=== PATIENT | male | born 1950 | race Caucasian/White ===

== ENCOUNTER → 2016-04-27 | Outpatient (CLI) | payer MEDICARE, OTHER ==
[~2016-04-27] VITALS: Ht 177.8 cm; Wt 124.3 kg
[~2016-04-27] MED LIST: ADENOSINE 104 MG in GIVE UN-DILUTED 0 ML IV ONE; ADENOSINE 90 MG/30 ML INJ IV ONE
== END | disposition home or self-care (01) ==
LOC: Rad HDHVI 08:05
PROVIDERS: ATTEND Internal Medicine Cardiovascular Disease
DX: I10 Essential (primary) hypertension (principal); E11.9 Type 2 diabetes mellitus without complications; E78.00 Pure hypercholesterolemia, unspecified; Z95.0 Presence of cardiac pacemaker
CPT/HCPCS: 78452; 93005; 96374; 96375; A9500; J0153

== ENCOUNTER → 2016-06-12 | Outpatient (CLI) | payer MEDICARE, OTHER ==
[2016-06-12 11:32] LABS: INR 2.2 (0.7-1.3); Prothrombin Time 26.3 sec (9.0-12.0)
== END | disposition home or self-care (01) ==
LOC: LAB 11:18
PROVIDERS: ATTEND Internal Medicine Cardiovascular Disease
DX: R79.1 Abnormal coagulation profile (principal)
CPT/HCPCS: 85610

== ENCOUNTER → 2016-07-18 | Outpatient (CLI) | payer MEDICARE, OTHER ==
[2016-07-18 12:39] LABS: Urine Bilirubin Negative (Negative); Urine Blood Negative /uL (Negative); Urine Color Yellow (Yellow); Urine Glucose Normal (Normal); Urine Ketone Negative (Negative); Urine Nitrite Negative (Negative); Urine Urobilinogen Normal (Negative); Urine pH 6.5 (5.0-8.0)
== END | disposition home or self-care (01) ==
LOC: LAB 10:45
PROVIDERS: ATTEND Internal Medicine Cardiovascular Disease
DX: N39.0 Urinary tract infection, site not specified (principal)
CPT/HCPCS: 81003

== ENCOUNTER → 2016-09-06 | Outpatient (CLI) | payer MEDICARE, OTHER ==
[2016-09-06 16:57] LABS: INR 2.4 (0.7-1.3); Prothrombin Time 28.9 sec (9.0-12.0)
== END | disposition home or self-care (01) ==
LOC: LAB 15:23
PROVIDERS: ATTEND Internal Medicine Cardiovascular Disease
DX: R79.1 Abnormal coagulation profile (principal)
CPT/HCPCS: 85610

== ENCOUNTER → 2016-09-13 | Outpatient (CLI) | payer MEDICARE | END | disposition home or self-care (01) | LOC: Rad HDHVI 08:43 | PROVIDERS: ATTEND Internal Medicine Cardiovascular Disease | DX: M47.812 Spondylosis without myelopathy or radiculopathy, cervical region (principal); M48.02 Spinal stenosis, cervical region; M12.88 Other specific arthropathies, not elsewhere classified, other specified site; M77.9 Enthesopathy, unspecified; M40.292 Other kyphosis, cervical region | CPT/HCPCS: 72125 ==

== ENCOUNTER → 2016-11-17 | Outpatient (CLI) | payer MEDICARE ==
[2016-11-17 12:54] LABS: Basophils # (auto) 0 uL; CONDITION Y; Eosinophils # (auto) 0 uL; Eosinophils % (auto) 0.1 % (0.0-7.0); Hematocrit 38.4 % (41.0-53.0); Hemoglobin 12.9 g/dL (13.5-17.5); Lymphocytes # (auto) 0.7 uL; Lymphocytes % (auto) 9.7 % (10.0-50.0); Mean Corpuscular Hgb Conc. 33.7 g/dL (32.0-36.0); Mean Corpuscular Volume 94.9 fL (80.0-100.0); Monocytes # (auto) 0.5 uL; Monocytes % (auto) 7.1 % (0.0-12.0); Neutrophils % (auto) 83.1 % (37.0-80.0); Platelet Count (auto) 216 10^3/uL (140-450); Red Cell Distribution Width 14.4 % (11.6-16.0); White Blood Cell 7.3 10^3/uL (4.4-10.8)
[2016-11-17 13:07] LABS: Albumin 3.6 g/dL (3.4-5.0); BUN/Creatinine Ratio 26.5; Bilirubin, Direct 0.1 mg/dL (0-0.2); Bilirubin, Total 0.8 mg/dL (0.2-1.0); Calcium 8.4 mg/dL (8.5-10.1)
[2016-11-17 13:14] LABS: Urine Bilirubin Negative (Negative); Urine Blood Negative /uL (Negative); Urine Color Yellow (Yellow); Urine Glucose Normal (Normal); Urine Ketone Negative (Negative); Urine Nitrite Negative (Negative); Urine Urobilinogen Normal (Negative); Urine pH 5.5 (5.0-8.0)
== END | disposition home or self-care (01) ==
LOC: LAB 08:10
PROVIDERS: ATTEND Internal Medicine Cardiovascular Disease
DX: I10 Essential (primary) hypertension (principal); E78.00 Pure hypercholesterolemia, unspecified; K74.1 Hepatic sclerosis; E11.9 Type 2 diabetes mellitus without complications; R97.20 Elevated prostate specific antigen [PSA]; R53.81 Other malaise; E03.9 Hypothyroidism, unspecified; D64.9 Anemia, unspecified; E55.9 Vitamin D deficiency, unspecified; N39.0 Urinary tract infection, site not specified
CPT/HCPCS: 36415; 80048; 80061; 80076; 81003; 82306; 83036; 84153; 84403; 84443; 85025

== ENCOUNTER → 2017-02-12 | Outpatient (CLI) | payer MEDICARE | END | disposition home or self-care (01) | LOC: LAB 10:39 | PROVIDERS: ATTEND Internal Medicine Cardiovascular Disease | DX: R79.1 Abnormal coagulation profile (principal) | CPT/HCPCS: 85610 ==

== ENCOUNTER → 2017-04-02 | Outpatient (CLI) | payer MEDICARE ==
[~2017-04-02] MED LIST changes: -ADENOSINE 104 MG in GIVE UN-DILUTED 0 ML IV ONE; -ADENOSINE 90 MG/30 ML INJ IV ONE; +IOHEXOL 350 MG/ML 100ML IJ ONE
[2017-04-02 11:40] VITALS: BP 114/76
[2017-04-02 12:10] VITALS: BP 107/72
[2017-04-02 16:22] LABS: BUN/Creatinine Ratio 15.3; Basophils # (auto) 0 uL; Basophils % (auto) 0.3 % (0.0-2.0); Calcium 8.9 mg/dL (8.5-10.1); Eosinophils # (auto) 0.1 uL; Eosinophils % (auto) 1.1 % (0.0-7.0); Hematocrit 40.4 % (41.0-53.0); Hemoglobin 13.2 g/dL (13.5-17.5); Lymphocytes # (auto) 1.1 uL; Lymphocytes % (auto) 14.3 % (10.0-50.0); Mean Corpuscular Hemoglobin 31.4 pg (28.0-32.0); Mean Corpuscular Hgb Conc. 32.8 g/dL (32.0-36.0); Mean Corpuscular Volume 95.7 fL (80.0-100.0); Mean Platelet Volume 8.1 fL (6.9-10.8); Monocytes # (auto) 0.7 uL; Monocytes % (auto) 8.6 % (0.0-12.0); Neutrophils % (auto) 75.7 % (37.0-80.0); Nucleated Red Blood Cells % 0.3 %; Platelet Count (auto) 199 10^3/uL (140-450); Potassium 4.3 mmol/L (3.5-5.1); Red Cell Distribution Width 14.1 % (11.8-14.3); White Blood Cell 7.9 10^3/uL (4.4-10.8)
== END | disposition home or self-care (01) ==
LOC: Rad HDHVI 11:24
PROVIDERS: ATTEND Internal Medicine Cardiovascular Disease
DX: I51.7 Cardiomegaly (principal); I25.10 Atherosclerotic heart disease of native coronary artery without angina pectoris; M47.899 Other spondylosis, site unspecified; I10 Essential (primary) hypertension; D64.9 Anemia, unspecified; R94.4 Abnormal results of kidney function studies
CPT/HCPCS: 36415; 71275; 80048; 82565; 85025; 96374; G0463; Q9967

== ENCOUNTER → 2017-04-04 | Outpatient (CLI) | payer MEDICARE | END | disposition home or self-care (01) | LOC: Rad HDHVI 10:10 | PROVIDERS: ATTEND Internal Medicine Cardiovascular Disease | DX: I34.0 Nonrheumatic mitral (valve) insufficiency (principal); I51.7 Cardiomegaly; I70.0 Atherosclerosis of aorta | CPT/HCPCS: 93306 ==

== ENCOUNTER → 2017-07-26 | Outpatient (CLI) | payer MEDICARE | END | disposition home or self-care (01) | LOC: LAB 14:04 | PROVIDERS: ATTEND Internal Medicine | DX: R79.1 Abnormal coagulation profile (principal); I10 Essential (primary) hypertension; E11.9 Type 2 diabetes mellitus without complications; E78.00 Pure hypercholesterolemia, unspecified | CPT/HCPCS: 85610 ==

== ENCOUNTER 2018-02-25 05:43 | Emergency (ER) | payer MEDICARE ==
[~2018-02-25] VITALS: Ht 177.8 cm; Wt 117.9 kg
[2018-02-25 05:58] VITALS: BP 119/73
== END 2018-02-25 07:57 | disposition home or self-care (01) ==
LOC: ER 05:47
DX: R21 Rash and other nonspecific skin eruption (principal); I50.9 Heart failure, unspecified; Z95.0 Presence of cardiac pacemaker; Z88.0 Allergy status to penicillin; Z88.1 Allergy status to other antibiotic agents

== ENCOUNTER → 2018-04-18 | Outpatient (CLI) | payer MEDICARE ==
[2018-04-18 12:31] LABS: Urine Blood Negative /uL (Negative); Urine Specific Gravity 1.018 (1.001-1.035)
[2018-04-18 12:33] LABS: Basophils # (auto) 0 uL; Basophils % (auto) 0.5 % (0.0-2.0); Eosinophils # (auto) 0.1 uL; Eosinophils % (auto) 1.1 % (0.0-7.0); Hemoglobin 13.8 g/dL (13.5-17.5); Lymphocytes # (auto) 0.9 uL; Mean Corpuscular Hemoglobin 31.1 pg (28.0-32.0); Mean Corpuscular Hgb Conc. 32.2 g/dL (32.0-36.0); Mean Corpuscular Volume 96.4 fL (80.0-100.0); Monocytes # (auto) 0.4 uL; Monocytes % (auto) 7.5 % (0.0-12.0); Neutrophils # (auto) 3.6 uL; Neutrophils % (auto) 72.9 % (37.0-80.0); Nucleated Red Blood Cells % 0.3 %; Platelet Count (auto) 162 10^3/uL (140-450); Red Blood Cells 4.46 10^6/uL (4.5-5.90); Red Cell Distribution Width 14.7 % (11.8-14.3)
[2018-04-18 13:28] LABS: Potassium 4.5 mmol/L (3.5-5.1)
[2018-04-18 13:30] LABS: Free T4 (Free Thyroxine) 1.14 ng/dL (0.89-1.76); Prostate Specific Antigen 0.32 ng/mL (0.0-4.0)
[2018-04-18 13:46] LABS: Albumin 3.2 g/dL (3.4-5.0); BUN/Creatinine Ratio 19.3; Bilirubin, Total 0.4 mg/dL (0.2-1.0); Calcium 8.5 mg/dL (8.5-10.1); Total Protein 6.5 g/dL (6.4-8.2)
== END | disposition home or self-care (01) ==
LOC: LAB 08:10
PROVIDERS: ATTEND Internal Medicine Cardiovascular Disease
DX: E03.9 Hypothyroidism, unspecified (principal); E55.9 Vitamin D deficiency, unspecified; E11.9 Type 2 diabetes mellitus without complications; D51.9 Vitamin B12 deficiency anemia, unspecified; C61 Malignant neoplasm of prostate; E29.0 Testicular hyperfunction; N39.0 Urinary tract infection, site not specified; R79.1 Abnormal coagulation profile
CPT/HCPCS: 36415; 80053; 80061; 81003; 82306; 82607; 83036; 84153; 84403; 84439; 84443; 85025; 85610

== ENCOUNTER → 2018-05-14 | Outpatient (CLI) | payer MEDICARE | END | disposition home or self-care (01) | LOC: Rad HDHVI 15:46 | PROVIDERS: ATTEND Internal Medicine | DX: Z01.818 Encounter for other preprocedural examination (principal) | CPT/HCPCS: 71046 ==

== ENCOUNTER → 2018-08-06 | Outpatient (CLI) | payer MEDICARE | END | disposition home or self-care (01) | LOC: LAB 13:10 | PROVIDERS: ATTEND Internal Medicine | DX: R79.1 Abnormal coagulation profile (principal) | CPT/HCPCS: 85610 ==

== ENCOUNTER → 2018-09-24 | Outpatient (CLI) | payer MEDICARE | END | disposition home or self-care (01) | LOC: LAB 10:23 | PROVIDERS: ATTEND Internal Medicine | DX: R79.1 Abnormal coagulation profile (principal) | CPT/HCPCS: 85610 ==

== ENCOUNTER → 2019-01-20 | Outpatient (CLI) | payer MEDICARE | END | disposition home or self-care (01) | LOC: Rad HDHVI 13:57 | PROVIDERS: ATTEND Internal Medicine | DX: I07.1 Rheumatic tricuspid insufficiency (principal); I11.0 Hypertensive heart disease with heart failure; I50.9 Heart failure, unspecified; I42.9 Cardiomyopathy, unspecified | CPT/HCPCS: 93306 ==

== ENCOUNTER → 2019-01-29 | Outpatient (CLI) | payer MEDICARE ==
[~2019-01-29] VITALS: Ht 177.8 cm; Wt 119.7 kg
[~2019-01-29] MED LIST changes: +ADENOSINE 101 MG in GIVE UN-DILUTED 0 ML IV ONE; +ADENOSINE 90 MG/30 ML INJ IV ONE; -IOHEXOL 350 MG/ML 100ML IJ ONE
[2019-01-29 16:01] LABS: Albumin 3.4 g/dL (3.4-5.0); Basophils # (auto) 0 uL; Basophils % (auto) 0.8 % (0.0-2.0); Calcium 8.8 mg/dL (8.5-10.1); Eosinophils # (auto) 0.2 uL; Eosinophils % (auto) 4.9 % (0.0-7.0); Hematocrit 39.6 % (41.0-53.0); Hemoglobin 12.9 g/dL (13.5-17.5); Lymphocytes % (auto) 19.7 % (10.0-50.0); Mean Corpuscular Hgb Conc. 32.7 g/dL (32.0-36.0); Mean Corpuscular Volume 94.8 fL (80.0-100.0); Monocytes # (auto) 0.6 uL; Monocytes % (auto) 10.9 % (0.0-12.0); Neutrophils # (auto) 3.2 uL; Neutrophils % (auto) 63.7 % (37.0-80.0); Platelet Count (auto) 169 10^3/uL (140-450); Potassium 4.1 mmol/L (3.5-5.1); Red Blood Cells 4.18 10^6/uL (4.5-5.90); Red Cell Distribution Width 14.2 % (11.8-14.3)
[2019-01-29 16:06] LABS: BUN/Creatinine Ratio 16.7; Bilirubin, Total 0.5 mg/dL (0.2-1.0)
[2019-01-29 16:11] LABS: Free T4 (Free Thyroxine) 1.03 ng/dL (0.89-1.76); Prostate Specific Antigen 0.26 ng/mL (0.0-4.0)
== END | disposition home or self-care (01) ==
LOC: Rad HDHVI 12:59
PROVIDERS: ATTEND Internal Medicine
DX: E03.9 Hypothyroidism, unspecified (principal); K90.9 Intestinal malabsorption, unspecified; C61 Malignant neoplasm of prostate; E29.1 Testicular hypofunction; N39.0 Urinary tract infection, site not specified; D51.9 Vitamin B12 deficiency anemia, unspecified; Z79.899 Other long term (current) drug therapy
CPT/HCPCS: 36415; 78452; 80053; 80061; 82306; 82607; 83036; 84153; 84403; 84439; 84443; 85025; 93005; 96374; 96375; A9500; J0153

== ENCOUNTER → 2019-02-25 | Outpatient (CLI) | payer MEDICARE ==
[~2019-02-25] MED LIST changes: -ADENOSINE 101 MG in GIVE UN-DILUTED 0 ML IV ONE; -ADENOSINE 90 MG/30 ML INJ IV ONE; +ALPR0.25 PO; +CARV25TA55 PO; +CHOL20002 PO; +COEN30CA10 PO; +FLUO10CA15 PO; +FURO40TA4 PO; +GLIP10TA9 PO; +HYDR-4833 PO; +LISI10TA6 PO; +METF500T PO; +SACU1TAB7 PO; +SIMV-13 PO; +SPIR25TA8 PO; +VENL150T19 PO; +WARF6TAB21 PO
[2019-02-25 09:36] VITALS: BP 96/57
[2019-02-25 09:49] VITALS: BP 91/57
--- NOTE | 2019-02-25 09:49 | NUR ---
Pre-Op Discharge Summary: See e-MAR for any medications given for this visit. Pre-op orders received and carried out per MD of EKG, LABS and chest xrays. Patient given a copy of EKG with instructions to go to [facility] out patient for further follow up care.
[2019-02-25 11:56] LABS: Basophils # (auto) 0.1 uL; Basophils % (auto) 1.1 % (0.0-2.0); Eosinophils # (auto) 0.2 uL; Eosinophils % (auto) 4.7 % (0.0-7.0); Hematocrit 39.5 % (41.0-53.0); Hemoglobin 12.9 g/dL (13.5-17.5); Lymphocytes # (auto) 0.7 uL; Lymphocytes % (auto) 15.7 % (10.0-50.0); Mean Corpuscular Hemoglobin 30.9 pg (28.0-32.0); Mean Corpuscular Hgb Conc. 32.7 g/dL (32.0-36.0); Mean Corpuscular Volume 94.6 fL (80.0-100.0); Monocytes # (auto) 0.4 uL; Neutrophils # (auto) 3.3 uL; Neutrophils % (auto) 70.5 % (37.0-80.0); Nucleated Red Blood Cells % 0.1 %; Platelet Count (auto) 154 10^3/uL (140-450); Red Blood Cells 4.18 10^6/uL (4.5-5.90); Red Cell Distribution Width 14.1 % (11.8-14.3); White Blood Cell 4.7 10^3/uL (4.4-10.8)
[2019-02-25 11:57] LABS: Calcium 8.6 mg/dL (8.5-10.1); Potassium 4.3 mmol/L (3.5-5.1)
[2019-02-25 12:01] LABS: INR 1.74 (0.9-1.15); Partial Thromboplastin Time 31.7 sec (23.64-32.05)
== END | disposition home or self-care (01) ==
LOC: Rad HDHVI 09:19
PROVIDERS: ATTEND Internal Medicine Cardiovascular Disease
DX: Z01.812 Encounter for preprocedural laboratory examination (principal); I70.0 Atherosclerosis of aorta; J98.11 Atelectasis; M25.78 Osteophyte, vertebrae
CPT/HCPCS: 36415; 71046; 80048; 85025; 85610; 85730; 93005; G0463

== ENCOUNTER 2019-02-27 07:59 | Day surgery (SDC) | payer MEDICARE ==
[~2019-02-27] VITALS: Ht 177.8 cm; Wt 116.6 kg
[2019-02-27] MEDS ORDERED: IOHEXOL 350 MG/ML 100ML IJ ONE (10:54)
[2019-02-27] MEDS ORDERED: LIDOCAINE 2%HCL (LOCAL ANESTH.) INJ 20ML MDV ONE (10:54)
[2019-02-27] MEDS ORDERED: SODIUM CHL 0.9% 0 ML ONE (11:01)
[2019-02-27] MEDS ORDERED: ANGIOMAX 250 MG VIAL IV ONE (11:01)
[2019-02-27] MEDS ORDERED: fentaNYL CITRATE 100 MCG/2 ML VL ONE (11:01)
[2019-02-27] MEDS ORDERED: MIDAZOLAM HCL 1MG/1ML-2 ML VIAL ONE (11:01)
== END 2019-02-27 13:30 | disposition home or self-care (01) ==
LOC: CATH 07:59
PROVIDERS: ATTEND Internal Medicine Cardiovascular Disease
DX: I42.0 Dilated cardiomyopathy (principal); E78.5 Hyperlipidemia, unspecified; I48.0 Paroxysmal atrial fibrillation; E11.9 Type 2 diabetes mellitus without complications; I11.0 Hypertensive heart disease with heart failure; I50.9 Heart failure, unspecified; Z95.810 Presence of automatic (implantable) cardiac defibrillator; Z79.01 Long term (current) use of anticoagulants; Z79.899 Other long term (current) drug therapy; Z98.890 Other specified postprocedural states; Z87.891 Personal history of nicotine dependence; Z88.8 Allergy status to other drugs, medicaments and biological substances
CPT/HCPCS: 93458; C1760; C1894; J1644; J2250; J3010; Q9967; 99152

== ENCOUNTER → 2019-04-23 | Outpatient (CLI) | payer MEDICARE | END | disposition home or self-care (01) | LOC: LAB 11:03 | PROVIDERS: ATTEND Internal Medicine Cardiovascular Disease | DX: R79.1 Abnormal coagulation profile (principal) | CPT/HCPCS: 85610 ==

== ENCOUNTER → 2019-09-01 | Outpatient (CLI) | payer MEDICARE | END | disposition home or self-care (01) | LOC: LAB 09:43 | PROVIDERS: ATTEND Internal Medicine Cardiovascular Disease | DX: R79.1 Abnormal coagulation profile (principal) | CPT/HCPCS: 85610 ==

== ENCOUNTER → 2019-10-01 | Outpatient (CLI) | payer MEDICARE | END | disposition home or self-care (01) | LOC: LAB 10:59 | PROVIDERS: ATTEND Internal Medicine Cardiovascular Disease | DX: R79.1 Abnormal coagulation profile (principal) | CPT/HCPCS: 85610 ==

== ENCOUNTER → 2019-11-05 | Outpatient (CLI) | payer MEDICARE ==
[~2019-11-05] MED LIST changes: +LISI-648 PO; -LISI10TA6 PO
[2019-11-05 13:13] LABS: Basophils # (auto) 0 10 ^3/uL (0-0.2); Basophils % (auto) 0.4 % (0.0-2.0); Eosinophils # (auto) 0.1 10 ^3/uL (0-0.8); Eosinophils % (auto) 1.9 % (0.0-7.0); Hemoglobin 13.6 g/dL (13.5-17.5); Lymphocytes # (auto) 0.9 10 ^3/uL (0.4-5.4); Lymphocytes % (auto) 14.9 % (10.0-50.0); Mean Corpuscular Hemoglobin 31.2 pg (28.0-32.0); Mean Corpuscular Hgb Conc. 33.2 g/dL (32.0-36.0); Mean Corpuscular Volume 93.9 fL (80.0-100.0); Monocytes # (auto) 0.4 10 ^3/uL (0-1.3); Monocytes % (auto) 7.5 % (0.0-12.0); Neutrophils # (auto) 4.4 10 ^3/uL (1.6-8.6); Neutrophils % (auto) 75.3 % (37.0-80.0); Platelet Count (auto) 207 10^3/uL (140-450); Red Blood Cells 4.37 10^6/uL (4.5-5.90); Red Cell Distribution Width 14.7 % (11.8-14.3); White Blood Cell 5.9 10^3/uL (4.4-10.8)
[2019-11-05 13:30] LABS: INR 3.35 (0.9-1.15); Partial Thromboplastin Time 34.4 sec (23.64-32.05)
[2019-11-05 13:47] LABS: Albumin 3.4 g/dL (3.4-5.0); Calcium 9.2 mg/dL (8.5-10.1)
[2019-11-05 13:51] LABS: Bilirubin, Direct 0.2 mg/dL (0-0.2); Bilirubin, Total 0.5 mg/dL (0.2-1.0); Total Protein 7.2 g/dL (6.4-8.2)
== END | disposition home or self-care (01) ==
LOC: LAB 12:26
PROVIDERS: ATTEND Internal Medicine Cardiovascular Disease
DX: C61 Malignant neoplasm of prostate (principal); E03.9 Hypothyroidism, unspecified; K90.9 Intestinal malabsorption, unspecified; N39.0 Urinary tract infection, site not specified; D51.9 Vitamin B12 deficiency anemia, unspecified; E29.1 Testicular hypofunction; Z00.00 Encounter for general adult medical examination without abnormal findings; Z79.899 Other long term (current) drug therapy
CPT/HCPCS: 36415; 80048; 80061; 80076; 82306; 83036; 84153; 84403; 84443; 85025; 85610; 85730

== ENCOUNTER → 2019-12-10 | Outpatient (CLI) | payer MEDICARE ==
[2019-12-10 12:20] LABS: Basophils # (auto) 0 10 ^3/uL (0-0.2); Basophils % (auto) 0.5 % (0.0-2.0); Eosinophils # (auto) 0.1 10 ^3/uL (0-0.8); Eosinophils % (auto) 2.5 % (0.0-7.0); Hematocrit 33.4 % (41.0-53.0); Hemoglobin 11.2 g/dL (13.5-17.5); Lymphocytes # (auto) 0.7 10 ^3/uL (0.4-5.4); Lymphocytes % (auto) 12.3 % (10.0-50.0); Mean Corpuscular Hemoglobin 31.7 pg (28.0-32.0); Mean Corpuscular Hgb Conc. 33.4 g/dL (32.0-36.0); Mean Corpuscular Volume 94.9 fL (80.0-100.0); Monocytes # (auto) 0.5 10 ^3/uL (0-1.3); Monocytes % (auto) 9.6 % (0.0-12.0); Neutrophils # (auto) 4.1 10 ^3/uL (1.6-8.6); Neutrophils % (auto) 75.1 % (37.0-80.0); Platelet Count (auto) 177 10^3/uL (140-450); Red Blood Cells 3.52 10^6/uL (4.5-5.90); White Blood Cell 5.5 10^3/uL (4.4-10.8)
[2019-12-10 12:32] LABS: Urine Blood Negative /uL (Negative); Urine Specific Gravity 1.024 (1.001-1.035)
== END | disposition home or self-care (01) ==
LOC: Rad HDHVI 10:29
PROVIDERS: ATTEND Internal Medicine Cardiovascular Disease
DX: D64.9 Anemia, unspecified (principal); N39.0 Urinary tract infection, site not specified; R50.9 Fever, unspecified
CPT/HCPCS: 36415; 71046; 81003; 85025

== ENCOUNTER → 2019-12-15 | Outpatient (CLI) | payer MEDICARE | END | disposition home or self-care (01) | LOC: Rad HDHVI 07:58 | PROVIDERS: ATTEND Internal Medicine Cardiovascular Disease | DX: I34.0 Nonrheumatic mitral (valve) insufficiency (principal); I51.7 Cardiomegaly; I50.43 Acute on chronic combined systolic (congestive) and diastolic (congestive) heart failure; I42.0 Dilated cardiomyopathy; R00.2 Palpitations | CPT/HCPCS: 93306 ==

== ENCOUNTER → 2020-05-20 | Outpatient (CLI) | payer MEDICARE | END | disposition home or self-care (01) | LOC: LAB 14:08 | PROVIDERS: ATTEND Internal Medicine | DX: R79.1 Abnormal coagulation profile (principal) | CPT/HCPCS: 85610 ==

== ENCOUNTER → 2020-07-07 | Outpatient (CLI) | payer MEDICARE | END | disposition home or self-care (01) | LOC: Rad HDHVI 09:46 | PROVIDERS: ATTEND Internal Medicine Cardiovascular Disease | DX: I08.0 Rheumatic disorders of both mitral and aortic valves (principal); R07.89 Other chest pain | CPT/HCPCS: 93306 ==

== ENCOUNTER → 2020-07-16 | Outpatient (CLI) | payer MEDICARE ==
[2020-07-16 11:34] LABS: Urine Blood Negative /uL (Negative); Urine Specific Gravity 1.023 (1.001-1.035)
[2020-07-16 11:35] LABS: Basophils # (auto) 0 10 ^3/uL (0-0.2); Basophils % (auto) 0.7 % (0.0-2.0); Eosinophils # (auto) 0.1 10 ^3/uL (0-0.8); Eosinophils % (auto) 1.6 % (0.0-7.0); Hematocrit 34.9 % (41.0-53.0); Hemoglobin 11.8 g/dL (13.5-17.5); Lymphocytes # (auto) 1.3 10 ^3/uL (0.4-5.4); Lymphocytes % (auto) 20.2 % (10.0-50.0); Mean Corpuscular Hemoglobin 32.3 pg (28.0-32.0); Mean Corpuscular Hgb Conc. 33.6 g/dL (32.0-36.0); Mean Corpuscular Volume 95.9 fL (80.0-100.0); Monocytes # (auto) 0.5 10 ^3/uL (0-1.3); Monocytes % (auto) 7.9 % (0.0-12.0); Neutrophils # (auto) 4.4 10 ^3/uL (1.6-8.6); Neutrophils % (auto) 69.6 % (37.0-80.0); Platelet Count (auto) 161 10^3/uL (140-450); Red Blood Cells 3.64 10^6/uL (4.5-5.90); Red Cell Distribution Width 14.2 % (11.8-14.3); White Blood Cell 6.3 10^3/uL (4.4-10.8)
[2020-07-16 11:43] LABS: Albumin 3.2 g/dL (3.4-5.0); BUN/Creatinine Ratio 18.8; Calcium 8.8 mg/dL (8.5-10.1); Potassium 4.3 mmol/L (3.5-5.1)
[2020-07-16 11:47] LABS: Bilirubin, Total 0.5 mg/dL (0.2-1.0); Total Protein 6.2 g/dL (6.4-8.2)
[2020-07-16 11:57] LABS: Free T4 (Free Thyroxine) 1.27 ng/dL (0.89-1.76)
[2020-07-16 11:58] LABS: Prostate Specific Antigen 0.13 ng/mL (0.0-4.0)
== END | disposition home or self-care (01) ==
LOC: LAB 08:00
PROVIDERS: ATTEND Internal Medicine Cardiovascular Disease
DX: C61 Malignant neoplasm of prostate (principal); D51.3 Other dietary vitamin B12 deficiency anemia; I10 Essential (primary) hypertension; E11.9 Type 2 diabetes mellitus without complications; E55.9 Vitamin D deficiency, unspecified; D64.9 Anemia, unspecified; R00.2 Palpitations; R53.1 Weakness; R30.0 Dysuria
CPT/HCPCS: 36415; 80053; 80061; 81003; 82306; 82607; 83036; 84153; 84403; 84439; 84443; 85025

== ENCOUNTER 2020-08-11 18:43 | Emergency (ER) | payer MEDICARE ==
[~2020-08-11] VITALS: Ht 177.8 cm; Wt 113.4 kg
[~2020-08-11 18:43] MED LIST changes: -LISI-648 PO; +LISI-716 PO
[2020-08-12] MEDS ORDERED: LIDOCAINE VISCOUS 2% 15ML UD PO ONE (00:30)
[2020-08-12 01:30] VITALS: BP 110/73
== END 2020-08-12 01:38 | disposition home or self-care (01) ==
LOC: ER 18:44
DX: R07.0 Pain in throat (principal); I50.9 Heart failure, unspecified; Z88.1 Allergy status to other antibiotic agents; Z79.899 Other long term (current) drug therapy
CPT/HCPCS: 70360; 70490

== ENCOUNTER → 2021-03-30 | Outpatient (CLI) | payer MEDICARE ==
[2021-03-30 11:28] LABS: Urine Blood Negative /uL (Negative); Urine Specific Gravity 1.025 (1.001-1.035)
[2021-03-30 11:30] LABS: Basophils # (auto) 0 10 ^3/uL (0-0.2); Basophils % (auto) 0.6 % (0.0-2.0); Eosinophils # (auto) 0.1 10 ^3/uL (0-0.8); Eosinophils % (auto) 1.3 % (0.0-7.0); Hematocrit 35.8 % (41.0-53.0); Hemoglobin 11.8 g/dL (13.5-17.5); Lymphocytes # (auto) 0.9 10 ^3/uL (0.4-5.4); Lymphocytes % (auto) 16.1 % (10.0-50.0); Mean Corpuscular Hemoglobin 31.2 pg (28.0-32.0); Mean Corpuscular Hgb Conc. 32.9 g/dL (32.0-36.0); Mean Corpuscular Volume 94.8 fL (80.0-100.0); Monocytes # (auto) 0.4 10 ^3/uL (0-1.3); Monocytes % (auto) 7.4 % (0.0-12.0); Neutrophils # (auto) 4.1 10 ^3/uL (1.6-8.6); Neutrophils % (auto) 74.6 % (37.0-80.0); Nucleated Red Blood Cells % 0.1 %; Red Blood Cells 3.77 10^6/uL (4.5-5.90); Red Cell Distribution Width 14.7 % (11.8-14.3); White Blood Cell 5.5 10^3/uL (4.4-10.8)
[2021-03-30 11:40] LABS: INR 1.62 (0.9-1.15); Partial Thromboplastin Time 27.8 sec (23.6-33.0)
[2021-03-30 11:46] LABS: Albumin 3.1 g/dL (3.4-5.0); BUN/Creatinine Ratio 23.9; Calcium 8.6 mg/dL (8.5-10.1); Potassium 4.3 mmol/L (3.5-5.1)
[2021-03-30 11:50] LABS: Bilirubin, Total 0.5 mg/dL (0.2-1.0); Total Protein 6.4 g/dL (6.4-8.2)
[2021-03-30 11:55] LABS: Free T4 (Free Thyroxine) 1.15 ng/dL (0.89-1.76); Prostate Specific Antigen 0.08 ng/mL (0.0-4.0)
== END | disposition home or self-care (01) ==
LOC: LAB 08:01
PROVIDERS: ATTEND Internal Medicine Cardiovascular Disease
DX: C61 Malignant neoplasm of prostate (principal); D51.3 Other dietary vitamin B12 deficiency anemia; E11.9 Type 2 diabetes mellitus without complications; R00.2 Palpitations; D64.9 Anemia, unspecified; R53.1 Weakness; R30.0 Dysuria; E55.9 Vitamin D deficiency, unspecified; I11.0 Hypertensive heart disease with heart failure; I50.9 Heart failure, unspecified
CPT/HCPCS: 36415; 80053; 80061; 81003; 82306; 82607; 83036; 84153; 84403; 84439; 84443; 85025; 85610; 85730; 87086

== ENCOUNTER → 2021-04-11 | Outpatient (CLI) | payer MEDICARE | END | disposition home or self-care (01) | LOC: Rad HDHVI 07:59 | PROVIDERS: ATTEND Internal Medicine Cardiovascular Disease | DX: I65.22 Occlusion and stenosis of left carotid artery (principal); I10 Essential (primary) hypertension; E78.5 Hyperlipidemia, unspecified | CPT/HCPCS: 93880 ==

== ENCOUNTER → 2021-05-12 | Outpatient (CLI) | payer MEDICARE | END | disposition home or self-care (01) | LOC: Rad HDHVI 12:46 | PROVIDERS: ATTEND Internal Medicine Cardiovascular Disease | DX: I08.0 Rheumatic disorders of both mitral and aortic valves (principal); R00.2 Palpitations; R42 Dizziness and giddiness | CPT/HCPCS: 93306 ==

== ENCOUNTER 2021-08-11 08:03 | Inpatient (IN) | payer MEDICARE ==
[~2021-08-11] VITALS: Ht 177.8 cm; Wt 113.0 kg
[2021-08-11] VITALS (22 sets, daily range): BP systolic 73–120; BP diastolic 38–64
[2021-08-11 08:58] LABS: Basophils # (auto) 0 10 ^3/uL (0-0.2); Basophils % (auto) 0.4 % (0.0-2.0); Eosinophils # (auto) 0.1 10 ^3/uL (0-0.8); Eosinophils % (auto) 1.7 % (0.0-7.0); Hemoglobin 12.3 g/dL (13.5-17.5); Lymphocytes # (auto) 1.2 10 ^3/uL (0.4-5.4); Lymphocytes % (auto) 13.6 % (10.0-50.0); Mean Corpuscular Hemoglobin 31.3 pg (28.0-32.0); Mean Corpuscular Hgb Conc. 33.2 g/dL (32.0-36.0); Mean Corpuscular Volume 94.2 fL (80.0-100.0); Monocytes # (auto) 0.4 10 ^3/uL (0-1.3); Monocytes % (auto) 4.8 % (0.0-12.0); Neutrophils # (auto) 6.8 10 ^3/uL (1.6-8.6); Neutrophils % (auto) 79.5 % (37.0-80.0); Red Blood Cells 3.93 10^6/uL (4.5-5.90); Red Cell Distribution Width 13.8 % (11.8-14.3); White Blood Cell 8.5 10^3/uL (4.4-10.8)
[2021-08-11 09:18] LABS: Albumin 3.6 g/dL (3.4-5.0); Calcium 9.1 mg/dL (8.5-10.1); Potassium 4.3 mmol/L (3.5-5.1)
[2021-08-11 09:20] LABS: BUN/Creatinine Ratio 23.6
[2021-08-11 09:23] LABS: Bilirubin, Total 0.5 mg/dL (0.2-1.0)
[2021-08-11] MEDS ORDERED: FUROSEMIDE 20 MG/2 ML VIAL IV ONE (11:15)
[2021-08-11] MEDS ORDERED: levoFLOXacin 750MG 150 ML IV ONE ×2 (11:15→12:00)
[2021-08-11] MEDS ORDERED: MORPHINE SULFATE INJ 2 MG/ml SYRG IV PRN ×2 (11:30→12:00)
[2021-08-11] MEDS ORDERED: NITROGLYCERIN 0.4 MG SL TAB SL PRN (11:30)
[2021-08-11] MEDS ORDERED: DOBUTamine 1000MCG/ML 250 ML IV SCH (12:00)
[2021-08-11] MEDS ORDERED: DOCUSATE SOD 100 MG CAP PO PRN (12:00)
[2021-08-11] MEDS ORDERED: LORazepam 0.5 MG TAB PO PRN (12:00)
[2021-08-11] MEDS ORDERED: ACETAMINOPHEN 325 MG TAB PO PRN (12:00)
[2021-08-11] MEDS ORDERED: ONDANSETRON HCL 4 MG/2 ML VIAL IV PRN (12:00)
[2021-08-11] MEDS ORDERED: hydrALAZINE HCL 20 MG/ML VL IV PRN (12:00)
[2021-08-11] MEDS ORDERED: FUROSEMIDE 40 MG/4 ML VIAL IV ONE ×2 (12:00→15:00)
[2021-08-11 12:48] LABS: Magnesium 1.8 mg/dL (1.6-2.6); Phosphorus 3.5 mg/dL (2.5-4.90)
[2021-08-11 13:00] LABS: INR 2.34 (0.9-1.15); Partial Thromboplastin Time 29.3 sec (23.6-33.0)
[2021-08-11] MEDS: DOPamine 1600MCG/ML D5W 250 ML IV SCH (13:13)
[2021-08-11] MEDS: IPRATROPIUM BROM 0.5 MG/2.5ML INH SOL NEB SCH ×3 (13:21→22:16)
[2021-08-11] MEDS ORDERED: NOREPINEPHRINE 8 MG/250ML KIT 250 ML IV ONE (14:57)
[2021-08-11] MEDS: NOREPINEPHRINE 8 MG/250ML KIT 250 ML IV SCH (15:00)
[2021-08-11] MEDS: FUROSEMIDE 40 MG/4 ML VIAL IV SCH (18:26)
[2021-08-11] MEDS ORDERED: TEMAZEPAM 15 MG CAP PO PRN (21:45)
[2021-08-11] MEDS: ATORVASTATIN 20 MG TAB PO SCH (22:42)
[2021-08-12] VITALS (91 sets, daily range): BP systolic 70–149; BP diastolic 24–121
[2021-08-12] MEDS: NOREPINEPHRINE 8 MG/250ML KIT 250 ML IV SCH (00:46)
[2021-08-12] MEDS: DOPamine 1600MCG/ML D5W 250 ML IV SCH ×3 (00:46→12:48)
[2021-08-12] MEDS ORDERED: ALPRAZolam 0.25 MG TAB ONE (01:16)
[2021-08-12] MEDS: ALPRAZolam 0.25 MG TAB PO PRN ×2 (01:18→20:01)
[2021-08-12] MEDS: IPRATROPIUM BROM 0.5 MG/2.5ML INH SOL NEB SCH ×6 (02:27→22:04)
[2021-08-12 03:56] LABS: Basophils # (auto) 0.1 10 ^3/uL (0-0.2); Basophils % (auto) 0.4 % (0.0-2.0); Eosinophils # (auto) 0 10 ^3/uL (0-0.8); Eosinophils % (auto) 0.2 % (0.0-7.0); Hematocrit 35.3 % (41.0-53.0); Lymphocytes % (auto) 6.6 % (10.0-50.0); Mean Corpuscular Hemoglobin 31.4 pg (28.0-32.0); Mean Corpuscular Hgb Conc. 34.1 g/dL (32.0-36.0); Mean Corpuscular Volume 92.3 fL (80.0-100.0); Monocytes % (auto) 6.5 % (0.0-12.0); Neutrophils # (auto) 12.6 10 ^3/uL (1.6-8.6); Neutrophils % (auto) 86.3 % (37.0-80.0); Nucleated Red Blood Cells % 0.1 %; Red Blood Cells 3.82 10^6/uL (4.5-5.90); White Blood Cell 14.6 10^3/uL (4.4-10.8)
[2021-08-12 04:14] LABS: Albumin 2.9 g/dL (3.4-5.0); Calcium 8.6 mg/dL (8.5-10.1); Magnesium 1.2 mg/dL (1.6-2.6)
[2021-08-12 04:18] LABS: Bilirubin, Total 1.4 mg/dL (0.2-1.0); Phosphorus 2.3 mg/dL (2.5-4.90); Total Protein 6.2 g/dL (6.4-8.2)
[2021-08-12 04:31] LABS: INR 2.28 (0.9-1.15); Partial Thromboplastin Time 37.6 sec (23.6-33.0)
[2021-08-12] MEDS: FUROSEMIDE 40 MG/4 ML VIAL IV SCH (06:16)
[2021-08-12] MEDS ORDERED: levoFLOXacin 750MG 150 ML IV SCH (10:00)
[2021-08-12] MEDS ORDERED: ASPirin 81 mg TAB PO SCH (10:00)
[2021-08-12] MEDS ORDERED: SACUBITRIL-VALSARTAN 24mg/26mg TAB PO SCH (10:00)
[2021-08-12] MEDS ORDERED: ENOXAPARIN SOD 40 MG/0.4 ML SYRINGE SC SCH (10:00)
[2021-08-12] MEDS: CARVEDILOL 3.125 MG TAB PO SCH ×2 (10:00→21:49)
[2021-08-12] MEDS: CHOLECALCIFEROL (VITD3) 2,000 UNIT CAP/TAB PO SCH ×2 (10:09→13:41)
[2021-08-12] MEDS: FLUoxetine HCL 10 MG CAP PO SCH (10:10)
[2021-08-12] MEDS: FAMOTIDINE (10MG/ML) 2ML VL IV SCH (10:10)
[2021-08-12] MEDS: ACCU-CHEK COMFORT CURVE STRIP VI SCH ×3 (11:30→22:27)
[2021-08-12] MEDS ORDERED: DEXTROSE (50%) 50ML SYRG IV PRN (11:45)
[2021-08-12] MEDS: InsuLIN REG 1unit/0.01ml Soln (100units/ml) SC SCH ×3 (12:03→23:00)
[2021-08-12] MEDS: MAGNESIUM SULFATE 1GM/100ML 100 ML IV SCH ×4 (12:53→15:55)
[2021-08-12] MEDS ORDERED: MEROPENEM 500MG IVPB 50 ML IV ONE (15:00)
[2021-08-12] MEDS ORDERED: MEROPENEM 1GM IVPB 100 ML IV ONE (15:20)
[2021-08-12] MEDS: ACETAMINOPHEN 325 MG TAB PO PRN ×2 (16:22→22:28)
[2021-08-12] MEDS ORDERED: WARFARIN SODIUM 2.5 MG TAB PO ONE (17:00)
[2021-08-12] MEDS ORDERED: MEROPENEM 500MG IVPB 50 ML IV SCH (22:00)
[2021-08-12] MEDS: MELATONIN 5MG TABLET PO PRN (22:27)
[2021-08-12] MEDS: ATORVASTATIN 20 MG TAB PO SCH (22:27)
[2021-08-12] MEDS: MEROPENEM 1GM IVPB 100 ML IV SCH (23:03)
[2021-08-12] MEDS: NOREPINEPHRINE BITARTRATE 32 MG in SODIUM CHL 0.9% 218 ML IV SCH (23:04)
[2021-08-13] VITALS (86 sets, daily range): BP systolic 85–131; BP diastolic 42–83
[2021-08-13] MEDS: IPRATROPIUM BROM 0.5 MG/2.5ML INH SOL NEB SCH ×6 (02:06→22:28)
[2021-08-13] MEDS: PHENYLEPHRINE IV 250 ML IV SCH ×2 (02:45→11:05)
[2021-08-13 03:36] LABS: Basophils # (auto) 0 10 ^3/uL (0-0.2); Basophils % (auto) 0.3 % (0.0-2.0); Eosinophils # (auto) 0.1 10 ^3/uL (0-0.8); Eosinophils % (auto) 0.9 % (0.0-7.0); Hematocrit 35.1 % (41.0-53.0); Hemoglobin 11.8 g/dL (13.5-17.5); Lymphocytes # (auto) 0.8 10 ^3/uL (0.4-5.4); Mean Corpuscular Hemoglobin 31.4 pg (28.0-32.0); Mean Corpuscular Hgb Conc. 33.8 g/dL (32.0-36.0); Mean Corpuscular Volume 93.1 fL (80.0-100.0); Monocytes # (auto) 0.7 10 ^3/uL (0-1.3); Monocytes % (auto) 5.7 % (0.0-12.0); Neutrophils # (auto) 11.1 10 ^3/uL (1.6-8.6); Neutrophils % (auto) 87.1 % (37.0-80.0); Red Blood Cells 3.77 10^6/uL (4.5-5.90); Red Cell Distribution Width 14.4 % (11.8-14.3); White Blood Cell 12.8 10^3/uL (4.4-10.8)
[2021-08-13 03:50] LABS: INR 1.91 (0.9-1.15)
[2021-08-13 03:51] LABS: BUN/Creatinine Ratio 17.7; Calcium 8.7 mg/dL (8.5-10.1); Potassium 3.5 mmol/L (3.5-5.1)
[2021-08-13] MEDS: MEROPENEM 1GM IVPB 100 ML IV SCH ×3 (06:32→22:39)
[2021-08-13] MEDS: ACCU-CHEK COMFORT CURVE STRIP VI SCH ×4 (06:32→22:00)
[2021-08-13] MEDS: InsuLIN REG 1unit/0.01ml Soln (100units/ml) SC SCH ×4 (06:38→22:29)
[2021-08-13 07:28] LABS: Urine Bacteria NONE SEEN /hpf (None Seen); Urine Blood 2+ /uL (Negative); Urine Hyaline Cast FEW /lpf (0 - 2); Urine Specific Gravity 1.014 (1.001-1.035); Urine WBC 12 /hpf (0 - 3); Urine WBC Clumps PRESENT /hpf (None Seen)
[2021-08-13 07:37] LABS: Alcohol, Urine < 3.0 mg/dL (0-10); Amphetamine Screen, Urine NEGATIVE (NEGATIVE); Barbiturate Scree,Urine NEGATIVE (NEGATIVE); Benzodiazephine Screen, Urine NEGATIVE (NEGATIVE); Cannabinoid Screen, Urine NEGATIVE (NEGATIVE); Cocaine Screen, Urine NEGATIVE (NEGATIVE); Opiate Scree,Urine NEGATIVE (NEGATIVE); Phencyclidine Screen, Urine NEGATIVE (NEGATIVE)
[2021-08-13] MEDS: CARVEDILOL 3.125 MG TAB PO SCH (10:00)
[2021-08-13] MEDS: FUROSEMIDE 40 MG TAB PO SCH (10:13)
[2021-08-13] MEDS: FLUoxetine HCL 10 MG CAP PO SCH (10:14)
[2021-08-13] MEDS: FAMOTIDINE (10MG/ML) 2ML VL IV SCH (10:32)
[2021-08-13 14:19] LABS: Protein, Urine 43.6 mg/dL (0.0-11.9)
[2021-08-13 14:41] LABS: CRP High Sensitivity 13.3 mg/dL (< 0.3)
[2021-08-13] MEDS ORDERED: WARFARIN SODIUM 2 MG TAB PO ONE (17:00)
[2021-08-13] MEDS: ATORVASTATIN 20 MG TAB PO SCH (20:24)
[2021-08-13] MEDS: MELATONIN 5MG TABLET PO PRN (20:24)
[2021-08-14] VITALS (80 sets, daily range): BP systolic 83–151; BP diastolic 37–84
[2021-08-14] MEDS: IPRATROPIUM BROM 0.5 MG/2.5ML INH SOL NEB SCH ×5 (02:15→18:49)
[2021-08-14] MEDS: PHENYLEPHRINE IV 250 ML IV SCH ×3 (03:45→19:41)
[2021-08-14] MEDS ORDERED: NOREPINEPHRINE BITARTRATE 6 ML IV ONE (04:12)
[2021-08-14] MEDS ORDERED: NOREPINEPHRINE 8 MG/250ML KIT 250 ML IV ONE (04:12)
[2021-08-14 04:26] LABS: Basophils # (auto) 0 10 ^3/uL (0-0.2); Basophils % (auto) 0.4 % (0.0-2.0); Eosinophils # (auto) 0.2 10 ^3/uL (0-0.8); Eosinophils % (auto) 1.4 % (0.0-7.0); Hematocrit 34.1 % (41.0-53.0); Hemoglobin 11.3 g/dL (13.5-17.5); Lymphocytes # (auto) 0.8 10 ^3/uL (0.4-5.4); Lymphocytes % (auto) 7.3 % (10.0-50.0); Mean Corpuscular Hemoglobin 31.1 pg (28.0-32.0); Monocytes # (auto) 0.8 10 ^3/uL (0-1.3); Monocytes % (auto) 7.1 % (0.0-12.0); Neutrophils # (auto) 9.4 10 ^3/uL (1.6-8.6); Neutrophils % (auto) 83.8 % (37.0-80.0); Red Blood Cells 3.63 10^6/uL (4.5-5.90); Red Cell Distribution Width 14.3 % (11.8-14.3); White Blood Cell 11.2 10^3/uL (4.4-10.8)
[2021-08-14] MEDS: NOREPINEPHRINE BITARTRATE 32 MG in SODIUM CHL 0.9% 218 ML IV SCH ×2 (04:32→19:59)
[2021-08-14 04:45] LABS: BUN/Creatinine Ratio 16.7; Calcium 8.6 mg/dL (8.5-10.1); Potassium 3.6 mmol/L (3.5-5.1)
[2021-08-14 04:54] LABS: INR 1.95 (0.9-1.15); Partial Thromboplastin Time 38.2 sec (23.6-33.0)
[2021-08-14] MEDS: MEROPENEM 1GM IVPB 100 ML IV SCH ×3 (05:39→22:49)
[2021-08-14] MEDS: ACCU-CHEK COMFORT CURVE STRIP VI SCH ×4 (05:40→21:11)
[2021-08-14] MEDS: InsuLIN REG 1unit/0.01ml Soln (100units/ml) SC SCH ×4 (06:23→21:08)
[2021-08-14] MEDS: FLUoxetine HCL 10 MG CAP PO SCH (09:08)
[2021-08-14] MEDS: FAMOTIDINE (10MG/ML) 2ML VL IV SCH (09:08)
[2021-08-14] MEDS: FUROSEMIDE 40 MG TAB PO SCH (09:09)
[2021-08-14] MEDS ORDERED: DIGOXIN (250MCG/ML) 2 ML AMPULE IV ONE ×2 (10:00→10:30)
[2021-08-14] MEDS ORDERED: metFORMIN HYDROCHLORIDE 850 MG TAB PO ONE (15:30)
[2021-08-14] MEDS ORDERED: WARFARIN SODIUM 2 MG TAB PO ONE (17:00)
[2021-08-14] MEDS: metFORMIN HYDROCHLORIDE 850 MG TAB PO SCH (17:52)
[2021-08-14] MEDS: ATORVASTATIN 20 MG TAB PO SCH (21:06)
[2021-08-14] MEDS: MELATONIN 5MG TABLET PO PRN (21:21)
[2021-08-14] MEDS: HYDROcodone-ACET 5/325MG TAB PO PRN (21:57)
[2021-08-14] MEDS ORDERED: IPRATROPIUM BROM 0.5 MG/2.5ML INH SOL NEB PRN (22:00)
[2021-08-15] VITALS (89 sets, daily range): BP systolic 80–144; BP diastolic 52–86
[2021-08-15] MEDS: PHENYLEPHRINE IV 250 ML IV SCH ×4 (04:45→23:17)
[2021-08-15 04:57] LABS: INR 2.82 (0.9-1.15)
[2021-08-15] MEDS: MEROPENEM 1GM IVPB 100 ML IV SCH ×3 (06:05→22:09)
[2021-08-15] MEDS: InsuLIN REG 1unit/0.01ml Soln (100units/ml) SC SCH ×4 (06:06→21:15)
[2021-08-15] MEDS: ACCU-CHEK COMFORT CURVE STRIP VI SCH ×4 (06:08→21:07)
[2021-08-15] MEDS: metFORMIN HYDROCHLORIDE 850 MG TAB PO SCH (08:19)
[2021-08-15] MEDS: FAMOTIDINE (10MG/ML) 2ML VL IV SCH (09:42)
[2021-08-15] MEDS: DIGOXIN 0.125 MG TAB PO SCH (09:42)
[2021-08-15] MEDS: FUROSEMIDE 40 MG TAB PO SCH (09:42)
[2021-08-15] MEDS: FLUoxetine HCL 10 MG CAP PO SCH (09:43)
[2021-08-15 13:52] LABS: Basophils # (auto) 0 10 ^3/uL (0-0.2); Basophils % (auto) 0.7 % (0.0-2.0); Eosinophils # (auto) 0.4 10 ^3/uL (0-0.8); Eosinophils % (auto) 5.7 % (0.0-7.0); Hematocrit 35.8 % (41.0-53.0); Hemoglobin 11.9 g/dL (13.5-17.5); Lymphocytes # (auto) 0.8 10 ^3/uL (0.4-5.4); Lymphocytes % (auto) 12.5 % (10.0-50.0); Mean Corpuscular Hemoglobin 30.6 pg (28.0-32.0); Mean Corpuscular Hgb Conc. 33.3 g/dL (32.0-36.0); Mean Corpuscular Volume 91.9 fL (80.0-100.0); Monocytes # (auto) 0.6 10 ^3/uL (0-1.3); Monocytes % (auto) 9.6 % (0.0-12.0); Neutrophils # (auto) 4.6 10 ^3/uL (1.6-8.6); Neutrophils % (auto) 71.5 % (37.0-80.0); Nucleated Red Blood Cells % 0.1 %; Red Blood Cells 3.89 10^6/uL (4.5-5.90); Red Cell Distribution Width 14.2 % (11.8-14.3); White Blood Cell 6.5 10^3/uL (4.4-10.8)
[2021-08-15] MEDS ORDERED: DOBUTamine 1000MCG/ML 250 ML IV SCH (14:45)
[2021-08-15] MEDS: DOBUTamine 1000MCG/ML 250 ML IV SCH ×3 (16:02→23:16)
[2021-08-15] MEDS ORDERED: WARFARIN SODIUM 5 MG TAB PO ONE (17:00)
[2021-08-15] MEDS: ALBUMIN 25% 100 ML IV SCH ×2 (17:27→22:08)
[2021-08-15] MEDS: NOREPINEPHRINE BITARTRATE 32 MG in SODIUM CHL 0.9% 218 ML IV SCH (21:05)
[2021-08-15] MEDS: ATORVASTATIN 20 MG TAB PO SCH (21:06)
[2021-08-15] MEDS: HYDROcodone-ACET 5/325MG TAB PO PRN (21:06)
[2021-08-15] MEDS: MELATONIN 5MG TABLET PO PRN (21:07)
[2021-08-16] VITALS (89 sets, daily range): BP systolic 61–123; BP diastolic 40–73
[2021-08-16 04:35] LABS: Basophils # (auto) 0 10 ^3/uL (0-0.2); Basophils % (auto) 0.8 % (0.0-2.0); Eosinophils # (auto) 0.3 10 ^3/uL (0-0.8); Hematocrit 29.4 % (41.0-53.0); Hemoglobin 10.2 g/dL (13.5-17.5); Lymphocytes # (auto) 0.8 10 ^3/uL (0.4-5.4); Lymphocytes % (auto) 17.5 % (10.0-50.0); Mean Corpuscular Hemoglobin 31.6 pg (28.0-32.0); Mean Corpuscular Hgb Conc. 34.8 g/dL (32.0-36.0); Mean Corpuscular Volume 90.7 fL (80.0-100.0); Monocytes # (auto) 0.6 10 ^3/uL (0-1.3); Monocytes % (auto) 12.7 % (0.0-12.0); Red Blood Cells 3.24 10^6/uL (4.5-5.90); Red Cell Distribution Width 14.1 % (11.8-14.3); White Blood Cell 4.9 10^3/uL (4.4-10.8)
[2021-08-16 04:50] LABS: BUN/Creatinine Ratio 18.8; Calcium 8.4 mg/dL (8.5-10.1); Potassium 3.4 mmol/L (3.5-5.1)
[2021-08-16 05:19] LABS: INR 3.26 (0.9-1.15)
[2021-08-16] MEDS: ACCU-CHEK COMFORT CURVE STRIP VI SCH ×4 (06:02→21:32)
[2021-08-16] MEDS: InsuLIN REG 1unit/0.01ml Soln (100units/ml) SC SCH ×4 (06:03→21:31)
[2021-08-16] MEDS: glipiZIDE 5 MG TAB PO SCH (06:04)
[2021-08-16] MEDS: FAMOTIDINE (10MG/ML) 2ML VL IV SCH (10:05)
[2021-08-16] MEDS: DIGOXIN 0.125 MG TAB PO SCH (10:05)
[2021-08-16] MEDS: cefTRIAXone 1GM/50ML D5W 50 ML IV SCH (10:05)
[2021-08-16] MEDS: FLUoxetine HCL 10 MG CAP PO SCH (10:06)
[2021-08-16] MEDS: FUROSEMIDE 40 MG TAB PO SCH (10:06)
[2021-08-16] MEDS: AZITHROMYCIN 500MG/ 250ML 250 ML IV SCH (10:55)
[2021-08-16] MEDS: DOBUTamine 1000MCG/ML 250 ML IV SCH ×3 (12:54→19:44)
[2021-08-16] MEDS ORDERED: POTASSIUM CHL 20 Meq TABLET PO ONE ×2 (13:00→17:15)
[2021-08-16] MEDS: PHENYLEPHRINE IV 250 ML IV SCH ×3 (14:05→22:56)
[2021-08-16 16:13] LABS: Magnesium 1.5 mg/dL (1.6-2.6); Potassium 3.4 mmol/L (3.5-5.1)
[2021-08-16] MEDS ORDERED: WARFARIN SODIUM 2 MG TAB PO ONE (17:30)
[2021-08-16] MEDS: MAGNESIUM SULFATE 1GM/100ML 100 ML IV SCH ×2 (17:31→19:38)
[2021-08-16] MEDS: NOREPINEPHRINE BITARTRATE 32 MG in SODIUM CHL 0.9% 218 ML IV SCH (19:43)
[2021-08-16] MEDS: ATORVASTATIN 20 MG TAB PO SCH (21:31)
[2021-08-16] MEDS: HYDROcodone-ACET 5/325MG TAB PO PRN (21:32)
[2021-08-17] VITALS (18 sets, daily range): BP systolic 89–108; BP diastolic 56–66
[2021-08-17] MEDS ORDERED: TEMAZEPAM 15 MG CAP ONE (00:24)
[2021-08-17] MEDS ORDERED: TEMAZEPAM 15 MG CAP PO ONE (00:30)
[2021-08-17 04:06] LABS: Basophils # (auto) 0 10 ^3/uL (0-0.2); Basophils % (auto) 0.6 % (0.0-2.0); Eosinophils # (auto) 0.3 10 ^3/uL (0-0.8); Eosinophils % (auto) 6.6 % (0.0-7.0); Hematocrit 30.2 % (41.0-53.0); Hemoglobin 10.6 g/dL (13.5-17.5); Lymphocytes # (auto) 1.1 10 ^3/uL (0.4-5.4); Lymphocytes % (auto) 21.5 % (10.0-50.0); Mean Corpuscular Hemoglobin 31.8 pg (28.0-32.0); Mean Corpuscular Volume 90.7 fL (80.0-100.0); Monocytes # (auto) 0.8 10 ^3/uL (0-1.3); Monocytes % (auto) 14.9 % (0.0-12.0); Neutrophils # (auto) 2.8 10 ^3/uL (1.6-8.6); Neutrophils % (auto) 56.4 % (37.0-80.0); Red Blood Cells 3.33 10^6/uL (4.5-5.90)
[2021-08-17 04:22] LABS: Albumin 2.6 g/dL (3.4-5.0); BUN/Creatinine Ratio 17.9; Calcium 8.3 mg/dL (8.5-10.1); Magnesium 2.2 mg/dL (1.6-2.6); Potassium 3.7 mmol/L (3.5-5.1)
[2021-08-17 04:27] LABS: INR 2.26 (0.9-1.15)
[2021-08-17] MEDS: ACCU-CHEK COMFORT CURVE STRIP VI SCH ×3 (06:01→17:00)
[2021-08-17] MEDS: glipiZIDE 5 MG TAB PO SCH (06:01)
[2021-08-17] MEDS: InsuLIN REG 1unit/0.01ml Soln (100units/ml) SC SCH ×3 (06:01→17:54)
[2021-08-17] MEDS: FAMOTIDINE (10MG/ML) 2ML VL IV SCH (09:29)
[2021-08-17] MEDS: cefTRIAXone 1GM/50ML D5W 50 ML IV SCH (09:29)
[2021-08-17] MEDS: DIGOXIN 0.125 MG TAB PO SCH (09:30)
[2021-08-17] MEDS: FLUoxetine HCL 10 MG CAP PO SCH (09:30)
[2021-08-17] MEDS: FUROSEMIDE 40 MG TAB PO SCH (09:30)
[2021-08-17] MEDS: AZITHROMYCIN 500MG/ 250ML 250 ML IV SCH (10:32)
[2021-08-17] MEDS ORDERED: WARFARIN SODIUM 1 MG TAB PO ONE (17:00)
[2021-08-17] MEDS: ATORVASTATIN 20 MG TAB PO SCH (20:20)
[2021-08-17] MEDS: HYDROcodone-ACET 5/325MG TAB PO PRN (20:21)
[2021-08-17] MEDS: MELATONIN 5MG TABLET PO PRN (20:21)
[2021-08-18] MEDS: ACCU-CHEK COMFORT CURVE STRIP VI SCH ×3 (02:03→11:30)
[2021-08-18 05:26] VITALS: BP 96/64
[2021-08-18 05:27] LABS: Basophils # (auto) 0 10 ^3/uL (0-0.2); Basophils % (auto) 0.9 % (0.0-2.0); Eosinophils # (auto) 0.3 10 ^3/uL (0-0.8); Eosinophils % (auto) 7.1 % (0.0-7.0); Hemoglobin 10.4 g/dL (13.5-17.5); Lymphocytes # (auto) 0.8 10 ^3/uL (0.4-5.4); Lymphocytes % (auto) 18.7 % (10.0-50.0); Mean Corpuscular Hemoglobin 31.4 pg (28.0-32.0); Mean Corpuscular Hgb Conc. 34.5 g/dL (32.0-36.0); Monocytes # (auto) 0.6 10 ^3/uL (0-1.3); Monocytes % (auto) 12.9 % (0.0-12.0); Neutrophils # (auto) 2.7 10 ^3/uL (1.6-8.6); Neutrophils % (auto) 60.4 % (37.0-80.0); Nucleated Red Blood Cells % 0.1 %; Red Blood Cells 3.29 10^6/uL (4.5-5.90); Red Cell Distribution Width 13.7 % (11.8-14.3); White Blood Cell 4.5 10^3/uL (4.4-10.8)
[2021-08-18 05:40] LABS: INR 1.7 (0.9-1.15); Partial Thromboplastin Time 32.5 sec (23.6-33.0)
[2021-08-18] MEDS: InsuLIN REG 1unit/0.01ml Soln (100units/ml) SC SCH ×3 (06:53→12:00)
[2021-08-18] MEDS: glipiZIDE 5 MG TAB PO SCH (07:30)
[2021-08-18 08:38] VITALS: BP 95/57
[2021-08-18] MEDS: cefTRIAXone 1GM/50ML D5W 50 ML IV SCH (09:08)
[2021-08-18] MEDS: FUROSEMIDE 40 MG TAB PO SCH (09:09)
[2021-08-18] MEDS: DIGOXIN 0.125 MG TAB PO SCH (09:10)
[2021-08-18] MEDS ORDERED: FAMOTIDINE 20 MG TAB PO SCH (10:00)
[2021-08-18] MEDS ORDERED: AZITHROMYCIN 250 MG TAB PO SCH (10:00)
[2021-08-18] MEDS: FLUoxetine HCL 10 MG CAP PO SCH (10:00)
[2021-08-18] MEDS ORDERED: AZIT250T9 PO (10:25)
[2021-08-18 12:19] VITALS: BP 101/64
[2021-08-18 13:00] VITALS: BP 101/64
[2021-08-18] MEDS ORDERED: WARFARIN SODIUM 5 MG TAB PO ONE (17:00)
[2021-08-26] MEDS ORDERED: SACU1TAB PO (12:38)
[2021-08-26] MEDS ORDERED: CAR3125T PO (12:38)
[2021-08-26] MEDS ORDERED: ALBUAER3 IN (12:38)
[2021-08-26] MEDS ORDERED: LEVO750T8 PO (12:38)
[2021-08-26] MEDS ORDERED: FER325T PO (12:38)
== END 2021-08-18 13:10 | disposition home or self-care (01) | DRG 871 ==
LOC: ER 08:03 → TELE 11:22 → ICU WEST 14:21 → TELE-EAST 08-17 13:49
PROVIDERS: ADMIT Hospitalist; ATTEND Internal Medicine
PROC: 5A09357 Assistance with Respiratory Ventilation, Less than 24 Consecutive Hours, Continuous Positive Airway Pressure (ICD-10-PCS; principal; 2021-08-12)
DX: A41.9 Sepsis, unspecified organism (principal); J18.9 Pneumonia, unspecified organism; J96.01 Acute respiratory failure with hypoxia; R65.21 Severe sepsis with septic shock; N17.0 Acute kidney failure with tubular necrosis; I50.21 Acute systolic (congestive) heart failure; D68.59 Other primary thrombophilia; I42.9 Cardiomyopathy, unspecified; N39.0 Urinary tract infection, site not specified; J05.10 Acute epiglottitis without obstruction; E11.40 Type 2 diabetes mellitus with diabetic neuropathy, unspecified; E78.5 Hyperlipidemia, unspecified; I25.10 Atherosclerotic heart disease of native coronary artery without angina pectoris; I27.9 Pulmonary heart disease, unspecified; I48.0 Paroxysmal atrial fibrillation; E56.9 Vitamin deficiency, unspecified; E66.01 Morbid (severe) obesity due to excess calories; E87.6 Hypokalemia; E88.09 Other disorders of plasma-protein metabolism, not elsewhere classified; E11.21 Type 2 diabetes mellitus with diabetic nephropathy; G47.30 Sleep apnea, unspecified; Z20.822 Contact with and (suspected) exposure to COVID-19; Z88.0 Allergy status to penicillin; Z88.8 Allergy status to other drugs, medicaments and biological substances; Z68.35 Body mass index [BMI] 35.0-35.9, adult; Z95.810 Presence of automatic (implantable) cardiac defibrillator; Z79.84 Long term (current) use of oral hypoglycemic drugs
CPT/HCPCS: 36415; 70490; 71045; 71046; 80048; 80053; 80061; 80307; 81001; 82040; 82550; 82565; 82962; 83036; 83605; 83615; 83690; 83735; 83880; 84100; 84132; 84156; 84443; 84484; 85025; 85379; 85610; 85730; 86141; 87040; 87081; 87086; 87804; 93005; 94640; 96365; 96367; 96375; G0378; J0696; J1815; J1956; J2185; J3490; P9047

== ENCOUNTER 2021-08-21 22:20 | Inpatient (IN) | payer MEDICARE ==
[~2021-08-21] VITALS: Ht 172.7 cm; Wt 116.9 kg
[~2021-08-21 22:20] MED LIST changes: +AZIT250T9 PO
[2021-08-21] MEDS ORDERED: SODIUM CHLORIDE 0.9% 1,000 ML IV ONE (22:45)
[2021-08-21] MEDS ORDERED: cefTRIAXone 1GM/50ML D5W 50 ML IV ONE (22:45)
[2021-08-21 23:04] LABS: Basophils # (auto) 0 10 ^3/uL (0-0.2); Basophils % (auto) 0.7 % (0.0-2.0); Eosinophils # (auto) 0.2 10 ^3/uL (0-0.8); Eosinophils % (auto) 3.9 % (0.0-7.0); Hematocrit 29.6 % (41.0-53.0); Hemoglobin 10.3 g/dL (13.5-17.5); Lymphocytes % (auto) 16.2 % (10.0-50.0); Mean Corpuscular Hemoglobin 31.6 pg (28.0-32.0); Mean Corpuscular Hgb Conc. 34.8 g/dL (32.0-36.0); Mean Corpuscular Volume 90.7 fL (80.0-100.0); Monocytes # (auto) 0.5 10 ^3/uL (0-1.3); Monocytes % (auto) 8.8 % (0.0-12.0); Neutrophils # (auto) 4.4 10 ^3/uL (1.6-8.6); Neutrophils % (auto) 70.4 % (37.0-80.0); Nucleated Red Blood Cells % 0.1 %; Red Blood Cells 3.27 10^6/uL (4.5-5.90); Red Cell Distribution Width 13.9 % (11.8-14.3); White Blood Cell 6.2 10^3/uL (4.4-10.8)
[2021-08-21 23:26] LABS: Albumin 2.8 g/dL (3.4-5.0); BUN/Creatinine Ratio 20.9; Calcium 8.3 mg/dL (8.5-10.1); Magnesium 2.1 mg/dL (1.6-2.6); Potassium 3.8 mmol/L (3.5-5.1)
[2021-08-21 23:39] LABS: Bilirubin, Total 0.5 mg/dL (0.2-1.0); Total Protein 6.2 g/dL (6.4-8.2)
[2021-08-21 23:47] LABS: INR 1.21 (0.9-1.15); Partial Thromboplastin Time 27.8 sec (23.6-33.0)
[2021-08-22] MEDS ORDERED: methylPREDNISolone SOD SUCC 125 MG/2 ML VL IV ONE
[2021-08-22] MEDS: NOREPINEPHRINE 8 MG/250ML KIT 250 ML IV SCH ×2 (00:39→12:30)
[2021-08-22] MEDS ORDERED: DOCUSATE SOD 100 MG CAP PO PRN (03:30)
[2021-08-22] MEDS ORDERED: NITROGLYCERIN 0.4 MG SL TAB SL PRN (03:30)
[2021-08-22] MEDS ORDERED: ONDANSETRON HCL 4 MG/2 ML VIAL IV PRN (03:30)
[2021-08-22] MEDS ORDERED: ACETAMINOPHEN 325 MG TAB PO PRN (03:30)
[2021-08-22] MEDS ORDERED: MORPHINE SULFATE INJECTION 2 MG/ML SYRG IV PRN (03:30)
[2021-08-22] MEDS ORDERED: ALBUMIN 25% 100 ML IV ONE (03:30)
[2021-08-22] MEDS ORDERED: DEXTROSE (50%) 50ML SYRG IV PRN (03:30)
[2021-08-22 04:09] LABS: Urine Bacteria None Seen /hpf (None Seen)
[2021-08-22 04:50] LABS: Urine Specific Gravity 1.007 (1.001-1.035)
[2021-08-22 04:51] LABS: Urine Blood Normal /uL (Negative); Urine WBC 2 /hpf (0 - 3)
[2021-08-22 05:42] LABS: Basophils # (auto) 0 10 ^3/uL (0-0.2); Basophils % (auto) 0.5 % (0.0-2.0); Eosinophils # (auto) 0 10 ^3/uL (0-0.8); Eosinophils % (auto) 0.3 % (0.0-7.0); Hematocrit 29.4 % (41.0-53.0); Hemoglobin 10.3 g/dL (13.5-17.5); Lymphocytes # (auto) 0.5 10 ^3/uL (0.4-5.4); Lymphocytes % (auto) 6.2 % (10.0-50.0); Mean Corpuscular Hemoglobin 31.6 pg (28.0-32.0); Mean Corpuscular Volume 90.2 fL (80.0-100.0); Monocytes # (auto) 0.1 10 ^3/uL (0-1.3); Monocytes % (auto) 1.3 % (0.0-12.0); Neutrophils # (auto) 7.8 10 ^3/uL (1.6-8.6); Neutrophils % (auto) 91.7 % (37.0-80.0); Red Blood Cells 3.26 10^6/uL (4.5-5.90); Red Cell Distribution Width 13.9 % (11.8-14.3); White Blood Cell 8.6 10^3/uL (4.4-10.8)
[2021-08-22 06:05] LABS: Potassium 3.9 mmol/L (3.5-5.1)
[2021-08-22 06:23] LABS: Albumin 3.1 g/dL (3.4-5.0); Bilirubin, Total 0.8 mg/dL (0.2-1.0); Calcium 8.3 mg/dL (8.5-10.1); Total Protein 6.6 g/dL (6.4-8.2)
[2021-08-22] MEDS: SODIUM CHLOR 0.9% PF (SALINE LOCK) 10ML VIAL/SYR IV SCH ×3 (06:48→22:26)
[2021-08-22] MEDS: InsuLIN REG 1unit/0.01ml Soln (100units/ml) SC SCH ×4 (06:53→22:26)
[2021-08-22] MEDS: methylPREDNISolone SOD SUCC 40 MG/ML VL IV SCH ×2 (06:54→14:42)
[2021-08-22] MEDS: ACCU-CHEK COMFORT CURVE STRIP VI SCH ×4 (06:55→22:26)
[2021-08-22] MEDS ORDERED: HEPARIN SODIUM (PORCINE) 5000 UNITS/ML 1ML VIAL SC SCH (10:00)
[2021-08-22] MEDS: FUROSEMIDE 20 MG/2 ML VIAL IV SCH (10:34)
[2021-08-22] MEDS: FAMOTIDINE (10MG/ML) 2ML VL IV SCH (10:35)
[2021-08-22] MEDS ORDERED: NOREPINEPHRINE 8 MG/250ML KIT 250 ML IV ONE (12:22)
[2021-08-22] MEDS ORDERED: IPRATROPIUM BROM 0.5 MG/2.5ML INH SOL NEB PRN (16:15)
[2021-08-22] MEDS ORDERED: ALBUTEROL SULF 2.5 MG/0.5ML(0.5%) NEB SOLN NEB PRN (16:15)
[2021-08-22] MEDS ORDERED: WARFARIN SODIUM 5 MG TAB PO ONE (17:00)
[2021-08-22] MEDS: ALPRAZolam 0.25 MG TAB PO PRN (20:59)
[2021-08-23 03:38] VITALS: BP 112/65
[2021-08-23] MEDS: SODIUM CHLOR 0.9% PF (SALINE LOCK) 10ML VIAL/SYR IV SCH ×3 (06:04→21:53)
[2021-08-23] MEDS: InsuLIN REG 1unit/0.01ml Soln (100units/ml) SC SCH ×4 (06:36→21:59)
[2021-08-23] MEDS: ACCU-CHEK COMFORT CURVE STRIP VI SCH ×4 (06:38→22:02)
[2021-08-23 06:55] LABS: Basophils # (auto) 0 10 ^3/uL (0-0.2); Basophils % (auto) 0.2 % (0.0-2.0); Eosinophils # (auto) 0 10 ^3/uL (0-0.8); Hematocrit 27.4 % (41.0-53.0); Hemoglobin 9.5 g/dL (13.5-17.5); Lymphocytes # (auto) 0.4 10 ^3/uL (0.4-5.4); Lymphocytes % (auto) 3.3 % (10.0-50.0); Mean Corpuscular Hemoglobin 31.1 pg (28.0-32.0); Mean Corpuscular Hgb Conc. 34.5 g/dL (32.0-36.0); Monocytes # (auto) 0.3 10 ^3/uL (0-1.3); Monocytes % (auto) 2.1 % (0.0-12.0); Neutrophils # (auto) 11.7 10 ^3/uL (1.6-8.6); Neutrophils % (auto) 94.4 % (37.0-80.0); Red Blood Cells 3.05 10^6/uL (4.5-5.90); Red Cell Distribution Width 13.8 % (11.8-14.3); White Blood Cell 12.4 10^3/uL (4.4-10.8)
[2021-08-23 07:10] LABS: INR 1.4 (0.9-1.15)
[2021-08-23 07:17] LABS: Albumin 2.7 g/dL (3.4-5.0); Calcium 8.6 mg/dL (8.5-10.1); Magnesium 2.2 mg/dL (1.6-2.6); Potassium 3.8 mmol/L (3.5-5.1)
[2021-08-23 07:20] LABS: Bilirubin, Total 0.4 mg/dL (0.2-1.0)
[2021-08-23] MEDS: CHOLECALCIFEROL (VITD3) 2,000 UNIT CAP/TAB PO SCH (10:56)
[2021-08-23] MEDS: FAMOTIDINE (10MG/ML) 2ML VL IV SCH (10:56)
[2021-08-23] MEDS: FUROSEMIDE 20 MG/2 ML VIAL IV SCH (10:57)
[2021-08-23 11:25] VITALS: BP 116/69
[2021-08-23 13:26] VITALS: BP 116/69
[2021-08-23] MEDS ORDERED: levoFLOXacin 750MG 150 ML IV ONE (14:15)
[2021-08-23 14:26] LABS: % Iron Saturation 14.9 % (20-55)
[2021-08-23 16:37] VITALS: BP 113/75
[2021-08-23] MEDS ORDERED: WARFARIN SODIUM 5 MG TAB PO ONE (17:00)
[2021-08-23] MEDS: HYDROcodone-ACET 5/325MG TAB PO PRN (21:46)
[2021-08-23] MEDS: ALPRAZolam 0.25 MG TAB PO PRN (21:47)
[2021-08-23 21:55] VITALS: BP 107/71
[2021-08-23] MEDS: INSULIN LANTUS (GLARGINE) 1 /0.01ml (100units/ml) SC SCH (22:01)
[2021-08-24 05:00] VITALS: BP 99/62
[2021-08-24] MEDS: InsuLIN REG 1unit/0.01ml Soln (100units/ml) SC SCH ×4 (06:02→21:30)
[2021-08-24] MEDS: SODIUM CHLOR 0.9% PF (SALINE LOCK) 10ML VIAL/SYR IV SCH ×3 (06:02→21:28)
[2021-08-24] MEDS: ACCU-CHEK COMFORT CURVE STRIP VI SCH ×4 (06:03→21:31)
[2021-08-24 06:24] LABS: Basophils # (auto) 0 10 ^3/uL (0-0.2); Basophils % (auto) 0.2 % (0.0-2.0); Eosinophils # (auto) 0 10 ^3/uL (0-0.8); Eosinophils % (auto) 0.5 % (0.0-7.0); Hematocrit 27.4 % (41.0-53.0); Hemoglobin 9.6 g/dL (13.5-17.5); Lymphocytes # (auto) 0.8 10 ^3/uL (0.4-5.4); Lymphocytes % (auto) 11.9 % (10.0-50.0); Mean Corpuscular Hemoglobin 31.8 pg (28.0-32.0); Mean Corpuscular Volume 90.7 fL (80.0-100.0); Monocytes # (auto) 0.5 10 ^3/uL (0-1.3); Monocytes % (auto) 7.6 % (0.0-12.0); Neutrophils # (auto) 5.5 10 ^3/uL (1.6-8.6); Neutrophils % (auto) 79.8 % (37.0-80.0); Red Blood Cells 3.03 10^6/uL (4.5-5.90); Red Cell Distribution Width 13.6 % (11.8-14.3); White Blood Cell 6.9 10^3/uL (4.4-10.8)
[2021-08-24 06:30] LABS: BUN/Creatinine Ratio 30.4; Calcium 8.6 mg/dL (8.5-10.1); Potassium 3.6 mmol/L (3.5-5.1)
[2021-08-24 06:34] LABS: INR 1.69 (0.9-1.15)
[2021-08-24 08:00] VITALS: BP 104/63
[2021-08-24 08:54] VITALS: BP 104/63
[2021-08-24] MEDS: CHOLECALCIFEROL (VITD3) 2,000 UNIT CAP/TAB PO SCH (09:20)
[2021-08-24] MEDS: FAMOTIDINE (10MG/ML) 2ML VL IV SCH (09:20)
[2021-08-24] MEDS: levoFLOXacin 750MG 150 ML IV SCH (09:21)
[2021-08-24 13:07] VITALS: BP 98/59
[2021-08-24] MEDS ORDERED: WARFARIN SODIUM 5 MG TAB PO ONE (17:00)
[2021-08-24] MEDS: FERROUS SULFATE 325mg EC TAB PO SCH (17:31)
[2021-08-24 20:00] VITALS: BP 104/63
[2021-08-24] MEDS: CARVEDILOL 3.125 MG TAB PO SCH (21:29)
[2021-08-24] MEDS: INSULIN LANTUS (GLARGINE) 1 /0.01ml (100units/ml) SC SCH (21:30)
[2021-08-24] MEDS: SACUBITRIL-VALSARTAN 24mg/26mg TAB PO SCH (21:30)
[2021-08-24] MEDS: HYDROcodone-ACET 5/325MG TAB PO PRN (21:45)
[2021-08-24] MEDS: ALPRAZolam 0.25 MG TAB PO PRN (21:45)
[2021-08-24 22:00] VITALS: BP 104/70
[2021-08-25] VITALS (9 sets, daily range): BP systolic 94–131; BP diastolic 56–70
[2021-08-25 05:54] LABS: Hemoglobin 9.6 g/dL (13.5-17.5)
[2021-08-25 06:07] LABS: INR 1.93 (0.9-1.15)
[2021-08-25] MEDS: SODIUM CHLOR 0.9% PF (SALINE LOCK) 10ML VIAL/SYR IV SCH ×3 (06:32→21:28)
[2021-08-25] MEDS: InsuLIN REG 1unit/0.01ml Soln (100units/ml) SC SCH ×4 (06:35→22:07)
[2021-08-25] MEDS: ACCU-CHEK COMFORT CURVE STRIP VI SCH ×4 (06:37→22:09)
[2021-08-25] MEDS: levoFLOXacin 750MG 150 ML IV SCH (09:06)
[2021-08-25] MEDS: FERROUS SULFATE 325mg EC TAB PO SCH ×2 (09:07→12:41)
[2021-08-25] MEDS: CARVEDILOL 3.125 MG TAB PO SCH ×2 (09:07→21:30)
[2021-08-25] MEDS: CHOLECALCIFEROL (VITD3) 2,000 UNIT CAP/TAB PO SCH (09:07)
[2021-08-25] MEDS: SACUBITRIL-VALSARTAN 24mg/26mg TAB PO SCH ×2 (09:08→21:30)
[2021-08-25] MEDS: FAMOTIDINE (10MG/ML) 2ML VL IV SCH (09:09)
[2021-08-25] MEDS ORDERED: SODIUM FERR GLUC 62.5MG/5ML 125 MG in SODIUM CHL 0.9% 100 ML IV ONE (14:45)
[2021-08-25] MEDS ORDERED: WARFARIN SODIUM 5 MG TAB PO ONE (17:00)
[2021-08-25] MEDS ORDERED: INSULIN LANTUS (GLARGINE) 1 /0.01ml (100units/ml) SC SCH (22:00)
[2021-08-26 05:00] VITALS: BP 113/73
[2021-08-26] MEDS: SODIUM CHLOR 0.9% PF (SALINE LOCK) 10ML VIAL/SYR IV SCH ×2 (05:23→14:00)
[2021-08-26] MEDS: InsuLIN REG 1unit/0.01ml Soln (100units/ml) SC SCH ×2 (05:55→11:30)
[2021-08-26] MEDS: ACCU-CHEK COMFORT CURVE STRIP VI SCH ×2 (05:56→12:18)
[2021-08-26 06:34] LABS: INR 1.84 (0.9-1.15)
[2021-08-26 07:35] VITALS: BP 114/69
[2021-08-26 09:00] VITALS: BP 114/69
[2021-08-26] MEDS: CHOLECALCIFEROL (VITD3) 2,000 UNIT CAP/TAB PO SCH (10:44)
[2021-08-26] MEDS: levoFLOXacin 750MG 150 ML IV SCH (10:44)
[2021-08-26] MEDS: FAMOTIDINE (10MG/ML) 2ML VL IV SCH (10:45)
[2021-08-26] MEDS: CARVEDILOL 3.125 MG TAB PO SCH (10:45)
[2021-08-26] MEDS: SACUBITRIL-VALSARTAN 24mg/26mg TAB PO SCH (10:45)
[2021-08-26] MEDS ORDERED: SODIUM FERR GLUC 62.5MG/5ML 125 MG in SODIUM CHL 0.9% 100 ML IV SCH (12:00)
[2021-08-26] MEDS ORDERED: FER325T PO (12:38)
[2021-08-26] MEDS ORDERED: LEVO750T8 PO (12:38)
[2021-08-26] MEDS ORDERED: ALBUAER3 IN (12:38)
[2021-08-26] MEDS ORDERED: CAR3125T PO (12:38)
[2021-08-26] MEDS ORDERED: SACU1TAB PO (12:38)
[2021-08-26 13:00] VITALS: BP 103/68
[2021-08-26 14:35] VITALS: BP 103/68
== END 2021-08-26 15:23 | disposition home health service (06) | DRG 193 ==
LOC: ER 22:20 → EDBD 22:20 → TELE 08-22 03:19 → TELE-WESTW 08-23 11:31
PROVIDERS: ADMIT Nurse Practitioner Family; ATTEND Internal Medicine
DX: J18.9 Pneumonia, unspecified organism (principal); I50.43 Acute on chronic combined systolic (congestive) and diastolic (congestive) heart failure; J96.00 Acute respiratory failure, unspecified whether with hypoxia or hypercapnia; N17.0 Acute kidney failure with tubular necrosis; J05.10 Acute epiglottitis without obstruction; D68.69 Other thrombophilia; I42.0 Dilated cardiomyopathy; I11.0 Hypertensive heart disease with heart failure; D64.9 Anemia, unspecified; E11.9 Type 2 diabetes mellitus without complications; E66.9 Obesity, unspecified; E88.09 Other disorders of plasma-protein metabolism, not elsewhere classified; I25.10 Atherosclerotic heart disease of native coronary artery without angina pectoris; I48.91 Unspecified atrial fibrillation; Z82.49 Family history of ischemic heart disease and other diseases of the circulatory system; Z95.810 Presence of automatic (implantable) cardiac defibrillator; Z68.38 Body mass index [BMI] 38.0-38.9, adult; Z88.0 Allergy status to penicillin; Z88.8 Allergy status to other drugs, medicaments and biological substances; Z79.84 Long term (current) use of oral hypoglycemic drugs
CPT/HCPCS: 36415; 36600; 71045; 80048; 80053; 81001; 82270; 82805; 82962; 83540; 83550; 83605; 83735; 83880; 84484; 85014; 85018; 85025; 85379; 85610; 85730; 86850; 86900; 86901; 93005; 96365; 96375; 99291; G0378; J0696; J1815; J1956; J3490; P9047

== ENCOUNTER → 2022-01-09 | Outpatient (CLI) | payer MEDICARE ==
[~2022-01-09] MED LIST changes: +ALBUAER3 IN; -AZIT250T9 PO; -CARV25TA55 PO; +LEVO750T8 PO; -LISI-716 PO; +SACU1TAB PO; -SACU1TAB7 PO; -SPIR25TA8 PO
[2022-01-09 12:59] LABS: INR 1.7 (0.9-1.15); Partial Thromboplastin Time 32.3 sec (24.6-33.4)
[2022-01-09 13:01] LABS: Basophils # (auto) 0 10 ^3/uL (0-0.2); Basophils % (auto) 0.9 % (0.0-2.0); Eosinophils # (auto) 0.3 10 ^3/uL (0-0.8); Eosinophils % (auto) 5.2 % (0.0-7.0); Hematocrit 36.6 % (41.0-53.0); Hemoglobin 11.9 g/dL (13.5-17.5); Lymphocytes # (auto) 1.1 10 ^3/uL (0.4-5.4); Lymphocytes % (auto) 21.8 % (10.0-50.0); Mean Corpuscular Hemoglobin 29.9 pg (28.0-32.0); Mean Corpuscular Hgb Conc. 32.5 g/dL (32.0-36.0); Mean Corpuscular Volume 92.2 fL (80.0-100.0); Monocytes # (auto) 0.5 10 ^3/uL (0-1.3); Monocytes % (auto) 9.5 % (0.0-12.0); Neutrophils # (auto) 3.1 10 ^3/uL (1.6-8.6); Neutrophils % (auto) 62.6 % (37.0-80.0); Red Blood Cells 3.98 10^6/uL (4.5-5.90); Red Cell Distribution Width 14.2 % (11.8-14.3)
[2022-01-09 13:09] LABS: Potassium 4.2 mmol/L (3.5-5.1)
[2022-01-09 13:16] LABS: Free T4 (Free Thyroxine) 1.17 ng/dL (0.89-1.76)
[2022-01-09 13:17] LABS: Albumin 3.4 g/dL (3.4-5.0); BUN/Creatinine Ratio 24.5; Bilirubin, Total 0.5 mg/dL (0.2-1.0); Calcium 8.9 mg/dL (8.5-10.1); Prostate Specific Antigen 0.07 ng/mL (0.0-4.0); Total Protein 6.5 g/dL (6.4-8.2)
== END | disposition home or self-care (01) ==
LOC: LAB 10:14
PROVIDERS: ATTEND Internal Medicine Cardiovascular Disease
DX: C61 Malignant neoplasm of prostate (principal); D51.3 Other dietary vitamin B12 deficiency anemia; D64.9 Anemia, unspecified; E11.9 Type 2 diabetes mellitus without complications; I10 Essential (primary) hypertension; E55.9 Vitamin D deficiency, unspecified; R00.2 Palpitations; R53.1 Weakness; R30.0 Dysuria; R79.1 Abnormal coagulation profile
CPT/HCPCS: 36415; 80053; 80061; 82607; 83036; 84153; 84439; 84443; 85025; 85610; 85730

== ENCOUNTER → 2022-01-23 | Outpatient (CLI) | payer MEDICARE | END | disposition home or self-care (01) | LOC: Rad HDHVI 08:43 | PROVIDERS: ATTEND Internal Medicine Cardiovascular Disease | DX: R07.89 Other chest pain (principal); E78.9 Disorder of lipoprotein metabolism, unspecified | CPT/HCPCS: 93925 ==

== ENCOUNTER → 2022-01-26 | Outpatient (CLI) | payer MEDICARE | END | disposition home or self-care (01) | LOC: Rad HDHVI 09:52 | PROVIDERS: ATTEND Internal Medicine Cardiovascular Disease | DX: I08.3 Combined rheumatic disorders of mitral, aortic and tricuspid valves (principal); R06.02 Shortness of breath; R00.2 Palpitations | CPT/HCPCS: 93306 ==

== ENCOUNTER → 2022-05-01 | Outpatient (CLI) | payer MEDICARE ==
[2022-05-01 12:01] LABS: INR 0.98 (0.9-1.15); Partial Thromboplastin Time 25.4 sec (24.6-33.4)
== END | disposition home or self-care (01) ==
LOC: LAB 09:46
PROVIDERS: ATTEND Internal Medicine Cardiovascular Disease
DX: R79.1 Abnormal coagulation profile (principal)
CPT/HCPCS: 36415; 85610; 85730

== ENCOUNTER → 2022-05-15 | Outpatient (CLI) | payer MEDICARE ==
[~2022-05-15] VITALS: Ht 177.8 cm; Wt 105.7 kg
[~2022-05-15] MED LIST changes: +ADENOSINE 89 MG in GIVE UN-DILUTED 0 ML IV ONE; +ADENOSINE 90 MG/30 ML INJ IV ONE
== END | disposition home or self-care (01) ==
LOC: Rad HDHVI 08:11
PROVIDERS: ATTEND Internal Medicine Cardiovascular Disease
DX: I11.0 Hypertensive heart disease with heart failure (principal); I50.23 Acute on chronic systolic (congestive) heart failure; I34.0 Nonrheumatic mitral (valve) insufficiency; I25.5 Ischemic cardiomyopathy; E11.9 Type 2 diabetes mellitus without complications; E78.5 Hyperlipidemia, unspecified; E78.00 Pure hypercholesterolemia, unspecified; F17.210 Nicotine dependence, cigarettes, uncomplicated; Z82.49 Family history of ischemic heart disease and other diseases of the circulatory system; Z95.0 Presence of cardiac pacemaker
CPT/HCPCS: 78452; 93005; 96374; 96375; A9500; J0153

== ENCOUNTER → 2022-08-07 | Outpatient (CLI) | payer MEDICARE ==
[~2022-08-07] MED LIST changes: -ADENOSINE 89 MG in GIVE UN-DILUTED 0 ML IV ONE; -ADENOSINE 90 MG/30 ML INJ IV ONE; +CARB-80 PO; +CARV3.1240 PO; +FERR-20 PO; +FLUO1TAB12 PO; +GLUC1TES36 VI; +GLUCTES VI; +HYDR-4798 PO; +PRIM50TA5 PO
[2022-08-07 10:03] VITALS: BP 103/67
[2022-08-07 10:26] VITALS: BP 109/62
== END | disposition home or self-care (01) ==
LOC: Rad HDHVI 09:57
PROVIDERS: ATTEND Internal Medicine Cardiovascular Disease
DX: Z01.818 Encounter for other preprocedural examination (principal); I50.43 Acute on chronic combined systolic (congestive) and diastolic (congestive) heart failure; I25.5 Ischemic cardiomyopathy; R06.02 Shortness of breath; Z95.0 Presence of cardiac pacemaker
CPT/HCPCS: 71046; 93005; G0463

== ENCOUNTER 2022-08-10 07:16 | Day surgery (SDC) | payer MEDICARE ==
[2022-08-07 11:57] LABS: Basophils # (auto) 0.1 10 ^3/uL (0-0.2); Basophils % (auto) 0.7 % (0.0-2.0); Eosinophils # (auto) 0.3 10 ^3/uL (0-0.8); Eosinophils % (auto) 4.2 % (0.0-7.0); Hematocrit 37.1 % (41.0-53.0); Hemoglobin 12.3 g/dL (13.5-17.5); Lymphocytes # (auto) 1.3 10 ^3/uL (0.4-5.4); Lymphocytes % (auto) 18.3 % (10.0-50.0); Mean Corpuscular Hemoglobin 31.3 pg (28.0-32.0); Mean Corpuscular Hgb Conc. 33.2 g/dL (32.0-36.0); Mean Corpuscular Volume 94.1 fL (80.0-100.0); Monocytes # (auto) 0.6 10 ^3/uL (0-1.3); Monocytes % (auto) 7.9 % (0.0-12.0); Neutrophils # (auto) 4.9 10 ^3/uL (1.6-8.6); Neutrophils % (auto) 68.9 % (37.0-80.0); Red Blood Cells 3.94 10^6/uL (4.5-5.90); Red Cell Distribution Width 14.1 % (11.8-14.3); White Blood Cell 7.1 10^3/uL (4.4-10.8)
[2022-08-07 12:13] LABS: INR 1.77 (0.9-1.15); Partial Thromboplastin Time 32.8 sec (24.6-33.4)
[2022-08-07 13:25] LABS: BUN/Creatinine Ratio 23.1 (10.0-20.0); Calcium 9.2 mg/dL (8.5-10.1)
[~2022-08-10] VITALS: Ht 177.8 cm; Wt 103.9 kg
[2022-08-10] VITALS (12 sets, daily range): BP systolic 81–105; BP diastolic 56–73
[~2022-08-10 07:16] MED LIST changes: -FLUO10CA15 PO; -GLIP10TA9 PO; -HYDR-4833 PO; -LEVO750T8 PO; -PRIM50TA5 PO
[2022-08-10] MEDS ORDERED: ANGIOMAX 250 MG VIAL IV ONE (10:52)
[2022-08-10] MEDS ORDERED: fentaNYL CITRATE 100 MCG/2 ML VL ONE (10:52)
[2022-08-10] MEDS ORDERED: MIDAZOLAM HCL 2MG/2ML 2ml VIAL (1mg/ml) ONE (10:53)
[2022-08-10] MEDS ORDERED: SODIUM CHL 0.9% 50 ML ONE (10:53)
[2022-08-10] MEDS ORDERED: LIDOCAINE 2%HCL (LOCAL ANESTH.) INJ 20ML MDV ONE (10:58)
[2022-08-10] MEDS ORDERED: IOHEXOL 350 MG/ML 100ML IJ ONE ×2 (10:58→11:22)
[2022-08-10] MEDS ORDERED: CLOPIDOGREL 300 MG TAB ONE (11:34)
[2022-08-10] MEDS ORDERED: APIX2.5T PO (11:46)
[2022-08-10] MEDS ORDERED: CLOP75TA28 PO (11:46)
[2022-08-10] MEDS: SODIUM CHLORIDE 0.9% 500 ML IV ONE ×2 (12:09→12:15)
== END 2022-08-10 14:25 | disposition home or self-care (01) ==
LOC: CATH 07:16
PROVIDERS: ATTEND Internal Medicine Cardiovascular Disease
DX: R07.89 Other chest pain (principal); R94.39 Abnormal result of other cardiovascular function study; E11.40 Type 2 diabetes mellitus with diabetic neuropathy, unspecified; E11.21 Type 2 diabetes mellitus with diabetic nephropathy; I42.9 Cardiomyopathy, unspecified; E66.9 Obesity, unspecified; G47.30 Sleep apnea, unspecified; I11.0 Hypertensive heart disease with heart failure; I50.20 Unspecified systolic (congestive) heart failure; I42.0 Dilated cardiomyopathy; Z79.84 Long term (current) use of oral hypoglycemic drugs
CPT/HCPCS: 36415; 80048; 85025; 85610; 85730; 93458; 93571; C1725; C1769; C1874; C1887; C1894; C9600; J0583; J1644; J2250; J3010; Q9967; 99152; 99153

== ENCOUNTER → 2022-11-21 | Outpatient (CLI) | payer MEDICARE ==
[~2022-11-21] MED LIST changes: +CARB-118 PO; -CARB-80 PO; +CLOP75TA28 PO; -FERR-20 PO; +FERR325T24 PO; -SIMV-13 PO; +SIMV40TA18 PO; -WARF6TAB21 PO
== END | disposition home or self-care (01) ==
LOC: Rad HDHVI 08:52
PROVIDERS: ATTEND Internal Medicine Cardiovascular Disease
DX: I08.3 Combined rheumatic disorders of mitral, aortic and tricuspid valves (principal); I11.0 Hypertensive heart disease with heart failure; I50.43 Acute on chronic combined systolic (congestive) and diastolic (congestive) heart failure
CPT/HCPCS: 93306

== ENCOUNTER 2023-04-02 14:37 | Inpatient (IN) | payer MEDICARE ==
[~2023-04-02] VITALS: Ht 177.8 cm; Wt 95.1 kg
[2023-04-02] MEDS ORDERED: methylPREDNISolone SOD SUCC 125 MG/2 ML VL IV ONE (15:30)
[2023-04-02 15:33] LABS: Basophils # (auto) 0 10 ^3/uL (0-0.2); Basophils % (auto) 0.5 % (0.0-2.0); Eosinophils # (auto) 0.1 10 ^3/uL (0-0.8); Eosinophils % (auto) 1.2 % (0.0-7.0); Hematocrit 41.9 % (41.0-53.0); Hemoglobin 13.8 g/dL (13.5-17.5); Lymphocytes % (auto) 10.8 % (10.0-50.0); Mean Corpuscular Hemoglobin 30.3 pg (28.0-32.0); Mean Corpuscular Volume 92.1 fL (80.0-100.0); Monocytes # (auto) 0.5 10 ^3/uL (0-1.3); Monocytes % (auto) 5.7 % (0.0-12.0); Neutrophils # (auto) 7.5 10 ^3/uL (1.6-8.6); Neutrophils % (auto) 81.8 % (37.0-80.0); Nucleated Red Blood Cells % 0.1 %; Red Blood Cells 4.56 10^6/uL (4.5-5.90); Red Cell Distribution Width 13.7 % (11.8-14.3); White Blood Cell 9.2 10^3/uL (4.4-10.8)
[2023-04-02] MEDS ORDERED: IOHEXOL 350 MG/ML 100ML IJ ONE (15:40)
[2023-04-02 15:42] LABS: Urine Bacteria NONE SEEN /hpf (None Seen); Urine Blood Negative /uL (Negative); Urine Clarity Clear (Clear); Urine Hyaline Cast FEW /lpf (0 - 2); Urine Protein, UAD Negative (Negative); Urine Specific Gravity 1.009 (1.001-1.035); Urine Urobilinogen Normal (Negative); Urine WBC 1 /hpf (0 - 3); Urine pH 6.5 (5.0-8.0)
[2023-04-02 15:48] LABS: Urine Color STRAW (Yellow)
[2023-04-02 15:49] LABS: INR 1.05 (0.9-1.15); Partial Thromboplastin Time 24.2 SEC (24.5-34.5)
[2023-04-02 15:54] LABS: Albumin 4.1 g/dL (3.2-4.8); Alkaline Phosphatase 57 U/L (46-116); Anion Gap 8 (5-15); Aspartate Aminotransferase 16 U/L (13-40); BUN/Creatinine Ratio 16.3 (10.0-20.0); Bilirubin, Total 0.5 mg/dL (0.2-1.0); Blood Urea Nitrogen 17 mg/dL (9-23); Calcium 9.4 mg/dL (8.5-10.1); Carbon Dioxide 27 mmol/L (20-30); Chloride 100 mmol/L (98-107); Glucose 222 mg/dL (74-106); Potassium 4.3 mmol/L (3.5-5.1); Sodium 135 mmol/L (136-145); Total Protein 6.2 g/dL (5.7-8.2)
[2023-04-02 15:57] LABS: Alanine Aminotransferase 9 U/L (7-40)
[2023-04-02 16:37] LABS: COVID19 ANTIGEN SOFIA FIA NEGATIVE (NEGATIVE)
[2023-04-02 16:38] LABS: Rapid Influenza A Negative (Negative); Rapid Influenza B Negative (Negative)
[2023-04-02] MEDS ORDERED: HEPARIN DRIP/D5W 100UNITS/ML 250 ML IV SCH ×3 (17:45→18:45)
[2023-04-02] MEDS ORDERED: HEPARIN SODIUM (PORCINE) 5000 UNITS/ML 1ML VIAL IV ONE ×2 (17:45→18:45)
[2023-04-02 18:00] VITALS: PULSE 125; RESP 16; O2SAT 95
[2023-04-02 18:12] LABS: Basophils # (auto) 0 10 ^3/uL (0-0.2); Basophils % (auto) 0.3 % (0.0-2.0); Eosinophils # (auto) 0.1 10 ^3/uL (0-0.8); Eosinophils % (auto) 0.8 % (0.0-7.0); Hematocrit 39.1 % (41.0-53.0); Hemoglobin 13.1 g/dL (13.5-17.5); Lymphocytes # (auto) 0.4 10 ^3/uL (0.4-5.4); Lymphocytes % (auto) 4.5 % (10.0-50.0); Mean Corpuscular Hemoglobin 30.9 pg (28.0-32.0); Mean Corpuscular Hgb Conc. 33.4 g/dL (32.0-36.0); Mean Corpuscular Volume 92.4 fL (80.0-100.0); Monocytes # (auto) 0.3 10 ^3/uL (0-1.3); Monocytes % (auto) 3.2 % (0.0-12.0); Neutrophils # (auto) 8.7 10 ^3/uL (1.6-8.6); Neutrophils % (auto) 91.2 % (37.0-80.0); Red Blood Cells 4.24 10^6/uL (4.5-5.90); Red Cell Distribution Width 13.6 % (11.8-14.3); White Blood Cell 9.6 10^3/uL (4.4-10.8)
[2023-04-02] MEDS: HEPARIN SODIUM (PORCINE) 5000 UNITS/ML 1ML VIAL IV ONE ×2 (18:24→18:36)
[2023-04-02 18:31] LABS: INR 1.07 (0.9-1.15); Partial Thromboplastin Time 21.4 SEC (24.5-34.5); Prothrombin Time 11.2 sec (9.3-11.8)
[2023-04-02] MEDS ORDERED: NITROGLYCERIN 0.4 MG SL TAB SL PRN (19:30)
[2023-04-02] MEDS ORDERED: FUROSEMIDE 20 MG/2 ML VIAL IV ONE (19:30)
[2023-04-02] MEDS ORDERED: ALBUTEROL SULF 2.5 MG/0.5ML(0.5%) NEB SOLN NEB PRN (19:30)
[2023-04-02] MEDS ORDERED: MORPHINE SULFATE INJ 2 MG/ml SYRG IV PRN (19:30)
[2023-04-02] MEDS ORDERED: DEXTROSE (50%) 50ML SYRG IV PRN (19:30)
[2023-04-02] MEDS ORDERED: ACETAMINOPHEN 325 MG TAB PO PRN (19:30)
[2023-04-02 19:45] VITALS: PULSE 105; RESP 22; O2SAT 94
[2023-04-02] MEDS ORDERED: HYDROcodone-ACET 10/325MG TAB PO PRN (19:45)
[2023-04-02 19:51] VITALS: BP 147/111; PULSE 125; RESP 16; TEMP 97.7; O2SAT 95
[2023-04-02 20:24] LABS: Triglycerides 73 mg/dL (< 150)
[2023-04-02 20:25] LABS: LDL Cholesterol 83 mg/dL (< 100)
[2023-04-02 20:26] LABS: Cholesterol 137 mg/dL (< 200); HDL Cholesterol 44 mg/dL (40-59)
[2023-04-02] MEDS: CARVEDILOL 3.125 MG TAB PO SCH (22:00)
[2023-04-02 22:30] VITALS: PULSE 92; RESP 20; O2SAT 94
[2023-04-02] MEDS: IPRATROPIUM BROM 0.5 MG/2.5ML INH SOL NEB SCH (22:30)
[2023-04-02] MEDS: ALBUTEROL SULF 2.5 MG/0.5ML(0.5%) NEB SOLN NEB SCH (22:30)
[2023-04-02 22:38] VITALS: PULSE 88; RESP 20; O2SAT 96
[2023-04-02] MEDS: ACCU-CHEK COMFORT CURVE STRIP VI SCH (22:47)
[2023-04-02] MEDS: SACUBITRIL-VALSARTAN 24mg/26mg TAB PO SCH (22:54)
[2023-04-02] MEDS: CARBIDOPA W LEVODOPA 25/100mg TABLET PO SCH (22:55)
[2023-04-02] MEDS: InsuLIN REG 1unit/0.01ml Soln (100units/ml) SC SCH (22:59)
[2023-04-03] VITALS (12 sets, daily range): BP systolic 121; BP diastolic 76; PULSE 80–99; RESP 17–20; O2SAT 92–100
[2023-04-03 01:07] LABS: Basophils # (auto) 0 10 ^3/uL (0-0.2); Basophils % (auto) 0.1 % (0.0-2.0); Eosinophils # (auto) 0 10 ^3/uL (0-0.8); Hematocrit 37.1 % (41.0-53.0); Lymphocytes # (auto) 0.3 10 ^3/uL (0.4-5.4); Lymphocytes % (auto) 5.7 % (10.0-50.0); Mean Corpuscular Hemoglobin 30.2 pg (28.0-32.0); Mean Corpuscular Hgb Conc. 32.2 g/dL (32.0-36.0); Mean Corpuscular Volume 93.7 fL (80.0-100.0); Monocytes # (auto) 0.1 10 ^3/uL (0-1.3); Monocytes % (auto) 1.5 % (0.0-12.0); Neutrophils # (auto) 5.7 10 ^3/uL (1.6-8.6); Neutrophils % (auto) 92.7 % (37.0-80.0); Red Blood Cells 3.96 10^6/uL (4.5-5.90); Red Cell Distribution Width 13.9 % (11.8-14.3); White Blood Cell 6.1 10^3/uL (4.4-10.8)
[2023-04-03] MEDS: IPRATROPIUM BROM 0.5 MG/2.5ML INH SOL NEB SCH ×6 (02:09→23:07)
[2023-04-03] MEDS: ALBUTEROL SULF 2.5 MG/0.5ML(0.5%) NEB SOLN NEB SCH ×6 (02:09→23:07)
[2023-04-03] MEDS ORDERED: HEPARIN DRIP/D5W 100UNITS/ML 250 ML IV SCH ×3 (02:30→18:45)
[2023-04-03 06:17] LABS: Basophils # (auto) 0 10 ^3/uL (0-0.2); Basophils % (auto) 0.1 % (0.0-2.0); Eosinophils # (auto) 0 10 ^3/uL (0-0.8); Hematocrit 36.2 % (41.0-53.0); Lymphocytes # (auto) 0.3 10 ^3/uL (0.4-5.4); Lymphocytes % (auto) 4.8 % (10.0-50.0); Mean Corpuscular Hemoglobin 30.4 pg (28.0-32.0); Mean Corpuscular Hgb Conc. 33.1 g/dL (32.0-36.0); Monocytes # (auto) 0.1 10 ^3/uL (0-1.3); Neutrophils # (auto) 6.1 10 ^3/uL (1.6-8.6); Neutrophils % (auto) 93.1 % (37.0-80.0); Red Blood Cells 3.93 10^6/uL (4.5-5.90); Red Cell Distribution Width 13.9 % (11.8-14.3); White Blood Cell 6.6 10^3/uL (4.4-10.8)
[2023-04-03] MEDS: ACCU-CHEK COMFORT CURVE STRIP VI SCH ×4 (06:27→22:55)
[2023-04-03 06:39] LABS: Albumin 3.6 g/dL (3.2-4.8); Alkaline Phosphatase 48 U/L (46-116); Anion Gap 13 (5-15); Aspartate Aminotransferase 16 U/L (13-40); BUN/Creatinine Ratio 16.7 (10.0-20.0); Bilirubin, Total 0.4 mg/dL (0.2-1.0); Blood Urea Nitrogen 17 mg/dL (9-23); Calcium 8.9 mg/dL (8.5-10.1); Carbon Dioxide 20 mmol/L (20-30); Chloride 99 mmol/L (98-107); Potassium 4.2 mmol/L (3.5-5.1); Sodium 132 mmol/L (136-145)
[2023-04-03 06:40] LABS: Total Protein 5.7 g/dL (5.7-8.2)
[2023-04-03 06:45] LABS: Alanine Aminotransferase < 9 U/L (7-40); Glucose 427 mg/dL (74-106)
[2023-04-03] MEDS: InsuLIN REG 1unit/0.01ml Soln (100units/ml) SC SCH ×4 (06:47→22:54)
[2023-04-03 08:44] LABS: Basophils # (auto) 0 10 ^3/uL (0-0.2); Basophils % (auto) 0.1 % (0.0-2.0); Eosinophils # (auto) 0 10 ^3/uL (0-0.8); Eosinophils % (auto) 0.1 % (0.0-7.0); Hematocrit 36.4 % (41.0-53.0); Lymphocytes # (auto) 0.3 10 ^3/uL (0.4-5.4); Lymphocytes % (auto) 4.7 % (10.0-50.0); Mean Corpuscular Hemoglobin 30.3 pg (28.0-32.0); Mean Corpuscular Volume 91.8 fL (80.0-100.0); Monocytes # (auto) 0.2 10 ^3/uL (0-1.3); Monocytes % (auto) 2.8 % (0.0-12.0); Neutrophils % (auto) 92.3 % (37.0-80.0); Red Blood Cells 3.96 10^6/uL (4.5-5.90); Red Cell Distribution Width 13.7 % (11.8-14.3); White Blood Cell 6.5 10^3/uL (4.4-10.8)
[2023-04-03 09:21] LABS: INR 1.1 (0.9-1.15); Prothrombin Time 11.5 sec (9.3-11.8)
[2023-04-03] MEDS: FERROUS SULFATE 325mg EC TAB PO SCH ×2 (09:35→18:10)
[2023-04-03 09:37] LABS: Partial Thromboplastin Time 121.6 SEC (24.5-34.5)
[2023-04-03] MEDS ORDERED: COENZYME Q10 30 MG PO SCH (10:00)
[2023-04-03] MEDS: VENLAFAXINE HCL 37.5mg XR cap PO SCH (10:00)
[2023-04-03] MEDS ORDERED: FUROSEMIDE 20 MG/2 ML VIAL IV SCH (10:00)
[2023-04-03] MEDS ORDERED: CLOPIDOGREL BISULFATE 75 MG TAB PO SCH (10:00)
[2023-04-03] MEDS: CARBIDOPA W LEVODOPA 25/100mg TABLET PO SCH ×2 (11:11→22:39)
[2023-04-03] MEDS: SACUBITRIL-VALSARTAN 24mg/26mg TAB PO SCH ×2 (11:11→22:40)
[2023-04-03] MEDS: ATORVASTATIN 20 MG TAB PO SCH (11:11)
[2023-04-03] MEDS: CHOLECALCIFEROL (VITD3) 2,000 UNIT CAP/TAB PO SCH (11:11)
[2023-04-03] MEDS: FLUoxetine HCL 10 MG CAP PO SCH (11:12)
[2023-04-03] MEDS: CARVEDILOL 3.125 MG TAB PO SCH ×2 (11:12→22:46)
[2023-04-03] MEDS ORDERED: DEXTROSE (50%) 50ML SYRG IV PRN (12:15)
[2023-04-03] MEDS ORDERED: PANTOPRAZOLE 40 MG TAB PO ONE (13:30)
[2023-04-03 18:21] LABS: INR 1.07 (0.9-1.15); Partial Thromboplastin Time 47.2 SEC (24.5-34.5); Prothrombin Time 11.2 sec (9.3-11.8)
[2023-04-03] MEDS: FUROSEMIDE 20 MG/2 ML VIAL IV SCH (22:39)
[2023-04-03] MEDS: INSULIN LANTUS (GLARGINE) 1 /0.01ml (100units/ml) SC SCH (22:54)
[2023-04-04] VITALS (20 sets, daily range): BP systolic 95–98; BP diastolic 60–63; PULSE 57–108; RESP 18–20; TEMP 97.1–98.2; O2SAT 92–99
[2023-04-04] MEDS: ALBUTEROL SULF 2.5 MG/0.5ML(0.5%) NEB SOLN NEB SCH ×7 (02:00→22:20)
[2023-04-04 02:09] LABS: INR 1.09 (0.9-1.15); Prothrombin Time 11.4 sec (9.3-11.8)
[2023-04-04] MEDS: IPRATROPIUM BROM 0.5 MG/2.5ML INH SOL NEB SCH ×6 (02:13→22:20)
[2023-04-04] MEDS ORDERED: HEPARIN DRIP/D5W 100UNITS/ML 250 ML IV SCH (02:30)
[2023-04-04] MEDS: ACCU-CHEK COMFORT CURVE STRIP VI SCH ×4 (06:04→22:29)
[2023-04-04] MEDS: InsuLIN REG 1unit/0.01ml Soln (100units/ml) SC SCH ×4 (06:07→22:29)
[2023-04-04 07:13] LABS: Basophils # (auto) 0 10 ^3/uL (0-0.2); Basophils % (auto) 0.2 % (0.0-2.0); Eosinophils # (auto) 0 10 ^3/uL (0-0.8); Eosinophils % (auto) 0.6 % (0.0-7.0); Hematocrit 37.3 % (41.0-53.0); Hemoglobin 12.3 g/dL (13.5-17.5); Mean Corpuscular Volume 91.1 fL (80.0-100.0); Monocytes # (auto) 0.5 10 ^3/uL (0-1.3); Monocytes % (auto) 6.2 % (0.0-12.0); Neutrophils # (auto) 6.9 10 ^3/uL (1.6-8.6); Red Cell Distribution Width 13.5 % (11.8-14.3); White Blood Cell 8.5 10^3/uL (4.4-10.8)
[2023-04-04 07:31] LABS: Anion Gap 7 (5-15); Carbon Dioxide 29 mmol/L (20-30); Chloride 100 mmol/L (98-107); Potassium 4.4 mmol/L (3.5-5.1); Sodium 136 mmol/L (136-145)
[2023-04-04 07:33] LABS: Calcium 8.9 mg/dL (8.5-10.1)
[2023-04-04 07:38] LABS: BUN/Creatinine Ratio 18.1 (10.0-20.0); Blood Urea Nitrogen 17 mg/dL (9-23)
[2023-04-04 07:53] LABS: Glucose 162 mg/dL (74-106)
[2023-04-04 09:35] LABS: Basophils # (auto) 0 10 ^3/uL (0-0.2); Basophils % (auto) 0.2 % (0.0-2.0); Eosinophils # (auto) 0.1 10 ^3/uL (0-0.8); Eosinophils % (auto) 0.6 % (0.0-7.0); Hematocrit 38.3 % (41.0-53.0); Hemoglobin 12.7 g/dL (13.5-17.5); Lymphocytes # (auto) 1.2 10 ^3/uL (0.4-5.4); Lymphocytes % (auto) 13.2 % (10.0-50.0); Mean Corpuscular Hemoglobin 30.4 pg (28.0-32.0); Mean Corpuscular Hgb Conc. 33.2 g/dL (32.0-36.0); Mean Corpuscular Volume 91.7 fL (80.0-100.0); Monocytes # (auto) 0.5 10 ^3/uL (0-1.3); Nucleated Red Blood Cells % 0.1 %; Red Blood Cells 4.18 10^6/uL (4.5-5.90); Red Cell Distribution Width 13.7 % (11.8-14.3); White Blood Cell 8.8 10^3/uL (4.4-10.8)
[2023-04-04] MEDS: FUROSEMIDE 20 MG/2 ML VIAL IV SCH ×2 (09:41→22:08)
[2023-04-04] MEDS: CARBIDOPA W LEVODOPA 25/100mg TABLET PO SCH ×2 (09:42→22:07)
[2023-04-04] MEDS: CHOLECALCIFEROL (VITD3) 2,000 UNIT CAP/TAB PO SCH (09:42)
[2023-04-04] MEDS: ATORVASTATIN 20 MG TAB PO SCH (09:43)
[2023-04-04] MEDS: FLUoxetine HCL 10 MG CAP PO SCH (09:43)
[2023-04-04] MEDS: SACUBITRIL-VALSARTAN 24mg/26mg TAB PO SCH ×2 (09:43→22:05)
[2023-04-04] MEDS: FERROUS SULFATE 325mg EC TAB PO SCH ×2 (09:43→17:43)
[2023-04-04] MEDS: PANTOPRAZOLE 40 MG TAB PO SCH (09:44)
[2023-04-04] MEDS: VENLAFAXINE HCL 37.5mg XR cap PO SCH (09:44)
[2023-04-04 09:47] LABS: INR 1.08 (0.9-1.15); Partial Thromboplastin Time 31.9 SEC (24.5-34.5); Prothrombin Time 11.3 sec (9.3-11.8)
[2023-04-04] MEDS: CARVEDILOL 3.125 MG TAB PO SCH ×2 (09:53→22:11)
[2023-04-04] MEDS: INSULIN LANTUS (GLARGINE) 1 /0.01ml (100units/ml) SC SCH (22:00)
[2023-04-04] MEDS: APIXABAN 5 MG TAB PO SCH (22:07)
[2023-04-05] VITALS (20 sets, daily range): BP systolic 93–106; BP diastolic 58–74; PULSE 89–133; RESP 16–20; TEMP 97.4–98.8; O2SAT 87–99
[2023-04-05] MEDS: ALBUTEROL SULF 2.5 MG/0.5ML(0.5%) NEB SOLN NEB SCH ×6 (02:14→22:11)
[2023-04-05] MEDS: IPRATROPIUM BROM 0.5 MG/2.5ML INH SOL NEB SCH ×6 (02:15→22:11)
[2023-04-05 06:24] LABS: Chloride 100 mmol/L (98-107); Potassium 3.7 mmol/L (3.5-5.1); Sodium 137 mmol/L (136-145)
[2023-04-05 06:25] LABS: Anion Gap 9 (5-15); Calcium 8.8 mg/dL (8.5-10.1); Carbon Dioxide 28 mmol/L (20-30)
[2023-04-05 06:30] LABS: Blood Urea Nitrogen 15 mg/dL (9-23); Glucose 153 mg/dL (74-106)
[2023-04-05] MEDS: ACCU-CHEK COMFORT CURVE STRIP VI SCH ×4 (06:32→22:10)
[2023-04-05] MEDS: InsuLIN REG 1unit/0.01ml Soln (100units/ml) SC SCH ×4 (06:36→22:09)
[2023-04-05] MEDS: SACUBITRIL-VALSARTAN 24mg/26mg TAB PO SCH ×2 (09:54→21:55)
[2023-04-05] MEDS: VENLAFAXINE HCL 37.5mg XR cap PO SCH (09:54)
[2023-04-05] MEDS: ATORVASTATIN 20 MG TAB PO SCH (09:55)
[2023-04-05] MEDS: CARBIDOPA W LEVODOPA 25/100mg TABLET PO SCH ×2 (09:55→21:55)
[2023-04-05] MEDS: PANTOPRAZOLE 40 MG TAB PO SCH (09:55)
[2023-04-05] MEDS: FERROUS SULFATE 325mg EC TAB PO SCH ×2 (09:55→21:55)
[2023-04-05] MEDS: CHOLECALCIFEROL (VITD3) 2,000 UNIT CAP/TAB PO SCH (09:55)
[2023-04-05] MEDS: APIXABAN 5 MG TAB PO SCH ×2 (09:55→21:55)
[2023-04-05] MEDS: FLUoxetine HCL 10 MG CAP PO SCH (09:55)
[2023-04-05] MEDS: FUROSEMIDE 20 MG/2 ML VIAL IV SCH ×2 (09:56→22:06)
[2023-04-05] MEDS: CARVEDILOL 3.125 MG TAB PO SCH ×2 (09:56→22:00)
[2023-04-05 12:06] LABS: Base Excess 2.4 mmol/L (-2.0-2.0)
[2023-04-05] MEDS: INSULIN LANTUS (GLARGINE) 1 /0.01ml (100units/ml) SC SCH (22:11)
[2023-04-06] VITALS (13 sets, daily range): BP systolic 90–104; BP diastolic 60–70; PULSE 91–116; RESP 16–20; TEMP 98.3–98.5; O2SAT 92–100
[2023-04-06] MEDS: IPRATROPIUM BROM 0.5 MG/2.5ML INH SOL NEB SCH ×2 (02:23→06:21)
[2023-04-06] MEDS: ALBUTEROL SULF 2.5 MG/0.5ML(0.5%) NEB SOLN NEB SCH ×2 (02:23→06:21)
[2023-04-06] MEDS: InsuLIN REG 1unit/0.01ml Soln (100units/ml) SC SCH ×2 (06:29→12:01)
[2023-04-06] MEDS: ACCU-CHEK COMFORT CURVE STRIP VI SCH ×2 (07:15→11:35)
[2023-04-06] MEDS: FERROUS SULFATE 325mg EC TAB PO SCH (09:02)
[2023-04-06] MEDS: VENLAFAXINE HCL 37.5mg XR cap PO SCH (10:00)
[2023-04-06] MEDS: CARVEDILOL 3.125 MG TAB PO SCH (10:00)
[2023-04-06] MEDS ORDERED: DOXY-346 PO (10:16)
[2023-04-06] MEDS ORDERED: APIX5TAB PO (10:16)
[2023-04-06] MEDS: FUROSEMIDE 20 MG/2 ML VIAL IV SCH (10:57)
[2023-04-06] MEDS: APIXABAN 5 MG TAB PO SCH (10:58)
[2023-04-06] MEDS: CARBIDOPA W LEVODOPA 25/100mg TABLET PO SCH (10:58)
[2023-04-06] MEDS: PANTOPRAZOLE 40 MG TAB PO SCH (10:58)
[2023-04-06] MEDS: ATORVASTATIN 20 MG TAB PO SCH (10:58)
[2023-04-06] MEDS: FLUoxetine HCL 10 MG CAP PO SCH (10:58)
[2023-04-06] MEDS: SACUBITRIL-VALSARTAN 24mg/26mg TAB PO SCH (10:58)
[2023-04-06] MEDS: CHOLECALCIFEROL (VITD3) 2,000 UNIT CAP/TAB PO SCH (10:58)
[2023-04-06] MEDS ORDERED: IPRATROPIUM BROM 0.5 MG/2.5ML INH SOL NEB SCH (12:00)
[2023-04-06] MEDS ORDERED: ALBUTEROL SULF 2.5 MG/0.5ML(0.5%) NEB SOLN NEB SCH (12:00)
== END 2023-04-06 15:35 | disposition home or self-care (01) | DRG 175 ==
LOC: ER 14:37 → TELE 19:35 → TELE-CENTR 04-03 21:50
PROVIDERS: ADMIT Nurse Practitioner Family; ATTEND Internal Medicine
DX: I26.99 Other pulmonary embolism without acute cor pulmonale (principal); I50.21 Acute systolic (congestive) heart failure; J15.69 Pneumonia due to other Gram-negative bacteria; J96.00 Acute respiratory failure, unspecified whether with hypoxia or hypercapnia; J15.9 Unspecified bacterial pneumonia; D68.69 Other thrombophilia; I11.0 Hypertensive heart disease with heart failure; E66.01 Morbid (severe) obesity due to excess calories; E11.65 Type 2 diabetes mellitus with hyperglycemia; E78.5 Hyperlipidemia, unspecified; I48.91 Unspecified atrial fibrillation; Z20.822 Contact with and (suspected) exposure to COVID-19; G20.A1 Parkinson's disease without dyskinesia, without mention of fluctuations; I25.10 Atherosclerotic heart disease of native coronary artery without angina pectoris; Z82.49 Family history of ischemic heart disease and other diseases of the circulatory system; Z95.810 Presence of automatic (implantable) cardiac defibrillator; Z88.0 Allergy status to penicillin; Z95.5 Presence of coronary angioplasty implant and graft; Z86.16 Personal history of COVID-19; Z68.30 Body mass index [BMI] 30.0-30.9, adult
CPT/HCPCS: 36415; 36600; 71045; 71275; 80048; 80053; 80061; 81001; 82805; 82962; 83036; 83880; 84443; 84484; 85025; 85379; 85610; 85730; 87426; 87804; 93005; 94640; 96365; 96375; 97110; 97116; 97163; 99291; G0378; J1815

== ENCOUNTER 2023-04-15 07:25 | Inpatient (IN) | payer MEDICARE ==
[~2023-04-15] VITALS: Ht 177.8 cm; Wt 105.6 kg
[2023-04-15] VITALS (8 sets, daily range): PULSE 92–109; RESP 10–24; O2SAT 92–98
[~2023-04-15 07:25] MED LIST changes: +APIX5TAB PO; +DOXY-346 PO
[2023-04-15 08:10] LABS: Basophils # (auto) 0 10 ^3/uL (0-0.2); Basophils % (auto) 0.6 % (0.0-2.0); Eosinophils # (auto) 0.2 10 ^3/uL (0-0.8); Eosinophils % (auto) 2.9 % (0.0-7.0); Hematocrit 36.5 % (41.0-53.0); Lymphocytes # (auto) 0.5 10 ^3/uL (0.4-5.4); Lymphocytes % (auto) 7.5 % (10.0-50.0); Mean Corpuscular Hemoglobin 29.8 pg (28.0-32.0); Mean Corpuscular Hgb Conc. 32.9 g/dL (32.0-36.0); Mean Corpuscular Volume 90.5 fL (80.0-100.0); Monocytes # (auto) 0.5 10 ^3/uL (0-1.3); Neutrophils # (auto) 5.4 10 ^3/uL (1.6-8.6); Red Blood Cells 4.03 10^6/uL (4.5-5.90); Red Cell Distribution Width 13.6 % (11.8-14.3); White Blood Cell 6.6 10^3/uL (4.4-10.8)
[2023-04-15 08:31] LABS: Alanine Aminotransferase 13 U/L (7-40); Albumin 3.5 g/dL (3.2-4.8); Alkaline Phosphatase 57 U/L (46-116); Anion Gap 7 (5-15); Aspartate Aminotransferase 29 U/L (13-40); Bilirubin, Total 0.6 mg/dL (0.2-1.0); Blood Urea Nitrogen 19 mg/dL (9-23); Calcium 9.1 mg/dL (8.5-10.1); Carbon Dioxide 26 mmol/L (20-30); Chloride 100 mmol/L (98-107); Glucose 194 mg/dL (74-106); Potassium 4.8 mmol/L (3.5-5.1); Sodium 133 mmol/L (136-145); Total Protein 5.8 g/dL (5.7-8.2)
[2023-04-15 08:52] LABS: COVID19 ANTIGEN SOFIA FIA NEGATIVE (NEGATIVE); Rapid Influenza A Negative (Negative); Rapid Influenza B Negative (Negative)
[2023-04-15] MEDS ORDERED: PROMETHAZINE W/CODEINE 5 ML ORAL SYRUP PO ONE (09:30)
[2023-04-15] MEDS: FUROSEMIDE 40 MG/4 ML VIAL IV ONE ×2 (09:42→11:38)
[2023-04-15] MEDS ORDERED: ALBUMIN 25% 100 ML IV ONE (09:45)
[2023-04-15] MEDS ORDERED: MORPHINE SULFATE INJ 2 MG/ml SYRG IV PRN (10:30)
[2023-04-15] MEDS ORDERED: NITROGLYCERIN 0.4 MG SL TAB SL PRN (10:30)
[2023-04-15] MEDS ORDERED: DOCUSATE SOD 100 MG CAP PO PRN (10:30)
[2023-04-15] MEDS ORDERED: DEXTROSE (50%) 50ML SYRG IV PRN (10:30)
[2023-04-15] MEDS ORDERED: ONDANSETRON HCL 4 MG/2 ML VIAL IV PRN (10:30)
[2023-04-15] MEDS ORDERED: NOREPINEPHRINE 8 MG/250ML KIT 250 ML IV ONE (11:04)
[2023-04-15 11:07] LABS: Urine Epithelial Cast None Seen /hpf (<5)
[2023-04-15] MEDS ORDERED: VANCOMYCIN PER PHARMACY 0 MG IV SCH (11:15)
[2023-04-15 11:25] LABS: Urine Bacteria NONE SEEN /hpf (None Seen); Urine Blood Negative /uL (Negative); Urine Clarity Clear (Clear); Urine Color Yellow (Yellow); Urine Hyaline Cast MANY /lpf (0 - 2); Urine Protein, UAD Negative (Negative); Urine Specific Gravity 1.009 (1.001-1.035); Urine Urobilinogen Normal (Negative); Urine WBC 1 /hpf (0 - 3)
[2023-04-15] MEDS: NOREPINEPHRINE 8 MG/250ML KIT 250 ML IV SCH (11:28)
[2023-04-15] MEDS: IPRATROPIUM BROM 0.5 MG/2.5ML INH SOL NEB SCH ×2 (11:44→19:22)
[2023-04-15] MEDS: LEVALBUTEROL HCL 1.25 MG/3 ML NEB NEB SCH ×2 (11:45→19:22)
[2023-04-15 11:55] LABS: INR 1.26 (0.9-1.15); Partial Thromboplastin Time 37.7 SEC (24.5-34.5)
[2023-04-15] MEDS: ACCU-CHEK COMFORT CURVE STRIP VI SCH ×3 (11:56→22:17)
[2023-04-15] MEDS: InsuLIN REG 1unit/0.01ml Soln (100units/ml) SC SCH ×3 (11:57→22:16)
[2023-04-15] MEDS ORDERED: VANCOMYCIN 1GM/200ML 200 ML IV ONE (12:00)
[2023-04-15] MEDS: AZTREONAM 1GM INJ 1 GM in D5W 5% 50 ML IV SCH ×2 (14:30→22:14)
[2023-04-15] MEDS: ACETAMINOPHEN 325 MG TAB PO PRN ×2 (17:04→23:49)
[2023-04-15] MEDS: FUROSEMIDE 20 MG/2 ML VIAL IV SCH (18:00)
[2023-04-15] MEDS: FERROUS SULFATE 325mg EC TAB PO SCH (18:22)
[2023-04-15] MEDS: APIXABAN 5 MG TAB PO SCH (22:14)
[2023-04-15] MEDS: CARBIDOPA W LEVODOPA 25/100mg TABLET PO SCH (22:14)
[2023-04-15] MEDS: SACUBITRIL-VALSARTAN 24mg/26mg TAB PO SCH (22:15)
[2023-04-15] MEDS: guaiFENesin 200 MG/10 ML UD PO PRN (22:15)
[2023-04-15] MEDS: INSULIN LANTUS (GLARGINE) 1 /0.01ml (100units/ml) SC SCH (22:16)
[2023-04-15] MEDS ORDERED: TEMAZEPAM 15 MG CAP PO ONE (22:30)
[2023-04-15] MEDS: VANCOMYCIN 1GM/200ML 200 ML IV SCH (23:49)
[2023-04-16] VITALS (10 sets, daily range): BP systolic 107; BP diastolic 56; PULSE 78–112; RESP 12–20; TEMP 98.3; O2SAT 95–99
[2023-04-16] MEDS: LEVALBUTEROL HCL 1.25 MG/3 ML NEB NEB SCH ×4 (00:17→18:33)
[2023-04-16 05:00] LABS: Albumin 3.5 g/dL (3.2-4.8); Alkaline Phosphatase 48 U/L (46-116); Anion Gap 9 (5-15); Aspartate Aminotransferase 27 U/L (13-40); BUN/Creatinine Ratio 17.2 (10.0-20.0); Bilirubin, Total 0.6 mg/dL (0.2-1.0); Blood Urea Nitrogen 17 mg/dL (9-23); Calcium 8.2 mg/dL (8.7-10.4); Carbon Dioxide 22 mmol/L (20-30); Chloride 102 mmol/L (98-107); Glucose 184 mg/dL (74-106); Potassium 3.8 mmol/L (3.5-5.1); Sodium 133 mmol/L (136-145); Total Protein 5.5 g/dL (5.7-8.2)
[2023-04-16 05:03] LABS: Alanine Aminotransferase < 9 U/L (7-40)
[2023-04-16 05:07] LABS: Basophils # (auto) 0 10 ^3/uL (0-0.2); Basophils % (auto) 0.4 % (0.0-2.0); Eosinophils # (auto) 0.2 10 ^3/uL (0-0.8); Eosinophils % (auto) 2.1 % (0.0-7.0); Hematocrit 33.1 % (41.0-53.0); Hemoglobin 11.4 g/dL (13.5-17.5); Lymphocytes # (auto) 1.1 10 ^3/uL (0.4-5.4); Lymphocytes % (auto) 12.8 % (10.0-50.0); Mean Corpuscular Hemoglobin 30.7 pg (28.0-32.0); Mean Corpuscular Hgb Conc. 34.3 g/dL (32.0-36.0); Mean Corpuscular Volume 89.5 fL (80.0-100.0); Monocytes # (auto) 0.8 10 ^3/uL (0-1.3); Monocytes % (auto) 9.7 % (0.0-12.0); Neutrophils # (auto) 6.2 10 ^3/uL (1.6-8.6); Red Cell Distribution Width 13.7 % (11.8-14.3); White Blood Cell 8.3 10^3/uL (4.4-10.8)
[2023-04-16] MEDS: NOREPINEPHRINE 8 MG/250ML KIT 250 ML IV SCH ×2 (05:42→05:44)
[2023-04-16] MEDS: AZTREONAM 1GM INJ 1 GM in D5W 5% 50 ML IV SCH (06:08)
[2023-04-16] MEDS: IPRATROPIUM BROM 0.5 MG/2.5ML INH SOL NEB SCH ×3 (06:10→18:33)
[2023-04-16] MEDS: FUROSEMIDE 20 MG/2 ML VIAL IV SCH ×2 (06:15→20:26)
[2023-04-16] MEDS: ACCU-CHEK COMFORT CURVE STRIP VI SCH ×4 (06:53→21:24)
[2023-04-16] MEDS: InsuLIN REG 1unit/0.01ml Soln (100units/ml) SC SCH ×4 (06:53→21:45)
[2023-04-16] MEDS: FERROUS SULFATE 325mg EC TAB PO SCH ×2 (09:21→20:25)
[2023-04-16] MEDS: VENLAFAXINE HCL 150 MG PO SCH (09:21)
[2023-04-16] MEDS: PANTOPRAZOLE 40 MG TAB PO SCH (09:22)
[2023-04-16] MEDS: SACUBITRIL-VALSARTAN 24mg/26mg TAB PO SCH ×2 (09:22→21:41)
[2023-04-16] MEDS: APIXABAN 5 MG TAB PO SCH ×2 (09:22→21:41)
[2023-04-16] MEDS: CHOLECALCIFEROL (VITD3) 2,000 UNIT CAP/TAB PO SCH (09:22)
[2023-04-16] MEDS: CARBIDOPA W LEVODOPA 25/100mg TABLET PO SCH ×2 (09:22→21:41)
[2023-04-16] MEDS: SIMVASTATIN 40 MG PO SCH (09:23)
[2023-04-16] MEDS: FLUoxetine HCL 10 MG CAP PO SCH (09:23)
[2023-04-16] MEDS: guaiFENesin 200 MG/10 ML UD PO PRN ×2 (10:14→23:39)
[2023-04-16] MEDS: VANCOMYCIN 1GM/200ML 200 ML IV SCH ×2 (12:28→23:39)
[2023-04-16] MEDS: CEFEPIME 2GM/50ML NS 50 ML IV SCH ×2 (14:53→21:41)
[2023-04-16] MEDS: INSULIN LANTUS (GLARGINE) 1 /0.01ml (100units/ml) SC SCH (21:44)
[2023-04-17] MEDS: NOREPINEPHRINE 8 MG/250ML KIT 250 ML IV SCH (00:24)
[2023-04-17] MEDS: ACETAMINOPHEN 325 MG TAB PO PRN (04:37)
[2023-04-17 06:00] VITALS: PULSE 111; RESP 18; O2SAT 92
[2023-04-17] MEDS: IPRATROPIUM BROM 0.5 MG/2.5ML INH SOL NEB SCH ×3 (06:00→17:36)
[2023-04-17] MEDS: LEVALBUTEROL HCL 1.25 MG/3 ML NEB NEB SCH ×4 (06:00→17:36)
[2023-04-17 06:14] VITALS: PULSE 102; RESP 16; O2SAT 97
[2023-04-17] MEDS: ACCU-CHEK COMFORT CURVE STRIP VI SCH ×4 (06:24→23:11)
[2023-04-17] MEDS: FUROSEMIDE 20 MG/2 ML VIAL IV SCH ×2 (06:36→18:16)
[2023-04-17] MEDS: InsuLIN REG 1unit/0.01ml Soln (100units/ml) SC SCH ×4 (06:36→23:10)
[2023-04-17] MEDS: CEFEPIME 2GM/50ML NS 50 ML IV SCH ×3 (06:36→23:13)
[2023-04-17 07:30] VITALS: PULSE 90; RESP 18; O2SAT 94
[2023-04-17] MEDS: FERROUS SULFATE 325mg EC TAB PO SCH ×2 (09:59→18:00)
[2023-04-17] MEDS: CHOLECALCIFEROL (VITD3) 2,000 UNIT CAP/TAB PO SCH (09:59)
[2023-04-17] MEDS: CARBIDOPA W LEVODOPA 25/100mg TABLET PO SCH ×2 (09:59→23:14)
[2023-04-17] MEDS: FLUoxetine HCL 10 MG CAP PO SCH (09:59)
[2023-04-17] MEDS: PANTOPRAZOLE 40 MG TAB PO SCH (09:59)
[2023-04-17] MEDS: APIXABAN 5 MG TAB PO SCH ×2 (09:59→23:13)
[2023-04-17] MEDS: SACUBITRIL-VALSARTAN 24mg/26mg TAB PO SCH ×2 (10:00→23:13)
[2023-04-17] MEDS: SIMVASTATIN 40 MG PO SCH (10:00)
[2023-04-17] MEDS: VENLAFAXINE HCL 150 MG PO SCH (10:00)
[2023-04-17] MEDS: VANCOMYCIN 1GM/200ML 200 ML IV SCH ×2 (10:05→20:11)
[2023-04-17] MEDS ORDERED: SODIUM CHLORIDE 0.9% 500 ML IV ONE (14:00)
[2023-04-17] MEDS: DOPamine 1600MCG/ML D5W 250 ML IV SCH (14:35)
[2023-04-17] MEDS ORDERED: DOCUSATE SOD 100 MG CAP PO ONE (16:13)
[2023-04-17] MEDS ORDERED: DOCUSATE SOD 100 MG CAP PO PRN (16:30)
[2023-04-17 17:36] VITALS: PULSE 86; RESP 26; O2SAT 93
[2023-04-17 17:43] VITALS: PULSE 92; RESP 15; O2SAT 97
[2023-04-17 19:35] VITALS: PULSE 95; RESP 12; O2SAT 96
[2023-04-17] MEDS: INSULIN LANTUS (GLARGINE) 1 /0.01ml (100units/ml) SC SCH (23:11)
[2023-04-18] VITALS (13 sets, daily range): BP systolic 82–98; BP diastolic 46–58; PULSE 62–125; RESP 16–18; TEMP 98.1–98.8; O2SAT 93–99
[2023-04-18] MEDS: LEVALBUTEROL HCL 1.25 MG/3 ML NEB NEB SCH ×4 (00:45→18:50)
[2023-04-18] MEDS: DOPamine 1600MCG/ML D5W 250 ML IV SCH ×2 (04:40→17:54)
[2023-04-18] MEDS: guaiFENesin 200 MG/10 ML UD PO PRN (04:56)
[2023-04-18] MEDS: VANCOMYCIN 1GM/200ML 200 ML IV SCH (06:00)
[2023-04-18] MEDS: CEFEPIME 2GM/50ML NS 50 ML IV SCH (06:30)
[2023-04-18] MEDS: FUROSEMIDE 20 MG/2 ML VIAL IV SCH ×2 (06:31→17:40)
[2023-04-18] MEDS: ACCU-CHEK COMFORT CURVE STRIP VI SCH ×4 (06:35→21:12)
[2023-04-18] MEDS: InsuLIN REG 1unit/0.01ml Soln (100units/ml) SC SCH ×4 (06:36→21:19)
[2023-04-18] MEDS: IPRATROPIUM BROM 0.5 MG/2.5ML INH SOL NEB SCH ×3 (07:20→18:50)
[2023-04-18] MEDS: FERROUS SULFATE 325mg EC TAB PO SCH ×2 (09:29→17:40)
[2023-04-18] MEDS: CARBIDOPA W LEVODOPA 25/100mg TABLET PO SCH ×2 (09:30→21:12)
[2023-04-18] MEDS: FLUoxetine HCL 10 MG CAP PO SCH (09:30)
[2023-04-18] MEDS: APIXABAN 5 MG TAB PO SCH ×2 (09:30→21:12)
[2023-04-18] MEDS: PANTOPRAZOLE 40 MG TAB PO SCH (09:30)
[2023-04-18] MEDS: SACUBITRIL-VALSARTAN 24mg/26mg TAB PO SCH ×2 (09:36→21:27)
[2023-04-18] MEDS: VENLAFAXINE HCL 150 MG PO SCH (09:47)
[2023-04-18] MEDS: SIMVASTATIN 40 MG PO SCH (09:47)
[2023-04-18] MEDS: CHOLECALCIFEROL (VITD3) 2,000 UNIT CAP/TAB PO SCH (10:31)
[2023-04-18 13:57] LABS: Alkaline Phosphatase 49 U/L (46-116); Calcium 8.5 mg/dL (8.5-10.1); Chloride 104 mmol/L (98-107)
[2023-04-18 13:58] LABS: Albumin 3.4 g/dL (3.2-4.8); Anion Gap 11 (5-15); Aspartate Aminotransferase 24 U/L (13-40); BUN/Creatinine Ratio 10.9 (10.0-20.0); Bilirubin, Total 0.5 mg/dL (0.2-1.0); Blood Urea Nitrogen 10 mg/dL (9-23); Carbon Dioxide 20 mmol/L (20-30); Glucose 134 mg/dL (74-106); Sodium 135 mmol/L (136-145); Total Protein 5.6 g/dL (5.7-8.2)
[2023-04-18 14:20] LABS: Alanine Aminotransferase < 9 U/L (7-40)
[2023-04-18] MEDS: TEMAZEPAM 15 MG CAP PO SCH (21:11)
[2023-04-18] MEDS: ATORVASTATIN 20 MG TAB PO SCH (21:12)
[2023-04-18] MEDS: INSULIN LANTUS (GLARGINE) 1 /0.01ml (100units/ml) SC SCH (21:20)
[2023-04-18] MEDS: MUPIROCIN 2% OINT 15gm or 22gm FOR MRSA NARES EACHNOSTRI SCH (22:00)
[2023-04-19] VITALS (15 sets, daily range): BP systolic 73–98; BP diastolic 42–56; PULSE 60–112; RESP 16–20; TEMP 97.5–99.1; O2SAT 89–99
[2023-04-19] MEDS: FUROSEMIDE 20 MG/2 ML VIAL IV SCH ×2 (06:38→17:29)
[2023-04-19] MEDS: ACCU-CHEK COMFORT CURVE STRIP VI SCH ×4 (06:52→21:32)
[2023-04-19] MEDS: DOPamine 1600MCG/ML D5W 250 ML IV SCH ×3 (06:53→23:55)
[2023-04-19] MEDS: InsuLIN REG 1unit/0.01ml Soln (100units/ml) SC SCH ×4 (06:59→21:37)
[2023-04-19] MEDS: IPRATROPIUM BROM 0.5 MG/2.5ML INH SOL NEB SCH ×3 (07:05→19:15)
[2023-04-19] MEDS: LEVALBUTEROL HCL 1.25 MG/3 ML NEB NEB SCH ×4 (07:05→19:14)
[2023-04-19] MEDS: VENLAFAXINE HCL 150 MG PO SCH (09:13)
[2023-04-19] MEDS: PANTOPRAZOLE 40 MG TAB PO SCH (09:15)
[2023-04-19] MEDS: SACUBITRIL-VALSARTAN 24mg/26mg TAB PO SCH ×2 (09:15→21:29)
[2023-04-19] MEDS: FLUoxetine HCL 10 MG CAP PO SCH (09:15)
[2023-04-19] MEDS: CARBIDOPA W LEVODOPA 25/100mg TABLET PO SCH ×2 (09:15→21:30)
[2023-04-19] MEDS: FERROUS SULFATE 325mg EC TAB PO SCH ×2 (09:15→17:29)
[2023-04-19] MEDS: CHOLECALCIFEROL (VITD3) 2,000 UNIT CAP/TAB PO SCH (09:16)
[2023-04-19] MEDS: APIXABAN 5 MG TAB PO SCH ×2 (09:16→21:29)
[2023-04-19] MEDS: MUPIROCIN 2% OINT 15gm or 22gm FOR MRSA NARES EACHNOSTRI SCH ×2 (09:17→21:53)
[2023-04-19] MEDS: guaiFENesin 200 MG/10 ML UD PO PRN (09:19)
[2023-04-19] MEDS: ALBUMIN 25% 50 ML IV SCH ×2 (14:51→21:30)
[2023-04-19] MEDS ORDERED: IOHEXOL 300 MG/ML 100ML BOTTLE IJ ONE (15:04)
[2023-04-19] MEDS: TEMAZEPAM 15 MG CAP PO SCH (21:29)
[2023-04-19] MEDS: ATORVASTATIN 20 MG TAB PO SCH (21:30)
[2023-04-19] MEDS: INSULIN LANTUS (GLARGINE) 1 /0.01ml (100units/ml) SC SCH (21:38)
[2023-04-19] MEDS ORDERED: DIGOXIN (250MCG/ML) 2 ML AMPULE IV ONE ×2 (22:45)
[2023-04-20] VITALS (18 sets, daily range): BP systolic 78–114; BP diastolic 45–89; PULSE 50–127; RESP 16–20; TEMP 98.4–99.6; O2SAT 92–99
[2023-04-20] MEDS: ALBUMIN 25% 50 ML IV SCH (04:46)
[2023-04-20] MEDS: InsuLIN REG 1unit/0.01ml Soln (100units/ml) SC SCH ×4 (06:38→21:37)
[2023-04-20] MEDS: ACCU-CHEK COMFORT CURVE STRIP VI SCH ×4 (06:38→21:28)
[2023-04-20] MEDS: FUROSEMIDE 20 MG/2 ML VIAL IV SCH ×2 (06:45→18:00)
[2023-04-20] MEDS: IPRATROPIUM BROM 0.5 MG/2.5ML INH SOL NEB SCH ×3 (07:22→19:17)
[2023-04-20] MEDS: LEVALBUTEROL HCL 1.25 MG/3 ML NEB NEB SCH ×4 (07:23→19:17)
[2023-04-20] MEDS: VENLAFAXINE HCL 150 MG PO SCH (10:00)
[2023-04-20] MEDS: FERROUS SULFATE 325mg EC TAB PO SCH ×2 (10:33→19:02)
[2023-04-20] MEDS: APIXABAN 5 MG TAB PO SCH (10:34)
[2023-04-20] MEDS: CHOLECALCIFEROL (VITD3) 2,000 UNIT CAP/TAB PO SCH (10:34)
[2023-04-20] MEDS: PANTOPRAZOLE 40 MG TAB PO SCH (10:34)
[2023-04-20] MEDS: CARBIDOPA W LEVODOPA 25/100mg TABLET PO SCH ×2 (10:34→21:27)
[2023-04-20] MEDS: FLUoxetine HCL 10 MG CAP PO SCH (10:34)
[2023-04-20] MEDS: MUPIROCIN 2% OINT 15gm or 22gm FOR MRSA NARES EACHNOSTRI SCH ×2 (10:35→21:31)
[2023-04-20] MEDS: SACUBITRIL-VALSARTAN 24mg/26mg TAB PO SCH ×2 (12:19→21:28)
[2023-04-20] MEDS: DOPamine 1600MCG/ML D5W 250 ML IV SCH (12:20)
[2023-04-20] MEDS ORDERED: FUROSEMIDE 40 MG/4 ML VIAL IV ONE (15:00)
[2023-04-20] MEDS ORDERED: cefTRIAXone 1GM/50ML D5W 50 ML IV ONE (17:30)
[2023-04-20 18:16] LABS: Urine Epithelial Cast None Seen /hpf (<5)
[2023-04-20 18:49] LABS: Urine Bacteria NONE SEEN /hpf (None Seen); Urine Blood 3+ /uL (Negative); Urine Clarity Clear (Clear); Urine Color Yellow (Yellow); Urine Hyaline Cast FEW /lpf (0 - 2); Urine Protein, UAD Negative (Negative); Urine Specific Gravity 1.011 (1.001-1.035); Urine Urobilinogen Normal (Negative); Urine WBC 10 /hpf (0 - 3); Urine pH 5.5 (5.0-8.0)
[2023-04-20] MEDS: ATORVASTATIN 20 MG TAB PO SCH (21:27)
[2023-04-20] MEDS: FLUDROCORTISONE ACETATE 0.1 MG TAB PO SCH (21:27)
[2023-04-20] MEDS: TEMAZEPAM 15 MG CAP PO SCH (21:28)
[2023-04-20] MEDS: guaiFENesin 200 MG/10 ML UD PO PRN (21:34)
[2023-04-20] MEDS: INSULIN LANTUS (GLARGINE) 1 /0.01ml (100units/ml) SC SCH (21:37)
[2023-04-21] VITALS (15 sets, daily range): BP systolic 74–110; BP diastolic 38–55; PULSE 110–140; RESP 16–53; TEMP 97–99.9; O2SAT 92–99
[2023-04-21] MEDS: guaiFENesin 200 MG/10 ML UD PO PRN ×3 (02:47→21:05)
[2023-04-21] MEDS: ACCU-CHEK COMFORT CURVE STRIP VI SCH ×4 (06:26→21:11)
[2023-04-21] MEDS: FUROSEMIDE 20 MG/2 ML VIAL IV SCH ×2 (06:26→17:43)
[2023-04-21] MEDS: InsuLIN REG 1unit/0.01ml Soln (100units/ml) SC SCH ×4 (06:36→21:12)
[2023-04-21] MEDS: IPRATROPIUM BROM 0.5 MG/2.5ML INH SOL NEB SCH ×3 (06:46→19:32)
[2023-04-21] MEDS: LEVALBUTEROL HCL 1.25 MG/3 ML NEB NEB SCH ×4 (06:46→19:32)
[2023-04-21] MEDS: MUPIROCIN 2% OINT 15gm or 22gm FOR MRSA NARES EACHNOSTRI SCH ×2 (10:00→21:11)
[2023-04-21] MEDS: FLUoxetine HCL 10 MG CAP PO SCH (10:19)
[2023-04-21] MEDS: FERROUS SULFATE 325mg EC TAB PO SCH ×2 (10:19→17:57)
[2023-04-21] MEDS: PANTOPRAZOLE 40 MG TAB PO SCH (10:19)
[2023-04-21] MEDS: FLUDROCORTISONE ACETATE 0.1 MG TAB PO SCH ×2 (10:19→21:06)
[2023-04-21] MEDS: CARBIDOPA W LEVODOPA 25/100mg TABLET PO SCH ×2 (10:19→21:06)
[2023-04-21] MEDS: SACUBITRIL-VALSARTAN 24mg/26mg TAB PO SCH ×2 (10:19→21:06)
[2023-04-21] MEDS: cefTRIAXone 1GM/50ML D5W 50 ML IV SCH (10:20)
[2023-04-21] MEDS: CHOLECALCIFEROL (VITD3) 2,000 UNIT CAP/TAB PO SCH (10:52)
[2023-04-21] MEDS: TEMAZEPAM 15 MG CAP PO SCH (21:05)
[2023-04-21] MEDS: ATORVASTATIN 20 MG TAB PO SCH (21:06)
[2023-04-21] MEDS: INSULIN LANTUS (GLARGINE) 1 /0.01ml (100units/ml) SC SCH (21:13)
[2023-04-22] VITALS (15 sets, daily range): BP systolic 70–114; BP diastolic 35–64; PULSE 64–129; RESP 16–20; TEMP 98–99.8; O2SAT 90–99
[2023-04-22] MEDS: guaiFENesin 200 MG/10 ML UD PO PRN ×2 (01:29→08:40)
[2023-04-22] MEDS: FUROSEMIDE 20 MG/2 ML VIAL IV SCH ×2 (06:43→18:00)
[2023-04-22] MEDS: ACCU-CHEK COMFORT CURVE STRIP VI SCH ×4 (06:43→21:50)
[2023-04-22] MEDS: InsuLIN REG 1unit/0.01ml Soln (100units/ml) SC SCH ×4 (06:51→22:04)
[2023-04-22] MEDS: FLUoxetine HCL 10 MG CAP PO SCH (08:40)
[2023-04-22] MEDS: FLUDROCORTISONE ACETATE 0.1 MG TAB PO SCH ×2 (08:40→21:47)
[2023-04-22] MEDS: FERROUS SULFATE 325mg EC TAB PO SCH ×2 (08:40→17:52)
[2023-04-22] MEDS: cefTRIAXone 1GM/50ML D5W 50 ML IV SCH (08:41)
[2023-04-22] MEDS: SACUBITRIL-VALSARTAN 24mg/26mg TAB PO SCH ×2 (08:42→21:59)
[2023-04-22] MEDS: CARBIDOPA W LEVODOPA 25/100mg TABLET PO SCH ×2 (08:42→21:47)
[2023-04-22] MEDS: PANTOPRAZOLE 40 MG TAB PO SCH (08:43)
[2023-04-22] MEDS: CHOLECALCIFEROL (VITD3) 2,000 UNIT CAP/TAB PO SCH (08:43)
[2023-04-22] MEDS: MUPIROCIN 2% OINT 15gm or 22gm FOR MRSA NARES EACHNOSTRI SCH ×2 (08:44→21:46)
[2023-04-22] MEDS: LEVALBUTEROL HCL 1.25 MG/3 ML NEB NEB SCH ×4 (08:45→19:13)
[2023-04-22] MEDS: IPRATROPIUM BROM 0.5 MG/2.5ML INH SOL NEB SCH ×3 (08:45→19:13)
[2023-04-22] MEDS: DIGOXIN 0.125 MG TAB PO SCH (10:41)
[2023-04-22] MEDS: guaiFENesin-CODEINE Liq 5 ML UD PO PRN ×2 (17:53→22:03)
[2023-04-22] MEDS: ATORVASTATIN 20 MG TAB PO SCH (21:47)
[2023-04-22] MEDS: TEMAZEPAM 15 MG CAP PO SCH (21:47)
[2023-04-22] MEDS: INSULIN LANTUS (GLARGINE) 1 /0.01ml (100units/ml) SC SCH (22:05)
[2023-04-23] VITALS (25 sets, daily range): BP systolic 66–99; BP diastolic 24–56; PULSE 87–122; RESP 16–41; TEMP 97.9–98.7; O2SAT 91–99
[2023-04-23] MEDS: guaiFENesin 200 MG/10 ML UD PO PRN ×2 (02:57→13:26)
[2023-04-23] MEDS: FUROSEMIDE 20 MG/2 ML VIAL IV SCH (05:26)
[2023-04-23] MEDS: IPRATROPIUM BROM 0.5 MG/2.5ML INH SOL NEB SCH ×4 (06:59→18:53)
[2023-04-23] MEDS: LEVALBUTEROL HCL 1.25 MG/3 ML NEB NEB SCH ×5 (06:59→18:53)
[2023-04-23] MEDS: InsuLIN REG 1unit/0.01ml Soln (100units/ml) SC SCH ×4 (07:00→21:03)
[2023-04-23] MEDS: ACCU-CHEK COMFORT CURVE STRIP VI SCH ×4 (07:00→21:03)
[2023-04-23] MEDS: cefTRIAXone 1GM/50ML D5W 50 ML IV SCH (10:06)
[2023-04-23] MEDS: SACUBITRIL-VALSARTAN 24mg/26mg TAB PO SCH (10:06)
[2023-04-23] MEDS: FLUDROCORTISONE ACETATE 0.1 MG TAB PO SCH ×2 (10:07→20:56)
[2023-04-23] MEDS: CARBIDOPA W LEVODOPA 25/100mg TABLET PO SCH ×2 (10:07→20:56)
[2023-04-23] MEDS: FLUoxetine HCL 10 MG CAP PO SCH (10:07)
[2023-04-23] MEDS: FERROUS SULFATE 325mg EC TAB PO SCH ×2 (10:09→17:41)
[2023-04-23] MEDS: DIGOXIN 0.125 MG TAB PO SCH (10:09)
[2023-04-23] MEDS: MUPIROCIN 2% OINT 15gm or 22gm FOR MRSA NARES EACHNOSTRI SCH (10:18)
[2023-04-23] MEDS: PANTOPRAZOLE 40 MG TAB PO SCH (10:18)
[2023-04-23] MEDS: CHOLECALCIFEROL (VITD3) 2,000 UNIT CAP/TAB PO SCH (10:19)
[2023-04-23 14:40] LABS: Basophils # (auto) 0 10 ^3/uL (0-0.2); Basophils % (auto) 0.4 % (0.0-2.0); Eosinophils # (auto) 0.2 10 ^3/uL (0-0.8); Eosinophils % (auto) 1.9 % (0.0-7.0); Hemoglobin 8.6 g/dL (13.5-17.5); Lymphocytes # (auto) 0.5 10 ^3/uL (0.4-5.4); Lymphocytes % (auto) 4.4 % (10.0-50.0); Mean Corpuscular Hemoglobin 29.9 pg (28.0-32.0); Mean Corpuscular Hgb Conc. 33.1 g/dL (32.0-36.0); Mean Corpuscular Volume 90.3 fL (80.0-100.0); Monocytes # (auto) 0.6 10 ^3/uL (0-1.3); Neutrophils # (auto) 9.2 10 ^3/uL (1.6-8.6); Neutrophils % (auto) 87.3 % (37.0-80.0); Red Blood Cells 2.88 10^6/uL (4.5-5.90); Red Cell Distribution Width 14.1 % (11.8-14.3); White Blood Cell 10.5 10^3/uL (4.4-10.8)
[2023-04-23 14:56] LABS: Albumin 3.2 g/dL (3.2-4.8); Alkaline Phosphatase 50 U/L (46-116); Anion Gap 8 (5-15); Aspartate Aminotransferase 34 U/L (13-40); Blood Urea Nitrogen 26 mg/dL (9-23); Calcium 8.3 mg/dL (8.5-10.1); Carbon Dioxide 24 mmol/L (20-30); Chloride 101 mmol/L (98-107); Glucose 214 mg/dL (74-106); Potassium 3.7 mmol/L (3.5-5.1); Sodium 133 mmol/L (136-145)
[2023-04-23 14:57] LABS: Alanine Aminotransferase < 9 U/L (7-40); Bilirubin, Total 0.5 mg/dL (0.2-1.0); Total Protein 5.2 g/dL (5.7-8.2)
[2023-04-23] MEDS: TEMAZEPAM 15 MG CAP PO SCH (20:55)
[2023-04-23] MEDS: ATORVASTATIN 20 MG TAB PO SCH (20:55)
[2023-04-23] MEDS: ENOXAPARIN SOD 80 MG/0.8ML SYRINGE SC SCH (20:57)
[2023-04-23] MEDS: INSULIN LANTUS (GLARGINE) 1 /0.01ml (100units/ml) SC SCH (21:03)
[2023-04-23] MEDS: NOREPINEPHRINE 8 MG/250ML KIT 250 ML IV SCH (22:13)
[2023-04-24] VITALS (94 sets, daily range): BP systolic 64–120; BP diastolic 37–69; PULSE 84–116; RESP 11–54; TEMP 98.2–98.8; O2SAT 89–99
[2023-04-24] MEDS: NOREPINEPHRINE 8 MG/250ML KIT 250 ML IV SCH ×2 (06:00→15:49)
[2023-04-24] MEDS: ACCU-CHEK COMFORT CURVE STRIP VI SCH ×4 (06:07→21:36)
[2023-04-24] MEDS: InsuLIN REG 1unit/0.01ml Soln (100units/ml) SC SCH ×4 (06:08→21:37)
[2023-04-24] MEDS: LEVALBUTEROL HCL 1.25 MG/3 ML NEB NEB SCH ×4 (06:44→18:54)
[2023-04-24] MEDS: IPRATROPIUM BROM 0.5 MG/2.5ML INH SOL NEB SCH ×3 (06:44→18:54)
[2023-04-24] MEDS: FERROUS SULFATE 325mg EC TAB PO SCH ×2 (07:52→18:13)
[2023-04-24] MEDS: cefTRIAXone 1GM/50ML D5W 50 ML IV SCH (07:53)
[2023-04-24] MEDS: FLUDROCORTISONE ACETATE 0.1 MG TAB PO SCH ×2 (10:32→21:36)
[2023-04-24] MEDS: DIGOXIN 0.125 MG TAB PO SCH (10:32)
[2023-04-24] MEDS: ENOXAPARIN SOD 80 MG/0.8ML SYRINGE SC SCH ×2 (10:33→21:36)
[2023-04-24] MEDS: CARBIDOPA W LEVODOPA 25/100mg TABLET PO SCH ×2 (10:33→21:36)
[2023-04-24] MEDS: PANTOPRAZOLE 40 MG TAB PO SCH (10:33)
[2023-04-24] MEDS: CHOLECALCIFEROL (VITD3) 2,000 UNIT CAP/TAB PO SCH (10:33)
[2023-04-24] MEDS: FLUoxetine HCL 10 MG CAP PO SCH (10:45)
[2023-04-24 11:14] LABS: INR 1.14 (0.9-1.15); Prothrombin Time 11.9 sec (9.3-11.8)
[2023-04-24 11:52] LABS: Basophils # (auto) 0.1 10 ^3/uL (0-0.2); Basophils % (auto) 0.3 % (0.0-2.0); Eosinophils # (auto) 0.3 10 ^3/uL (0-0.8); Eosinophils % (auto) 1.7 % (0.0-7.0); Hematocrit 29.3 % (41.0-53.0); Hemoglobin 9.3 g/dL (13.5-17.5); Lymphocytes # (auto) 0.8 10 ^3/uL (0.4-5.4); Lymphocytes % (auto) 5.1 % (10.0-50.0); Mean Corpuscular Hemoglobin 28.7 pg (28.0-32.0); Mean Corpuscular Hgb Conc. 31.8 g/dL (32.0-36.0); Mean Corpuscular Volume 90.1 fL (80.0-100.0); Monocytes % (auto) 6.8 % (0.0-12.0); Neutrophils # (auto) 13.1 10 ^3/uL (1.6-8.6); Neutrophils % (auto) 86.1 % (37.0-80.0); Red Blood Cells 3.25 10^6/uL (4.5-5.90); White Blood Cell 15.2 10^3/uL (4.4-10.8)
[2023-04-24 11:58] LABS: Chloride 102 mmol/L (98-107); Potassium 3.8 mmol/L (3.5-5.1); Sodium 135 mmol/L (136-145)
[2023-04-24 11:59] LABS: Calcium 8.2 mg/dL (8.5-10.1)
[2023-04-24 12:04] LABS: BUN/Creatinine Ratio 27.6 (10.0-20.0); Blood Urea Nitrogen 29 mg/dL (9-23); Glucose 265 mg/dL (74-106)
[2023-04-24 12:44] LABS: Anion Gap 11 (5-15); Carbon Dioxide 22 mmol/L (20-30)
[2023-04-24] MEDS ORDERED: LIDOCAINE 1% (LOCAL ANESTH.) PF 5ml SDV ID ONE (17:00)
[2023-04-24] MEDS: TEMAZEPAM 15 MG CAP PO SCH (21:36)
[2023-04-24] MEDS: SODIUM CHLOR 0.9% PF (SALINE LOCK) 10ML VIAL/SYR IV SCH (21:36)
[2023-04-24] MEDS: ATORVASTATIN 20 MG TAB PO SCH (21:36)
[2023-04-24] MEDS: INSULIN LANTUS (GLARGINE) 1 /0.01ml (100units/ml) SC SCH (21:37)
[2023-04-25] VITALS (104 sets, daily range): BP systolic 66–129; BP diastolic 37–74; PULSE 84–125; RESP 15–45; TEMP 98.2–98.9; O2SAT 4–99
[2023-04-25] MEDS: LEVALBUTEROL HCL 1.25 MG/3 ML NEB NEB SCH ×4 (00:27→18:00)
[2023-04-25] MEDS: NOREPINEPHRINE 8 MG/250ML KIT 250 ML IV SCH ×2 (04:01→14:34)
[2023-04-25] MEDS: ACCU-CHEK COMFORT CURVE STRIP VI SCH ×4 (06:16→21:25)
[2023-04-25] MEDS: InsuLIN REG 1unit/0.01ml Soln (100units/ml) SC SCH ×4 (06:16→21:38)
[2023-04-25] MEDS: IPRATROPIUM BROM 0.5 MG/2.5ML INH SOL NEB SCH ×3 (07:03→18:00)
[2023-04-25] MEDS: DIGOXIN 0.125 MG TAB PO SCH (10:21)
[2023-04-25] MEDS: CARBIDOPA W LEVODOPA 25/100mg TABLET PO SCH ×2 (10:21→21:25)
[2023-04-25] MEDS: FLUDROCORTISONE ACETATE 0.1 MG TAB PO SCH ×2 (10:21→21:25)
[2023-04-25] MEDS: CHOLECALCIFEROL (VITD3) 2,000 UNIT CAP/TAB PO SCH (10:21)
[2023-04-25] MEDS: ENOXAPARIN SOD 80 MG/0.8ML SYRINGE SC SCH ×2 (10:22→21:25)
[2023-04-25] MEDS: PANTOPRAZOLE 40 MG TAB PO SCH (10:22)
[2023-04-25] MEDS: FERROUS SULFATE 325mg EC TAB PO SCH ×2 (10:22→18:53)
[2023-04-25] MEDS: SODIUM CHLOR 0.9% PF (SALINE LOCK) 10ML VIAL/SYR IV SCH (10:23)
[2023-04-25] MEDS: cefTRIAXone 1GM/50ML D5W 50 ML IV SCH (10:23)
[2023-04-25] MEDS ORDERED: ALBUMIN 25% 50 ML IV ONE (13:45)
[2023-04-25] MEDS: FLUoxetine HCL 10 MG CAP PO SCH (14:46)
[2023-04-25 14:59] LABS: Basophils # (auto) 0.1 10 ^3/uL (0-0.2); Basophils % (auto) 0.8 % (0.0-2.0); Eosinophils # (auto) 0.2 10 ^3/uL (0-0.8); Eosinophils % (auto) 1.9 % (0.0-7.0); Hematocrit 28.8 % (41.0-53.0); Hemoglobin 9.3 g/dL (13.5-17.5); Lymphocytes # (auto) 0.7 10 ^3/uL (0.4-5.4); Lymphocytes % (auto) 7.3 % (10.0-50.0); Mean Corpuscular Hemoglobin 29.3 pg (28.0-32.0); Mean Corpuscular Hgb Conc. 32.3 g/dL (32.0-36.0); Mean Corpuscular Volume 90.8 fL (80.0-100.0); Monocytes # (auto) 0.7 10 ^3/uL (0-1.3); Neutrophils # (auto) 7.5 10 ^3/uL (1.6-8.6); Red Blood Cells 3.17 10^6/uL (4.5-5.90); White Blood Cell 9.2 10^3/uL (4.4-10.8)
[2023-04-25] MEDS: levoFLOXacin 500MG 100 ML IV SCH (18:53)
[2023-04-25] MEDS: TEMAZEPAM 15 MG CAP PO SCH (21:24)
[2023-04-25] MEDS: ATORVASTATIN 20 MG TAB PO SCH (21:25)
[2023-04-25] MEDS: INSULIN LANTUS (GLARGINE) 1 /0.01ml (100units/ml) SC SCH (21:32)
[2023-04-26] VITALS (98 sets, daily range): BP systolic 83–123; BP diastolic 43–70; PULSE 75–136; RESP 14–36; TEMP 97–99.1; O2SAT 91–99
[2023-04-26] MEDS: LEVALBUTEROL HCL 1.25 MG/3 ML NEB NEB SCH
[2023-04-26] MEDS: IPRATROPIUM BROM 0.5 MG/2.5ML INH SOL NEB SCH (00:30)
[2023-04-26] MEDS: NOREPINEPHRINE 8 MG/250ML KIT 250 ML IV SCH ×2 (01:35→22:04)
[2023-04-26] MEDS: guaiFENesin 200 MG/10 ML UD PO PRN (02:43)
[2023-04-26 04:11] LABS: Basophils # (auto) 0 10 ^3/uL (0-0.2); Basophils % (auto) 0.6 % (0.0-2.0); Eosinophils # (auto) 0.2 10 ^3/uL (0-0.8); Eosinophils % (auto) 2.3 % (0.0-7.0); Hematocrit 26.1 % (41.0-53.0); Hemoglobin 8.5 g/dL (13.5-17.5); Lymphocytes # (auto) 0.6 10 ^3/uL (0.4-5.4); Lymphocytes % (auto) 8.5 % (10.0-50.0); Mean Corpuscular Hemoglobin 29.6 pg (28.0-32.0); Mean Corpuscular Hgb Conc. 32.6 g/dL (32.0-36.0); Mean Corpuscular Volume 90.8 fL (80.0-100.0); Monocytes # (auto) 0.5 10 ^3/uL (0-1.3); Monocytes % (auto) 6.6 % (0.0-12.0); Neutrophils # (auto) 5.9 10 ^3/uL (1.6-8.6); Nucleated Red Blood Cells % 0.2 %; Red Blood Cells 2.88 10^6/uL (4.5-5.90); Red Cell Distribution Width 14.4 % (11.8-14.3); White Blood Cell 7.1 10^3/uL (4.4-10.8)
[2023-04-26 04:16] LABS: Chloride 106 mmol/L (98-107); Potassium 3.4 mmol/L (3.5-5.1); Sodium 139 mmol/L (136-145)
[2023-04-26 04:17] LABS: Anion Gap 7 (5-15); Calcium 8.6 mg/dL (8.5-10.1); Carbon Dioxide 26 mmol/L (20-30)
[2023-04-26 04:22] LABS: Blood Urea Nitrogen 9 mg/dL (9-23); Glucose 172 mg/dL (74-106)
[2023-04-26 04:25] LABS: % Iron Saturation 46.3 % (20-55)
[2023-04-26] MEDS: SODIUM CHLOR 0.9% PF (SALINE LOCK) 10ML VIAL/SYR IV SCH ×3 (06:12→22:05)
[2023-04-26] MEDS: ACCU-CHEK COMFORT CURVE STRIP VI SCH ×4 (06:12→21:29)
[2023-04-26] MEDS: InsuLIN REG 1unit/0.01ml Soln (100units/ml) SC SCH ×4 (06:12→21:39)
[2023-04-26] MEDS ORDERED: LEVALBUTEROL HCL 1.25 MG/3 ML NEB NEB PRN (07:00)
[2023-04-26] MEDS ORDERED: IPRATROPIUM BROM 0.5 MG/2.5ML INH SOL NEB PRN (07:00)
[2023-04-26] MEDS: FERROUS SULFATE 325mg EC TAB PO SCH ×2 (08:57→18:26)
[2023-04-26] MEDS ORDERED: POTASSIUM CHL 20 Meq TABLET PO ONE (09:15)
[2023-04-26] MEDS: CHOLECALCIFEROL (VITD3) 2,000 UNIT CAP/TAB PO SCH (10:43)
[2023-04-26] MEDS: DIGOXIN 0.125 MG TAB PO SCH (10:44)
[2023-04-26] MEDS: CARBIDOPA W LEVODOPA 25/100mg TABLET PO SCH ×2 (10:44→21:28)
[2023-04-26] MEDS: FLUDROCORTISONE ACETATE 0.1 MG TAB PO SCH ×2 (10:44→21:29)
[2023-04-26] MEDS: ENOXAPARIN SOD 80 MG/0.8ML SYRINGE SC SCH ×2 (10:45→21:29)
[2023-04-26] MEDS: levoFLOXacin 500MG 100 ML IV SCH (10:45)
[2023-04-26] MEDS: PANTOPRAZOLE 40 MG TAB PO SCH (11:13)
[2023-04-26] MEDS: FLUoxetine HCL 10 MG CAP PO SCH (11:14)
[2023-04-26 15:51] LABS: Urine Epithelial Cast None Seen /hpf (<5)
[2023-04-26 16:01] LABS: Urine Bacteria NONE SEEN /hpf (None Seen); Urine Blood Negative /uL (Negative); Urine Clarity Clear (Clear); Urine Color Yellow (Yellow); Urine Hyaline Cast MANY /lpf (0 - 2); Urine Protein, UAD 1+ (Negative); Urine Urobilinogen Normal (Negative); Urine WBC 4 /hpf (0 - 3); Urine pH 6.5 (5.0-8.0)
[2023-04-26] MEDS ORDERED: EPOETIN ALFA-EPBX 10,000 UNIT/1ML VIAL SC ONE (17:00)
[2023-04-26] MEDS: AMIODARONE HCL 200 MG TAB PO SCH (17:42)
[2023-04-26] MEDS: TEMAZEPAM 15 MG CAP PO SCH (21:29)
[2023-04-26] MEDS: ATORVASTATIN 20 MG TAB PO SCH (21:29)
[2023-04-26] MEDS: INSULIN LANTUS (GLARGINE) 1 /0.01ml (100units/ml) SC SCH (21:35)
[2023-04-27] VITALS (92 sets, daily range): BP systolic 82–112; BP diastolic 34–65; PULSE 67–134; RESP 14–35; TEMP 97.7–98.9; O2SAT 82–99
[2023-04-27 03:59] LABS: Basophils # (auto) 0.1 10 ^3/uL (0-0.2); Basophils % (auto) 0.8 % (0.0-2.0); Eosinophils # (auto) 0.3 10 ^3/uL (0-0.8); Eosinophils % (auto) 3.5 % (0.0-7.0); Hemoglobin 9.8 g/dL (13.5-17.5); Lymphocytes # (auto) 0.8 10 ^3/uL (0.4-5.4); Lymphocytes % (auto) 10.6 % (10.0-50.0); Mean Corpuscular Hemoglobin 29.7 pg (28.0-32.0); Mean Corpuscular Hgb Conc. 32.7 g/dL (32.0-36.0); Mean Corpuscular Volume 90.8 fL (80.0-100.0); Monocytes # (auto) 0.5 10 ^3/uL (0-1.3); Monocytes % (auto) 7.2 % (0.0-12.0); Neutrophils # (auto) 5.6 10 ^3/uL (1.6-8.6); Neutrophils % (auto) 77.9 % (37.0-80.0); Red Cell Distribution Width 14.2 % (11.8-14.3); White Blood Cell 7.2 10^3/uL (4.4-10.8)
[2023-04-27 04:00] LABS: Anion Gap 7 (5-15); Carbon Dioxide 25 mmol/L (20-30); Chloride 107 mmol/L (98-107); Potassium 4.2 mmol/L (3.5-5.1); Sodium 139 mmol/L (136-145)
[2023-04-27 04:02] LABS: Calcium 8.4 mg/dL (8.7-10.4)
[2023-04-27 04:07] LABS: BUN/Creatinine Ratio 8.8 (10.0-20.0); Blood Urea Nitrogen 6 mg/dL (9-23); Glucose 155 mg/dL (74-106)
[2023-04-27] MEDS: AMIODARONE HCL 200 MG TAB PO SCH ×2 (06:26→17:38)
[2023-04-27] MEDS: InsuLIN REG 1unit/0.01ml Soln (100units/ml) SC SCH ×4 (06:30→21:47)
[2023-04-27] MEDS: ACCU-CHEK COMFORT CURVE STRIP VI SCH ×4 (06:32→21:12)
[2023-04-27] MEDS: FERROUS SULFATE 325mg EC TAB PO SCH ×2 (08:17→17:38)
[2023-04-27] MEDS: CHOLECALCIFEROL (VITD3) 2,000 UNIT CAP/TAB PO SCH (10:00)
[2023-04-27] MEDS: SODIUM CHLOR 0.9% PF (SALINE LOCK) 10ML VIAL/SYR IV SCH ×2 (10:00→21:10)
[2023-04-27] MEDS: FLUDROCORTISONE ACETATE 0.1 MG TAB PO SCH ×2 (10:47→21:11)
[2023-04-27] MEDS: PANTOPRAZOLE 40 MG TAB PO SCH (10:47)
[2023-04-27] MEDS: levoFLOXacin 500MG 100 ML IV SCH (10:47)
[2023-04-27] MEDS: DIGOXIN 0.125 MG TAB PO SCH (10:48)
[2023-04-27] MEDS: ENOXAPARIN SOD 80 MG/0.8ML SYRINGE SC SCH ×2 (10:48→21:11)
[2023-04-27] MEDS: FLUoxetine HCL 10 MG CAP PO SCH (10:48)
[2023-04-27] MEDS: CARBIDOPA W LEVODOPA 25/100mg TABLET PO SCH ×2 (10:48→21:11)
[2023-04-27] MEDS: IRON SUCROSE COMPLEX 100 ML IV SCH (12:15)
[2023-04-27] MEDS: NOREPINEPHRINE 8 MG/250ML KIT 250 ML IV SCH (20:54)
[2023-04-27] MEDS: ATORVASTATIN 20 MG TAB PO SCH (21:11)
[2023-04-27] MEDS: TEMAZEPAM 15 MG CAP PO SCH (21:11)
[2023-04-27] MEDS: INSULIN LANTUS (GLARGINE) 1 /0.01ml (100units/ml) SC SCH (21:47)
[2023-04-28] VITALS (93 sets, daily range): BP systolic 79–120; BP diastolic 26–74; PULSE 68–130; RESP 13–37; TEMP 97.6–98.3; O2SAT 78–98
[2023-04-28 06:13] LABS: Anion Gap 6 (5-15); Basophils # (auto) 0 10 ^3/uL (0-0.2); Basophils % (auto) 0.7 % (0.0-2.0); Carbon Dioxide 27 mmol/L (20-30); Chloride 107 mmol/L (98-107); Eosinophils # (auto) 0.2 10 ^3/uL (0-0.8); Eosinophils % (auto) 4.2 % (0.0-7.0); Hematocrit 27.3 % (41.0-53.0); Lymphocytes # (auto) 0.8 10 ^3/uL (0.4-5.4); Lymphocytes % (auto) 13.9 % (10.0-50.0); Mean Corpuscular Hemoglobin 29.8 pg (28.0-32.0); Mean Corpuscular Hgb Conc. 32.9 g/dL (32.0-36.0); Mean Corpuscular Volume 90.4 fL (80.0-100.0); Monocytes # (auto) 0.4 10 ^3/uL (0-1.3); Monocytes % (auto) 7.5 % (0.0-12.0); Neutrophils # (auto) 4.1 10 ^3/uL (1.6-8.6); Neutrophils % (auto) 73.7 % (37.0-80.0); Nucleated Red Blood Cells % 0.1 %; Potassium 4.4 mmol/L (3.5-5.1); Red Blood Cells 3.03 10^6/uL (4.5-5.90); Red Cell Distribution Width 14.3 % (11.8-14.3); Sodium 140 mmol/L (136-145); White Blood Cell 5.5 10^3/uL (4.4-10.8)
[2023-04-28 06:14] LABS: Calcium 8.4 mg/dL (8.7-10.4)
[2023-04-28 06:19] LABS: BUN/Creatinine Ratio 8.2 (10.0-20.0); Blood Urea Nitrogen 6 mg/dL (9-23); Glucose 127 mg/dL (74-106)
[2023-04-28] MEDS: InsuLIN REG 1unit/0.01ml Soln (100units/ml) SC SCH ×4 (06:33→22:00)
[2023-04-28] MEDS: ACCU-CHEK COMFORT CURVE STRIP VI SCH ×4 (06:33→22:00)
[2023-04-28] MEDS: AMIODARONE HCL 200 MG TAB PO SCH ×2 (06:33→17:15)
[2023-04-28] MEDS: levoFLOXacin 500MG 100 ML IV SCH (10:33)
[2023-04-28] MEDS: FLUDROCORTISONE ACETATE 0.1 MG TAB PO SCH ×2 (10:34→21:48)
[2023-04-28] MEDS: PANTOPRAZOLE 40 MG TAB PO SCH (10:36)
[2023-04-28] MEDS: FERROUS SULFATE 325mg EC TAB PO SCH ×2 (10:36→17:14)
[2023-04-28] MEDS: CHOLECALCIFEROL (VITD3) 2,000 UNIT CAP/TAB PO SCH (10:36)
[2023-04-28] MEDS: CARBIDOPA W LEVODOPA 25/100mg TABLET PO SCH ×2 (10:36→21:48)
[2023-04-28] MEDS: SODIUM CHLOR 0.9% PF (SALINE LOCK) 10ML VIAL/SYR IV SCH ×2 (10:37→22:00)
[2023-04-28] MEDS: DIGOXIN 0.125 MG TAB PO SCH (10:38)
[2023-04-28] MEDS: FLUoxetine HCL 10 MG CAP PO SCH (10:39)
[2023-04-28] MEDS: ENOXAPARIN SOD 80 MG/0.8ML SYRINGE SC SCH ×2 (10:47→21:48)
[2023-04-28] MEDS: NOREPINEPHRINE 8 MG/250ML KIT 250 ML IV SCH (17:15)
[2023-04-28] MEDS: IRON SUCROSE COMPLEX 100 ML IV SCH (17:16)
[2023-04-28] MEDS: ATORVASTATIN 20 MG TAB PO SCH (21:48)
[2023-04-28] MEDS: TEMAZEPAM 15 MG CAP PO SCH (21:48)
[2023-04-28] MEDS: INSULIN LANTUS (GLARGINE) 1 /0.01ml (100units/ml) SC SCH (22:00)
[2023-04-29] VITALS (77 sets, daily range): BP systolic 85–110; BP diastolic 44–69; PULSE 60–104; RESP 14–34; TEMP 97.3–98.5; O2SAT 89–99
[2023-04-29] MEDS: InsuLIN REG 1unit/0.01ml Soln (100units/ml) SC SCH ×4 (06:26→22:00)
[2023-04-29] MEDS: ACCU-CHEK COMFORT CURVE STRIP VI SCH ×4 (06:26→22:00)
[2023-04-29] MEDS: AMIODARONE HCL 200 MG TAB PO SCH ×2 (06:58→17:12)
[2023-04-29] MEDS: SODIUM CHLOR 0.9% PF (SALINE LOCK) 10ML VIAL/SYR IV SCH ×2 (07:15→21:46)
[2023-04-29 07:46] LABS: Basophils # (auto) 0.1 10 ^3/uL (0-0.2); Basophils % (auto) 1.1 % (0.0-2.0); Eosinophils # (auto) 0.2 10 ^3/uL (0-0.8); Eosinophils % (auto) 4.3 % (0.0-7.0); Hematocrit 27.6 % (41.0-53.0); Hemoglobin 9.1 g/dL (13.5-17.5); Lymphocytes # (auto) 0.7 10 ^3/uL (0.4-5.4); Lymphocytes % (auto) 12.5 % (10.0-50.0); Mean Corpuscular Hemoglobin 29.8 pg (28.0-32.0); Mean Corpuscular Hgb Conc. 32.9 g/dL (32.0-36.0); Mean Corpuscular Volume 90.4 fL (80.0-100.0); Monocytes # (auto) 0.4 10 ^3/uL (0-1.3); Monocytes % (auto) 7.1 % (0.0-12.0); Neutrophils # (auto) 4.3 10 ^3/uL (1.6-8.6); Red Blood Cells 3.05 10^6/uL (4.5-5.90); Red Cell Distribution Width 14.3 % (11.8-14.3); White Blood Cell 5.7 10^3/uL (4.4-10.8)
[2023-04-29 08:04] LABS: Albumin 2.9 g/dL (3.2-4.8); Alkaline Phosphatase 49 U/L (46-116); Anion Gap 6 (5-15); Aspartate Aminotransferase 25 U/L (13-40); BUN/Creatinine Ratio 9.2 (10.0-20.0); Blood Urea Nitrogen 7 mg/dL (9-23); Calcium 8.8 mg/dL (8.5-10.1); Carbon Dioxide 27 mmol/L (20-30); Chloride 108 mmol/L (98-107); Glucose 95 mg/dL (74-106); Sodium 141 mmol/L (136-145)
[2023-04-29 08:05] LABS: Bilirubin, Total 0.4 mg/dL (0.2-1.0); Total Protein 4.7 g/dL (5.7-8.2)
[2023-04-29 08:06] LABS: Alanine Aminotransferase 9 U/L (7-40)
[2023-04-29] MEDS: PANTOPRAZOLE 40 MG TAB PO SCH (08:17)
[2023-04-29] MEDS: levoFLOXacin 500MG 100 ML IV SCH (08:17)
[2023-04-29] MEDS: ENOXAPARIN SOD 80 MG/0.8ML SYRINGE SC SCH ×2 (08:17→21:46)
[2023-04-29] MEDS: DIGOXIN 0.125 MG TAB PO SCH (08:17)
[2023-04-29] MEDS: FLUDROCORTISONE ACETATE 0.1 MG TAB PO SCH ×2 (08:17→21:46)
[2023-04-29] MEDS: CHOLECALCIFEROL (VITD3) 2,000 UNIT CAP/TAB PO SCH (08:17)
[2023-04-29] MEDS: FERROUS SULFATE 325mg EC TAB PO SCH ×2 (08:18→17:12)
[2023-04-29] MEDS: FLUoxetine HCL 10 MG CAP PO SCH (08:24)
[2023-04-29] MEDS: CARBIDOPA W LEVODOPA 25/100mg TABLET PO SCH ×2 (08:24→21:46)
[2023-04-29] MEDS: NOREPINEPHRINE 8 MG/250ML KIT 250 ML IV SCH (10:38)
[2023-04-29] MEDS: IRON SUCROSE COMPLEX 100 ML IV SCH (12:00)
[2023-04-29] MEDS: ATORVASTATIN 20 MG TAB PO SCH (21:46)
[2023-04-29] MEDS: TEMAZEPAM 15 MG CAP PO SCH (21:46)
[2023-04-29] MEDS: INSULIN LANTUS (GLARGINE) 1 /0.01ml (100units/ml) SC SCH (21:49)
[2023-04-30] VITALS (18 sets, daily range): BP systolic 93–123; BP diastolic 30–75; PULSE 78–97; RESP 16–26; TEMP 97.4–98.5; O2SAT 92–97
[2023-04-30 05:26] LABS: Basophils # (auto) 0.1 10 ^3/uL (0-0.2); Eosinophils # (auto) 0.3 10 ^3/uL (0-0.8); Hematocrit 29.7 % (41.0-53.0); Hemoglobin 9.7 g/dL (13.5-17.5); Lymphocytes # (auto) 0.9 10 ^3/uL (0.4-5.4); Mean Corpuscular Hemoglobin 29.9 pg (28.0-32.0); Mean Corpuscular Hgb Conc. 32.8 g/dL (32.0-36.0); Mean Corpuscular Volume 91.3 fL (80.0-100.0); Monocytes # (auto) 0.4 10 ^3/uL (0-1.3); Monocytes % (auto) 6.3 % (0.0-12.0); Neutrophils # (auto) 4.7 10 ^3/uL (1.6-8.6); Neutrophils % (auto) 74.7 % (37.0-80.0); Nucleated Red Blood Cells % 0.1 %; Red Blood Cells 3.25 10^6/uL (4.5-5.90); Red Cell Distribution Width 14.7 % (11.8-14.3); White Blood Cell 6.3 10^3/uL (4.4-10.8)
[2023-04-30 05:33] LABS: Anion Gap 4 (5-15); Carbon Dioxide 27 mmol/L (20-30); Chloride 108 mmol/L (98-107); Potassium 4.1 mmol/L (3.5-5.1); Sodium 139 mmol/L (136-145)
[2023-04-30 05:35] LABS: Calcium 8.6 mg/dL (8.7-10.4)
[2023-04-30 05:39] LABS: BUN/Creatinine Ratio 7.2 (10.0-20.0); Blood Urea Nitrogen 6 mg/dL (9-23); Glucose 100 mg/dL (74-106)
[2023-04-30] MEDS: ACCU-CHEK COMFORT CURVE STRIP VI SCH ×4 (07:00→21:47)
[2023-04-30] MEDS: InsuLIN REG 1unit/0.01ml Soln (100units/ml) SC SCH ×4 (07:00→22:02)
[2023-04-30] MEDS: AMIODARONE HCL 200 MG TAB PO SCH ×2 (07:38→17:35)
[2023-04-30] MEDS: levoFLOXacin 500MG 100 ML IV SCH (09:59)
[2023-04-30] MEDS: FLUDROCORTISONE ACETATE 0.1 MG TAB PO SCH ×2 (09:59→21:41)
[2023-04-30] MEDS: FERROUS SULFATE 325mg EC TAB PO SCH ×2 (10:00→17:35)
[2023-04-30] MEDS: ENOXAPARIN SOD 80 MG/0.8ML SYRINGE SC SCH ×2 (10:00→21:42)
[2023-04-30] MEDS: CARBIDOPA W LEVODOPA 25/100mg TABLET PO SCH ×2 (10:00→21:42)
[2023-04-30] MEDS: DIGOXIN 0.125 MG TAB PO SCH (10:01)
[2023-04-30] MEDS: CHOLECALCIFEROL (VITD3) 2,000 UNIT CAP/TAB PO SCH (10:01)
[2023-04-30] MEDS: SODIUM CHLOR 0.9% PF (SALINE LOCK) 10ML VIAL/SYR IV SCH ×2 (10:03→21:47)
[2023-04-30] MEDS: PANTOPRAZOLE 40 MG TAB PO SCH (10:09)
[2023-04-30] MEDS: NOREPINEPHRINE 8 MG/250ML KIT 250 ML IV SCH (14:29)
[2023-04-30] MEDS: FLUoxetine HCL 10 MG CAP PO SCH (15:21)
[2023-04-30] MEDS: IRON SUCROSE COMPLEX 100 ML IV SCH (15:21)
[2023-04-30] MEDS: ATORVASTATIN 20 MG TAB PO SCH (21:40)
[2023-04-30] MEDS: TEMAZEPAM 15 MG CAP PO SCH (21:41)
[2023-04-30] MEDS: INSULIN LANTUS (GLARGINE) 1 /0.01ml (100units/ml) SC SCH (21:58)
[2023-05-01] VITALS (8 sets, daily range): BP systolic 97–121; BP diastolic 39–60; PULSE 77–95; RESP 18–20; TEMP 96.8–98.5; O2SAT 94–96
[2023-05-01] MEDS: AMIODARONE HCL 200 MG TAB PO SCH ×2 (05:46→17:16)
[2023-05-01] MEDS: ACCU-CHEK COMFORT CURVE STRIP VI SCH ×4 (06:55→21:56)
[2023-05-01] MEDS: InsuLIN REG 1unit/0.01ml Soln (100units/ml) SC SCH ×4 (06:55→21:57)
[2023-05-01] MEDS: levoFLOXacin 500MG 100 ML IV SCH (09:09)
[2023-05-01] MEDS: PANTOPRAZOLE 40 MG TAB PO SCH (09:09)
[2023-05-01] MEDS: DIGOXIN 0.125 MG TAB PO SCH (09:09)
[2023-05-01] MEDS: FLUoxetine HCL 10 MG CAP PO SCH (09:09)
[2023-05-01] MEDS: CARBIDOPA W LEVODOPA 25/100mg TABLET PO SCH ×2 (09:09→21:55)
[2023-05-01] MEDS: CHOLECALCIFEROL (VITD3) 2,000 UNIT CAP/TAB PO SCH (09:10)
[2023-05-01] MEDS: FLUDROCORTISONE ACETATE 0.1 MG TAB PO SCH ×2 (09:10→17:15)
[2023-05-01] MEDS: FERROUS SULFATE 325mg EC TAB PO SCH ×2 (09:10→17:16)
[2023-05-01] MEDS: ENOXAPARIN SOD 80 MG/0.8ML SYRINGE SC SCH ×2 (10:00→21:54)
[2023-05-01] MEDS: SODIUM CHLOR 0.9% PF (SALINE LOCK) 10ML VIAL/SYR IV SCH ×2 (10:00→21:56)
[2023-05-01] MEDS: IRON SUCROSE COMPLEX 100 ML IV SCH (12:00)
[2023-05-01] MEDS: ATORVASTATIN 20 MG TAB PO SCH (21:55)
[2023-05-01] MEDS: TEMAZEPAM 15 MG CAP PO SCH (21:55)
[2023-05-01] MEDS: INSULIN LANTUS (GLARGINE) 1 /0.01ml (100units/ml) SC SCH (22:00)
[2023-05-02] VITALS (7 sets, daily range): BP systolic 115–140; BP diastolic 49–60; PULSE 81–90; RESP 17–20; TEMP 97.3–97.9; O2SAT 92–96
[2023-05-02] MEDS: ACCU-CHEK COMFORT CURVE STRIP VI SCH ×3 (06:04→17:00)
[2023-05-02] MEDS: InsuLIN REG 1unit/0.01ml Soln (100units/ml) SC SCH ×3 (06:04→17:00)
[2023-05-02] MEDS: PANTOPRAZOLE 40 MG TAB PO SCH (09:39)
[2023-05-02] MEDS: AMIODARONE HCL 200 MG TAB PO SCH (09:41)
[2023-05-02] MEDS: CARBIDOPA W LEVODOPA 25/100mg TABLET PO SCH (09:42)
[2023-05-02] MEDS: FLUoxetine HCL 10 MG CAP PO SCH (09:42)
[2023-05-02] MEDS: FERROUS SULFATE 325mg EC TAB PO SCH (09:42)
[2023-05-02] MEDS: FLUDROCORTISONE ACETATE 0.1 MG TAB PO SCH (09:42)
[2023-05-02] MEDS: DIGOXIN 0.125 MG TAB PO SCH (09:43)
[2023-05-02] MEDS: CHOLECALCIFEROL (VITD3) 2,000 UNIT CAP/TAB PO SCH (09:43)
[2023-05-02] MEDS: SODIUM CHLOR 0.9% PF (SALINE LOCK) 10ML VIAL/SYR IV SCH (09:43)
[2023-05-02] MEDS: ENOXAPARIN SOD 80 MG/0.8ML SYRINGE SC SCH (09:43)
[2023-05-02] MEDS: IRON SUCROSE COMPLEX 100 ML IV SCH (12:05)
== END 2023-05-02 17:02 | disposition home or self-care (01) | DRG 177 ==
LOC: ER 07:25 → TELE 10:49 → TELE-WESTW 10:49 → ICU WEST 04-23 21:53 → DOU IN ICU 04-27 12:03 → ICU CENTRL 04-28 06:24 → TELE-WESTW 04-30 17:10
PROVIDERS: ADMIT Family Medicine; ATTEND Internal Medicine Cardiovascular Disease
PROC: 02HV33Z Insertion of Infusion Device into Superior Vena Cava, Percutaneous Approach (ICD-10-PCS; 2023-04-24)
PROC: B548ZZA Ultrasonography of Superior Vena Cava, Guidance (ICD-10-PCS; 2023-04-24)
PROC: 30233N1 Transfusion of Nonautologous Red Blood Cells into Peripheral Vein, Percutaneous Approach (ICD-10-PCS; 2023-04-26)
PROC: 4B02XTZ Measurement of Cardiac Defibrillator, External Approach (ICD-10-PCS; principal; 2023-04-27)
DX: J15.69 Pneumonia due to other Gram-negative bacteria (principal); I26.99 Other pulmonary embolism without acute cor pulmonale; I50.23 Acute on chronic systolic (congestive) heart failure; J96.21 Acute and chronic respiratory failure with hypoxia; J44.0 Chronic obstructive pulmonary disease with (acute) lower respiratory infection; E87.1 Hypo-osmolality and hyponatremia; D68.69 Other thrombophilia; J15.9 Unspecified bacterial pneumonia; I11.0 Hypertensive heart disease with heart failure; E66.9 Obesity, unspecified; G20.A1 Parkinson's disease without dyskinesia, without mention of fluctuations; E86.1 Hypovolemia; F32.A Depression, unspecified; E11.9 Type 2 diabetes mellitus without complications; E78.5 Hyperlipidemia, unspecified; I25.10 Atherosclerotic heart disease of native coronary artery without angina pectoris; D64.9 Anemia, unspecified; Z79.899 Other long term (current) drug therapy; Z85.46 Personal history of malignant neoplasm of prostate; Z86.711 Personal history of pulmonary embolism; Z88.0 Allergy status to penicillin; Z95.5 Presence of coronary angioplasty implant and graft; Z95.810 Presence of automatic (implantable) cardiac defibrillator; Z71.3 Dietary counseling and surveillance; Z68.33 Body mass index [BMI] 33.0-33.9, adult
CPT/HCPCS: 36415; 36569; 71045; 71260; 80048; 80053; 80162; 80202; 81001; 82728; 82962; 83540; 83550; 83880; 84484; 85025; 85610; 85730; 86850; 86900; 86901; 86920; 87040; 87081; 87086; 87426; 87804; 93005; 93306; 94640; 97110; 97116; 97163; 97530; 99291; G0378; J0692; J1756; J1815; J1956; J2405; J7060; P9047

== ENCOUNTER → 2023-10-15 | Outpatient (CLI) | payer MEDICARE ==
[~2023-10-15] MED LIST changes: -VENL150T19 PO; +VENL150T34 PO
[2023-10-15 12:19] VITALS: BP 117/83; PULSE 82; RESP 16; O2SAT 93
[2023-10-15] MEDS: BUMETANIDE 2.5mg/10ml (0.25 mg/ml) INJ IV ONE (12:19)
[2023-10-15] MEDS: BUMETANIDE INJECTION 10 ML ONE (12:27)
[2023-10-15 12:55] VITALS: BP 110/73; PULSE 95; RESP 20; O2SAT 93
== END | disposition home or self-care (01) ==
LOC: CHF HDHVI 12:20
PROVIDERS: ATTEND Internal Medicine Cardiovascular Disease
DX: R60.9 Edema, unspecified (principal); I25.10 Atherosclerotic heart disease of native coronary artery without angina pectoris; J44.9 Chronic obstructive pulmonary disease, unspecified; F32.A Depression, unspecified; E78.5 Hyperlipidemia, unspecified; I11.0 Hypertensive heart disease with heart failure; I50.9 Heart failure, unspecified; E11.9 Type 2 diabetes mellitus without complications; Z85.46 Personal history of malignant neoplasm of prostate; Z86.711 Personal history of pulmonary embolism; Z95.810 Presence of automatic (implantable) cardiac defibrillator; Z79.899 Other long term (current) drug therapy
CPT/HCPCS: 96374; G0463

== ENCOUNTER → 2023-10-23 | Outpatient (CLI) | payer MEDICARE | END | disposition home or self-care (01) | LOC: Rad HDHVI 07:52 | PROVIDERS: ATTEND Internal Medicine Cardiovascular Disease | DX: I34.0 Nonrheumatic mitral (valve) insufficiency (principal); I25.5 Ischemic cardiomyopathy | CPT/HCPCS: 93306 ==

== ENCOUNTER → 2023-10-26 | Outpatient (CLI) | payer MEDICARE ==
[~2023-10-26] VITALS: Ht 177.8 cm; Wt 94.3 kg
[~2023-10-26] MED LIST changes: +ADENOSINE 79 MG in GIVE UN-DILUTED 0 ML IV ONE; +ADENOSINE 90 MG/30 ML INJ IV ONE; +AMIO400T7 PO; +BUME2TAB5 PO; +COEN150C4 PO; +DIGO0.12 PO; +HYDR-4902 PO; +LEVO100T3 PO; +POM; +POM PO; +[UNRECOGNIZED DRUG - CODE] PO
== END | disposition home or self-care (01) ==
LOC: Rad HDHVI 08:54
PROVIDERS: ATTEND Internal Medicine Cardiovascular Disease
DX: I25.10 Atherosclerotic heart disease of native coronary artery without angina pectoris (principal); I25.5 Ischemic cardiomyopathy; I11.0 Hypertensive heart disease with heart failure; I50.43 Acute on chronic combined systolic (congestive) and diastolic (congestive) heart failure; I48.0 Paroxysmal atrial fibrillation; E11.9 Type 2 diabetes mellitus without complications; E78.00 Pure hypercholesterolemia, unspecified; I80.9 Phlebitis and thrombophlebitis of unspecified site; R06.02 Shortness of breath; Z82.49 Family history of ischemic heart disease and other diseases of the circulatory system; Z95.0 Presence of cardiac pacemaker
CPT/HCPCS: 78452; 93005; 96374; 96375; A9500; J0153

== ENCOUNTER → 2023-11-02 | Outpatient (CLI) | payer MEDICARE ==
[2023-11-02] VITALS (12 sets, daily range): BP systolic 96–119; BP diastolic 67–89; PULSE 80–87; RESP 18; O2SAT 93
[~2023-11-02] MED LIST changes: -ADENOSINE 79 MG in GIVE UN-DILUTED 0 ML IV ONE; -ADENOSINE 90 MG/30 ML INJ IV ONE; -COEN150C4 PO; -DIGO0.12 PO; -HYDR-4902 PO; -[UNRECOGNIZED DRUG - CODE] PO
[2023-11-02] MEDS: DOBUTamine 1000MCG/ML 250 ML IV ONE ×2 (11:50→12:34)
== END | disposition home or self-care (01) ==
LOC: Rad HDHVI 11:25
PROVIDERS: ATTEND Internal Medicine Cardiovascular Disease
DX: I11.0 Hypertensive heart disease with heart failure (principal); I50.43 Acute on chronic combined systolic (congestive) and diastolic (congestive) heart failure; J90 Pleural effusion, not elsewhere classified; R06.02 Shortness of breath; I25.10 Atherosclerotic heart disease of native coronary artery without angina pectoris; I25.5 Ischemic cardiomyopathy; I48.0 Paroxysmal atrial fibrillation; J44.9 Chronic obstructive pulmonary disease, unspecified; E11.9 Type 2 diabetes mellitus without complications; E78.00 Pure hypercholesterolemia, unspecified; Z79.899 Other long term (current) drug therapy; Z85.46 Personal history of malignant neoplasm of prostate; Z95.810 Presence of automatic (implantable) cardiac defibrillator
CPT/HCPCS: 71046; 96365; 96366; G0463; J1250

== ENCOUNTER → 2023-11-06 | Outpatient (CLI) | payer MEDICARE ==
[2023-11-06] VITALS (12 sets, daily range): BP systolic 103–121; BP diastolic 51–79; PULSE 75–86; RESP 18; O2SAT 93
[2023-11-06] MEDS: DOBUTamine 1000MCG/ML 250 ML IV ONE ×2 (09:30→09:37)
== END | disposition home or self-care (01) ==
LOC: CHF HDHVI 09:39
PROVIDERS: ATTEND Internal Medicine Cardiovascular Disease
DX: I11.0 Hypertensive heart disease with heart failure (principal); I50.43 Acute on chronic combined systolic (congestive) and diastolic (congestive) heart failure; I25.10 Atherosclerotic heart disease of native coronary artery without angina pectoris; I25.5 Ischemic cardiomyopathy; I48.0 Paroxysmal atrial fibrillation; E11.9 Type 2 diabetes mellitus without complications; E78.00 Pure hypercholesterolemia, unspecified; Z85.46 Personal history of malignant neoplasm of prostate; Z95.810 Presence of automatic (implantable) cardiac defibrillator
CPT/HCPCS: 96365; 96366; G0463; J1250

== ENCOUNTER 2023-11-08 07:07 | Day surgery (SDC) | payer MEDICARE ==
[2023-11-07 15:33] LABS: Basophils # (auto) 0 10 ^3/uL (0-0.2); Basophils % (auto) 0.7 % (0.0-2.0); Eosinophils # (auto) 0.1 10 ^3/uL (0-0.8); Eosinophils % (auto) 2.3 % (0.0-7.0); Hematocrit 37.6 % (41.0-53.0); Hemoglobin 12.8 g/dL (13.5-17.5); Lymphocytes # (auto) 0.6 10 ^3/uL (0.4-5.4); Lymphocytes % (auto) 10.8 % (10.0-50.0); Mean Corpuscular Hemoglobin 31.8 pg (28.0-32.0); Mean Corpuscular Hgb Conc. 33.9 g/dL (32.0-36.0); Mean Corpuscular Volume 93.7 fL (80.0-100.0); Monocytes # (auto) 0.5 10 ^3/uL (0-1.3); Monocytes % (auto) 9.2 % (0.0-12.0); Neutrophils # (auto) 4.3 10 ^3/uL (1.6-8.6); Nucleated Red Blood Cells % 0.1 %; Red Blood Cells 4.02 10^6/uL (4.5-5.90); Red Cell Distribution Width 15.2 % (11.8-14.3); White Blood Cell 5.6 10^3/uL (4.4-10.8)
[2023-11-07 15:58] LABS: INR 1.4 (0.9-1.15); Partial Thromboplastin Time 31.3 SEC (24.5-34.5); Prothrombin Time 14.5 sec (9.3-11.8)
[2023-11-07 16:02] LABS: Chloride 95 mmol/L (98-107); Potassium 3.1 mmol/L (3.5-5.1); Sodium 136 mmol/L (136-145)
[2023-11-07 16:03] LABS: Anion Gap 10 (5-15); Carbon Dioxide 31 mmol/L (20-30)
[2023-11-07 16:04] LABS: Calcium 9.6 mg/dL (8.7-10.4)
[2023-11-07 16:08] LABS: Glucose 90 mg/dL (74-106)
[2023-11-07 16:09] LABS: BUN/Creatinine Ratio 25.9 (10.0-20.0); Blood Urea Nitrogen 38 mg/dL (9-23)
[~2023-11-08] VITALS: Ht 177.8 cm; Wt 94.3 kg
[2023-11-08] VITALS (9 sets, daily range): BP systolic 87–101; BP diastolic 50–71; PULSE 70–77; RESP 12–22; O2SAT 87–94
[~2023-11-08 07:07] MED LIST changes: -ALBUAER3 IN; -CARB-118 PO; -CARV3.1240 PO; -CLOP75TA28 PO; -DOXY-346 PO; -FERR325T24 PO; -FURO40TA4 PO; -HYDR-4798 PO; -SACU1TAB PO; -VENL150T34 PO
[2023-11-08] MEDS: POTASSIUM EFFERVESENT TAB 25 MEQ PO ONE (09:22)
[2023-11-08 11:25] LABS: Body Fluid Polymorphonuclear 45 % (0-25); Body Fluid Red Blood Cells 295 CUMM (0-2000); Body Fluid White Blood Cells 150 CUMM (0-200)
[2023-11-08] MEDS: ALBUTEROL SULF 2.5 MG/0.5ML(0.5%) NEB SOLN NEB ONE (11:45)
[2023-11-08] MEDS: ALBUTEROL SULF 2.5 MG/0.5ML(0.5%) NEB SOLN ONE (11:53)
[2023-11-13 06:42] LABS: Albumin, Body Fluid 2.3 g/dL (Not Estab.); Protein, Body Fluid 3.3 g/dL (.)
[2023-11-13] MEDS ORDERED: DIGO0.12 PO (12:11)
[2023-11-13] MEDS ORDERED: COEN150C4 PO (12:11)
[2023-11-13] MEDS ORDERED: [UNRECOGNIZED DRUG - CODE] PO (12:11)
[2023-11-13] MEDS ORDERED: HYDR-4902 PO (12:11)
== END 2023-11-08 12:22 | disposition home or self-care (01) ==
LOC: CATH 07:07
PROVIDERS: ATTEND Internal Medicine Cardiovascular Disease
DX: R07.9 Chest pain, unspecified (principal); J90 Pleural effusion, not elsewhere classified; J93.9 Pneumothorax, unspecified; I50.9 Heart failure, unspecified; I25.5 Ischemic cardiomyopathy; I48.91 Unspecified atrial fibrillation; Z79.899 Other long term (current) drug therapy; Z95.810 Presence of automatic (implantable) cardiac defibrillator
CPT/HCPCS: 32555; 36415; 71045; 80048; 85025; 85610; 85730; 87205; 89051; 94640

== ENCOUNTER → 2023-11-12 | Outpatient (CLI) | payer MEDICARE ==
[~2023-11-12] MED LIST changes: +COEN150C4 PO; +DIGO0.12 PO; +HYDR-4902 PO; +[UNRECOGNIZED DRUG - CODE] PO
== END | disposition home or self-care (01) ==
LOC: Rad HDHVI 09:59
PROVIDERS: ATTEND Internal Medicine Cardiovascular Disease
DX: J90 Pleural effusion, not elsewhere classified (principal); I51.7 Cardiomegaly
CPT/HCPCS: 71046

== ENCOUNTER 2023-11-15 08:10 | Day surgery (SDC) | payer MEDICARE ==
[~2023-11-15] VITALS: Ht 177.8 cm; Wt 94.3 kg
[~2023-11-15 08:10] MED LIST changes: -COEN30CA10 PO
== END 2023-11-15 15:05 | disposition home or self-care (01) ==
LOC: CATH 08:10
PROVIDERS: ATTEND Internal Medicine Cardiovascular Disease
DX: J90 Pleural effusion, not elsewhere classified (principal); J93.9 Pneumothorax, unspecified; I11.0 Hypertensive heart disease with heart failure; I50.9 Heart failure, unspecified; J44.9 Chronic obstructive pulmonary disease, unspecified; Z95.810 Presence of automatic (implantable) cardiac defibrillator; Z85.46 Personal history of malignant neoplasm of prostate; Z87.891 Personal history of nicotine dependence; Z81.1 Family history of alcohol abuse and dependence; Z82.49 Family history of ischemic heart disease and other diseases of the circulatory system; Z88.0 Allergy status to penicillin
CPT/HCPCS: 32554; 71045; 99152

== ENCOUNTER → 2023-11-28 | Outpatient (CLI) | payer MEDICARE ==
[~2023-11-28] MED LIST changes: +CARB25TA79 PO; +HYDR-4798 PO
== END | disposition home or self-care (01) ==
LOC: Rad HDHVI 15:59
PROVIDERS: ATTEND Internal Medicine Cardiovascular Disease
DX: R06.02 Shortness of breath (principal)
CPT/HCPCS: 71046

== ENCOUNTER 2023-11-30 11:05 | Inpatient (IN) | payer MEDICARE ==
[~2023-11-30] VITALS: Ht 177.8 cm; Wt 92.3 kg
[2023-11-30] VITALS (7 sets, daily range): BP systolic 94–108; BP diastolic 61–70; PULSE 69–86; RESP 16–21; TEMP 97.6–98.3; O2SAT 95–99
[~2023-11-30 11:05] MED LIST changes: -CARB25TA79 PO; -HYDR-4798 PO
[2023-11-30 12:10] LABS: Basophils # (auto) 0 10 ^3/uL (0-0.2); Basophils % (auto) 0.6 % (0.0-2.0); Eosinophils # (auto) 0.1 10 ^3/uL (0-0.8); Hematocrit 39.8 % (41.0-53.0); Hemoglobin 13.1 g/dL (13.5-17.5); Lymphocytes # (auto) 0.5 10 ^3/uL (0.4-5.4); Lymphocytes % (auto) 7.8 % (10.0-50.0); Mean Corpuscular Hemoglobin 30.9 pg (28.0-32.0); Mean Corpuscular Volume 93.7 fL (80.0-100.0); Monocytes # (auto) 0.5 10 ^3/uL (0-1.3); Monocytes % (auto) 8.5 % (0.0-12.0); Neutrophils # (auto) 4.7 10 ^3/uL (1.6-8.6); Neutrophils % (auto) 81.1 % (37.0-80.0); Platelet Count (auto) 310 10^3/uL (140-450); Red Blood Cells 4.25 10^6/uL (4.5-5.90); White Blood Cell 5.8 10^3/uL (4.4-10.8)
[2023-11-30 12:25] LABS: INR 1.26 (0.9-1.15); Partial Thromboplastin Time 30.6 SEC (24.5-34.5); Prothrombin Time 13.1 sec (9.3-11.8)
[2023-11-30 12:31] LABS: Chloride 96 mmol/L (98-107); Sodium 136 mmol/L (136-145)
[2023-11-30 12:32] LABS: Anion Gap 3 (5-15); Calcium 9.6 mg/dL (8.7-10.4); Carbon Dioxide 37 mmol/L (20-30)
[2023-11-30 12:37] LABS: BUN/Creatinine Ratio 15.3 (10.0-20.0); Blood Urea Nitrogen 18 mg/dL (9-23); Glucose 120 mg/dL (74-106)
[2023-11-30] MEDS ORDERED: NITROGLYCERIN 0.4 MG SL TAB SL PRN (13:45)
[2023-11-30] MEDS ORDERED: MORPHINE SULFATE INJ 2 MG/ml SYRG IV PRN (13:45)
[2023-11-30] MEDS ORDERED: CARB25TA79 PO (13:52)
[2023-11-30] MEDS ORDERED: HYDR-4798 PO (13:52)
[2023-11-30] MEDS ORDERED: DEXTROSE (50%) 50ML SYRG IV PRN (14:00)
[2023-11-30] MEDS: POTASSIUM CHL 20 Meq TABLET PO ONE (15:31)
[2023-11-30] MEDS: InsuLIN REG 1unit/0.01ml Soln (100units/ml) SC SCH (17:00)
[2023-11-30] MEDS: ACCU-CHEK COMFORT CURVE STRIP VI SCH (17:14)
[2023-11-30] MEDS ORDERED: HYDROcodone-ACET 10/325MG TAB PO SCH (18:00)
[2023-11-30] MEDS: TEMAZEPAM 15 MG CAP PO PRN (21:16)
[2023-11-30] MEDS: ATORVASTATIN 20 MG TAB PO SCH (21:16)
[2023-11-30] MEDS: CARBIDOPA W LEVODOPA 25/100mg TABLET PO SCH (21:16)
[2023-12-01] VITALS (7 sets, daily range): BP systolic 89–96; BP diastolic 50–69; PULSE 63–87; RESP 18; TEMP 97.8–99; O2SAT 92–97
[2023-12-01] MEDS: LIDOCAINE W/ EPINEPHRINE 1% 20ML VIAL ONE (09:04)
[2023-12-01] MEDS: BUPIVACAINE 0.25% INJ 50ML VIAL ONE (09:04)
[2023-12-01] MEDS ORDERED: GLYCOPYRROLATE 0.2 MG/ML 1ML VIAL ONE (09:06)
[2023-12-01] MEDS ORDERED: ONDANSETRON HCL 4 MG/2 ML VIAL ONE (09:06)
[2023-12-01] MEDS ORDERED: KETAMINE 50mg/ML 1ml syringe ONE (09:06)
[2023-12-01] MEDS: levoFLOXacin 500MG 100 ML IV ONE (09:15)
[2023-12-01] MEDS: FLUoxetine HCL 10 MG CAP PO SCH (10:00)
[2023-12-01] MEDS ORDERED: AMIODARONE HCL 200 MG TAB PO SCH (10:00)
[2023-12-01] MEDS ORDERED: ACETAMINOPHEN/CODEINE#3 (300/30mg) TAB PO PRN (10:00)
[2023-12-01] MEDS: BUMETANIDE 1 MG TAB PO SCH (10:00)
[2023-12-01] MEDS ORDERED: HYDROmorphone HCL 2 MG/ML VL/or syr IV PRN (10:00)
[2023-12-01] MEDS: ACCU-CHEK COMFORT CURVE STRIP VI ONE (10:15)
[2023-12-01] MEDS: DIGOXIN 0.125 MG TAB PO SCH (12:45)
[2023-12-01] MEDS: POTASSIUM CHL 20 Meq TABLET PO SCH (12:46)
[2023-12-01] MEDS: levoFLOXacin 500MG 100 ML IV SCH (12:46)
[2023-12-02] VITALS (8 sets, daily range): BP systolic 86–105; BP diastolic 45–72; PULSE 18–74; RESP 17–20; TEMP 97.5–98.5; O2SAT 94–98
[2023-12-02] MEDS: ALPRAZolam 0.25 MG TAB PO PRN (21:22)
[2023-12-03] VITALS (8 sets, daily range): BP systolic 0–99; BP diastolic 53–70; PULSE 18–84; RESP 17–20; TEMP 97.6–98.6; O2SAT 90–99
[2023-12-04] VITALS (7 sets, daily range): BP systolic 90–104; BP diastolic 54–68; PULSE 16–82; RESP 16–98; TEMP 97.5–98.3; O2SAT 96–98
[2023-12-04] MEDS: DOCUSATE SOD 100 MG CAP PO PRN (15:55)
[2023-12-05] VITALS (8 sets, daily range): BP systolic 84–96; BP diastolic 57–66; PULSE 62–90; RESP 16–20; TEMP 97.4–98.7; O2SAT 93–98
[2023-12-05 09:08] LABS: Basophils # (auto) 0 10 ^3/uL (0-0.2); Basophils % (auto) 0.5 % (0.0-2.0); Eosinophils # (auto) 0.2 10 ^3/uL (0-0.8); Eosinophils % (auto) 3.3 % (0.0-7.0); Hematocrit 36.5 % (41.0-53.0); Hemoglobin 11.9 g/dL (13.5-17.5); Lymphocytes # (auto) 0.4 10 ^3/uL (0.4-5.4); Lymphocytes % (auto) 6.9 % (10.0-50.0); Mean Corpuscular Hemoglobin 30.4 pg (28.0-32.0); Mean Corpuscular Hgb Conc. 32.6 g/dL (32.0-36.0); Mean Corpuscular Volume 93.1 fL (80.0-100.0); Monocytes # (auto) 0.8 10 ^3/uL (0-1.3); Monocytes % (auto) 12.7 % (0.0-12.0); Neutrophils # (auto) 4.7 10 ^3/uL (1.6-8.6); Neutrophils % (auto) 76.6 % (37.0-80.0); Nucleated Red Blood Cells % 0.1 %; Platelet Count (auto) 248 10^3/uL (140-450); Red Blood Cells 3.92 10^6/uL (4.5-5.90); Red Cell Distribution Width 14.8 % (11.8-14.3); White Blood Cell 6.2 10^3/uL (4.4-10.8)
[2023-12-05 09:25] LABS: Alanine Aminotransferase 13 U/L (7-40); Albumin 3.3 g/dL (3.2-4.8); Alkaline Phosphatase 67 U/L (46-116); Anion Gap 2 (5-15); Aspartate Aminotransferase 45 U/L (13-40); BUN/Creatinine Ratio 12.7 (10.0-20.0); Blood Urea Nitrogen 16 mg/dL (9-23); Carbon Dioxide 35 mmol/L (20-30); Chloride 98 mmol/L (98-107); Glucose 116 mg/dL (74-106); Sodium 135 mmol/L (136-145)
[2023-12-05 09:26] LABS: Total Protein 5.3 g/dL (5.7-8.2)
[2023-12-06] VITALS (10 sets, daily range): BP systolic 91–133; BP diastolic 58–75; PULSE 69–80; RESP 16–19; TEMP 97.6–100.2; O2SAT 92–99
[2023-12-06 05:33] LABS: INR 1.25 (0.9-1.15)
[2023-12-06] MEDS ORDERED: GLYCOPYRROLATE 0.2 MG/ML 1ML VIAL ONE (09:04)
[2023-12-06] MEDS ORDERED: SODIUM CHLORIDE LOCK 10 ML ONE (09:04)
[2023-12-06] MEDS ORDERED: LIDOCAINE 2%HCL (LOCAL ANESTH.) INJ 20ML MDV ONE (09:04)
[2023-12-06] MEDS ORDERED: EPINEPHrine HCL 1 MG/1 ML AMP ONE (09:04)
[2023-12-06] MEDS ORDERED: FLUMAZENIL 0.1 MG/ML INJ 10ML MDV IV ONE (09:04)
[2023-12-06] MEDS ORDERED: LIDOCAINE 2% JELLY 11ml (GLYDO) ONE (09:04)
[2023-12-06] MEDS ORDERED: NALOXONE HCL 0.4 MG/ML VIAL ONE (09:04)
[2023-12-06] MEDS: fentaNYL CITRATE 100 MCG/2 ML VL ONE (10:24)
[2023-12-06] MEDS: MIDAZOLAM HCL 5 MG/ML-1ML VIAL ONE (10:24)
[2023-12-06] MEDS: MIDAZOLAM HCL 2MG/2ML 2ml VIAL (1mg/ml) ONE (10:27)
[2023-12-06] MEDS: IOHEXOL 350 MG/ML 100ML IJ ONE (12:08)
[2023-12-07] VITALS (7 sets, daily range): BP systolic 100–113; BP diastolic 59–72; PULSE 63–80; RESP 14–19; TEMP 97.5–98.3; O2SAT 93–96
[2023-12-07 05:00] LABS: Rapid Influenza A Negative (Negative); Rapid Influenza B Negative (Negative)
[2023-12-07 05:02] LABS: COVID19 ANTIGEN SOFIA FIA NEGATIVE (NEGATIVE)
[2023-12-07 14:57] LABS: Body Fluid Red Blood Cells 98 CUMM (0-2000); Body Fluid White Blood Cells 58 CUMM (0-200)
[2023-12-07 14:58] LABS: Body Fluid Polymorphonuclear 10 % (0-25)
[2023-12-08] VITALS (7 sets, daily range): BP systolic 80–97; BP diastolic 20–58; PULSE 66–84; RESP 18–22; TEMP 97.7–98.7; O2SAT 94–98
[2023-12-08] MEDS: AMIODARONE HCL 200 MG TAB PO SCH (10:05)
[2023-12-08 13:07] LABS: Protein, Body Fluid 1.9 g/dL (.)
[2023-12-09] VITALS (9 sets, daily range): BP systolic 86–102; BP diastolic 53–72; PULSE 60–78; RESP 17–22; TEMP 97.7–98.6; O2SAT 91–96
[2023-12-09 18:56] LABS: Albumin 3.2 g/dL (3.2-4.8); Alkaline Phosphatase 89 U/L (46-116); Anion Gap 3 (5-15); Aspartate Aminotransferase 50 U/L (13-40); BUN/Creatinine Ratio 12.2 (10.0-20.0); Bilirubin, Total 0.7 mg/dL (0.2-1.0); Blood Urea Nitrogen 18 mg/dL (9-23); Calcium 8.4 mg/dL (8.7-10.4); Carbon Dioxide 32 mmol/L (20-30); Chloride 101 mmol/L (98-107); Glucose 122 mg/dL (74-106); Potassium 3.9 mmol/L (3.5-5.1); Sodium 136 mmol/L (136-145); Total Protein 5.1 g/dL (5.7-8.2)
[2023-12-09 19:02] LABS: Alanine Aminotransferase < 9 U/L (7-40)
[2023-12-10] VITALS (9 sets, daily range): BP systolic 86–102; BP diastolic 50–69; PULSE 60–76; RESP 16–20; TEMP 97.4–98.3; O2SAT 94–98
[2023-12-10 14:45] LABS: Basophils # (auto) 0 10 ^3/uL (0-0.2); Basophils % (auto) 0.4 % (0.0-2.0); Eosinophils # (auto) 0.2 10 ^3/uL (0-0.8); Eosinophils % (auto) 2.2 % (0.0-7.0); Hematocrit 36.8 % (41.0-53.0); Hemoglobin 12.2 g/dL (13.5-17.5); Lymphocytes # (auto) 0.5 10 ^3/uL (0.4-5.4); Lymphocytes % (auto) 6.9 % (10.0-50.0); Mean Corpuscular Hemoglobin 30.7 pg (28.0-32.0); Mean Corpuscular Hgb Conc. 33.1 g/dL (32.0-36.0); Mean Corpuscular Volume 92.8 fL (80.0-100.0); Monocytes # (auto) 0.9 10 ^3/uL (0-1.3); Monocytes % (auto) 12.7 % (0.0-12.0); Neutrophils # (auto) 5.8 10 ^3/uL (1.6-8.6); Neutrophils % (auto) 77.8 % (37.0-80.0); Nucleated Red Blood Cells % 0.1 %; Platelet Count (auto) 222 10^3/uL (140-450); Red Blood Cells 3.97 10^6/uL (4.5-5.90); Red Cell Distribution Width 14.7 % (11.8-14.3); White Blood Cell 7.4 10^3/uL (4.4-10.8)
[2023-12-10 16:52] LABS: Urine Bacteria None Seen /hpf (None Seen)
[2023-12-10 17:04] LABS: Urine Blood Negative /uL (Negative); Urine Clarity Clear (Clear); Urine Color Colorless (Yellow); Urine Protein, UAD Negative (Negative); Urine Specific Gravity 1.006 (1.001-1.035); Urine Urobilinogen Normal (Negative); Urine WBC <1 /hpf (0 - 3)
[2023-12-11] VITALS (8 sets, daily range): BP systolic 82–115; BP diastolic 29–62; PULSE 19–87; RESP 16–18; TEMP 97.5–99.6; O2SAT 93–98
[2023-12-12] VITALS (17 sets, daily range): BP systolic 91–112; BP diastolic 53–69; PULSE 47–168; RESP 13–32; TEMP 97.1–98.6; O2SAT 92–98
[2023-12-12] MEDS: TALC (STERILE) 5GM SUSP PL ONE (11:30)
[2023-12-13] VITALS (33 sets, daily range): BP systolic 67–104; BP diastolic 39–74; PULSE 70–97; RESP 14–29; TEMP 97.4–99.6; O2SAT 91–98
[2023-12-13 06:04] LABS: Anion Gap 6 (5-15); Calcium 8.4 mg/dL (8.7-10.4); Carbon Dioxide 33 mmol/L (20-30); Chloride 100 mmol/L (98-107); Potassium 3.5 mmol/L (3.5-5.1); Sodium 139 mmol/L (136-145)
[2023-12-13 06:10] LABS: BUN/Creatinine Ratio 11.4 (10.0-20.0); Blood Urea Nitrogen 14 mg/dL (9-23); Glucose 85 mg/dL (74-106)
[2023-12-13 06:12] LABS: Basophils # (auto) 0 10 ^3/uL (0-0.2); Basophils % (auto) 0.4 % (0.0-2.0); Eosinophils # (auto) 0.1 10 ^3/uL (0-0.8); Eosinophils % (auto) 1.6 % (0.0-7.0); Hematocrit 33.9 % (41.0-53.0); Hemoglobin 11.5 g/dL (13.5-17.5); Lymphocytes # (auto) 0.5 10 ^3/uL (0.4-5.4); Lymphocytes % (auto) 8.5 % (10.0-50.0); Mean Corpuscular Hemoglobin 31.1 pg (28.0-32.0); Mean Corpuscular Volume 91.4 fL (80.0-100.0); Monocytes # (auto) 0.8 10 ^3/uL (0-1.3); Neutrophils # (auto) 4.6 10 ^3/uL (1.6-8.6); Neutrophils % (auto) 76.5 % (37.0-80.0); Nucleated Red Blood Cells % 0.2 %; Platelet Count (auto) 197 10^3/uL (140-450); Red Blood Cells 3.71 10^6/uL (4.5-5.90); Red Cell Distribution Width 14.9 % (11.8-14.3)
[2023-12-13] MEDS: MORPHINE SULFATE INJ 2 MG/ml SYRG IV ONE (08:45)
[2023-12-13] MEDS: TALC (STERILE) 5GM SUSP PL ONE (10:04)
[2023-12-14] VITALS (16 sets, daily range): BP systolic 87–114; BP diastolic 53–76; PULSE 79–90; RESP 15–27; TEMP 98.1–98.7; O2SAT 93–99
[2023-12-14 09:15] LABS: Basophils # (auto) 0 10 ^3/uL (0-0.2); Basophils % (auto) 0.4 % (0.0-2.0); Eosinophils # (auto) 0.1 10 ^3/uL (0-0.8); Eosinophils % (auto) 0.6 % (0.0-7.0); Hematocrit 33.7 % (41.0-53.0); Hemoglobin 11.6 g/dL (13.5-17.5); Lymphocytes # (auto) 0.4 10 ^3/uL (0.4-5.4); Lymphocytes % (auto) 5.4 % (10.0-50.0); Mean Corpuscular Hemoglobin 31.6 pg (28.0-32.0); Mean Corpuscular Hgb Conc. 34.4 g/dL (32.0-36.0); Monocytes # (auto) 0.9 10 ^3/uL (0-1.3); Neutrophils # (auto) 6.6 10 ^3/uL (1.6-8.6); Neutrophils % (auto) 82.6 % (37.0-80.0); Platelet Count (auto) 206 10^3/uL (140-450); Red Blood Cells 3.67 10^6/uL (4.5-5.90); Red Cell Distribution Width 14.7 % (11.8-14.3)
[2023-12-14 09:27] LABS: Chloride 99 mmol/L (98-107); Potassium 3.4 mmol/L (3.5-5.1); Sodium 135 mmol/L (136-145)
[2023-12-14 09:28] LABS: Anion Gap 3 (5-15); Calcium 8.5 mg/dL (8.7-10.4); Carbon Dioxide 33 mmol/L (20-30)
[2023-12-14 09:33] LABS: BUN/Creatinine Ratio 9.8 (10.0-20.0); Blood Urea Nitrogen 12 mg/dL (9-23); Glucose 147 mg/dL (74-106); Magnesium 1.5 mg/dL (1.6-2.6)
== END 2023-12-14 16:59 | disposition home health service (06) | DRG 177 ==
LOC: CATH 11:05 → TELE 13:43 → TELE-EAST 17:53 → DOU IN ICU 12-12 16:59
PROVIDERS: ADMIT Internal Medicine Cardiovascular Disease; ATTEND Internal Medicine Cardiovascular Disease
PROC: 0W9B30Z Drainage of Left Pleural Cavity with Drainage Device, Percutaneous Approach (ICD-10-PCS; principal; 2023-12-01 09:15)
PROC: 0B9B8ZZ Drainage of Left Lower Lobe Bronchus, Via Natural or Artificial Opening Endoscopic (ICD-10-PCS; 2023-12-06)
PROC: 0B968ZZ Drainage of Right Lower Lobe Bronchus, Via Natural or Artificial Opening Endoscopic (ICD-10-PCS; 2023-12-06)
PROC: 0W993ZZ Drainage of Right Pleural Cavity, Percutaneous Approach (ICD-10-PCS; 2023-12-07)
PROC: 3E0L3GC Introduction of Other Therapeutic Substance into Pleural Cavity, Percutaneous Approach (ICD-10-PCS; 2023-12-13)
DX: J15.69 Pneumonia due to other Gram-negative bacteria (principal); J96.01 Acute respiratory failure with hypoxia; J90 Pleural effusion, not elsewhere classified; I42.0 Dilated cardiomyopathy; I50.22 Chronic systolic (congestive) heart failure; D68.59 Other primary thrombophilia; I11.0 Hypertensive heart disease with heart failure; I25.10 Atherosclerotic heart disease of native coronary artery without angina pectoris; Z20.822 Contact with and (suspected) exposure to COVID-19; M54.50 Low back pain, unspecified; I25.5 Ischemic cardiomyopathy; Z68.29 Body mass index [BMI] 29.0-29.9, adult
CPT/HCPCS: 31645; 32555; 36415; 71045; 71046; 71260; 76604; 76942; 80048; 80053; 80162; 81001; 82962; 83735; 83986; 85025; 85610; 85730; 86850; 86900; 86901; 87070; 87081; 87205; 87426; 87804; 89051; 93005; 97110; 97116; 97163; 97530; G0378; J0171; J1815; J1956; J2250; J2405; J3490

== ENCOUNTER → 2024-01-25 | Outpatient (CLI) | payer MEDICARE ==
[2024-01-25] VITALS (11 sets, daily range): BP systolic 95–107; BP diastolic 57–70; PULSE 70–98; RESP 18; O2SAT 96
[~2024-01-25] MED LIST changes: +BUMETANIDE INJECTION 10 ML ONE; +CARB25TA79 PO; +CYANOCOBALAMIN (B-12) 1000 MCG/1 ML VIAL ONE; +DOBUTamine 1000MCG/ML 250 ML IV ONE; +HYDR-4798 PO; -POM PO; +POTASSIUM CHL 20 Meq TABLET PO ONE; +metOLazone 5 MG TAB ONE
[2024-01-25] MEDS: POTASSIUM CHL 20 Meq TABLET PO ONE (11:30)
[2024-01-25] MEDS: DOBUTamine 1000MCG/ML 250 ML IV ONE (11:42)
[2024-01-25] MEDS: BUMETANIDE 2.5mg/10ml (0.25 mg/ml) INJ IV ONE (13:00)
[2024-01-25] MEDS: metOLazone 5 MG TAB PO ONE (14:15)
[2024-01-25] MEDS: CYANOCOBALAMIN (B-12) 1000 MCG/1 ML VIAL IM ONE (15:00)
== END | disposition home or self-care (01) ==
LOC: CHF HDHVI 11:24
PROVIDERS: ATTEND Internal Medicine Cardiovascular Disease
DX: I11.0 Hypertensive heart disease with heart failure (principal); I50.23 Acute on chronic systolic (congestive) heart failure; I25.10 Atherosclerotic heart disease of native coronary artery without angina pectoris; I25.5 Ischemic cardiomyopathy
CPT/HCPCS: 96365; 96366; 96372; 96375; G0463; J1250; J3420; 96374

== ENCOUNTER → 2024-01-30 | Outpatient (CLI) | payer MEDICARE ==
[2024-01-30] VITALS (12 sets, daily range): BP systolic 92–104; BP diastolic 46–62; PULSE 69–78; RESP 18; O2SAT 96
[~2024-01-30] MED LIST changes: -BUMETANIDE INJECTION 10 ML ONE; -CYANOCOBALAMIN (B-12) 1000 MCG/1 ML VIAL ONE; -DOBUTamine 1000MCG/ML 250 ML IV ONE; -POTASSIUM CHL 20 Meq TABLET PO ONE; -metOLazone 5 MG TAB ONE
[2024-01-30] MEDS: DOBUTamine 1000MCG/ML 250 ML IV ONE ×2 (08:48→08:58)
== END | disposition home or self-care (01) ==
LOC: CHF HDHVI 08:20
PROVIDERS: ATTEND Internal Medicine Cardiovascular Disease
DX: I25.5 Ischemic cardiomyopathy (principal); I50.23 Acute on chronic systolic (congestive) heart failure; I11.0 Hypertensive heart disease with heart failure; Z79.899 Other long term (current) drug therapy
CPT/HCPCS: 96365; 96366; G0463; J1250

== ENCOUNTER → 2024-02-11 | Outpatient (CLI) | payer MEDICARE ==
[2024-02-11] VITALS (12 sets, daily range): BP systolic 94–109; BP diastolic 56–74; PULSE 79–92; RESP 16; O2SAT 97
[2024-02-11] MEDS: POTASSIUM CHL 20 Meq TABLET PO ONE ×2 (11:18→11:57)
[2024-02-11] MEDS: DOBUTamine 1000MCG/ML 250 ML IV ONE (11:27)
[2024-02-11] MEDS: SODIUM FERRIC GLUC CPLEX 62.5MG/5ML VIAL IV ONE (11:27)
[2024-02-11] MEDS: DOBUTamine 1000MCG/ML 250 ML IV SCH (11:33)
[2024-02-11] MEDS: SODIUM FERR GLUC 125 MG/in NS 100 ML IVPB KIT IV ONE (11:37)
== END | disposition home or self-care (01) ==
LOC: CHF HDHVI 11:19
PROVIDERS: ATTEND Internal Medicine Cardiovascular Disease
DX: I11.0 Hypertensive heart disease with heart failure (principal); I50.23 Acute on chronic systolic (congestive) heart failure; I25.10 Atherosclerotic heart disease of native coronary artery without angina pectoris; I25.5 Ischemic cardiomyopathy; I25.2 Old myocardial infarction; R06.02 Shortness of breath; Z79.899 Other long term (current) drug therapy
CPT/HCPCS: 71046; 96365; 96366; 96368; G0463; J1250; J2916; 96367

== ENCOUNTER → 2024-02-22 | Outpatient (CLI) | payer MEDICARE ==
[2024-02-22] VITALS (12 sets, daily range): BP systolic 95–110; BP diastolic 53–69; PULSE 70–95; RESP 20; O2SAT 96
[2024-02-22] MEDS: DOBUTamine 1000MCG/ML 250 ML IV ONE (08:56)
[2024-02-22] MEDS: DOBUTamine 1000MCG/ML 250 ML IV SCH (09:00)
[2024-02-22] MEDS: POTASSIUM CHL 20 Meq TABLET PO ONE ×2 (09:50→11:14)
[2024-02-22] MEDS: BUMETANIDE 2.5mg/10ml (0.25 mg/ml) INJ IV ONE (09:50)
[2024-02-22] MEDS: BUMETANIDE INJECTION 10 ML ONE (11:17)
--- NOTE | 2024-02-22 12:26 | DVH ---
Procedure: XY CHEST TWO VIEWS ROUTINE 02/22/2024 11:55 AM Indication: SOB. Comparison: XY CHEST TWO VIEWS ROUTINE on DOS: 02/11/24, XY CHEST TWO VIEWS ROUTINE on DOS: 11/28/23, XY CHEST TWO VIEWS ROUTINE on DOS: 11/12/23 TECHNIQUE: XY CHEST TWO VIEWS ROUTINE FINDINGS: Medical devices: A multilead pacemaker /AICD is seen in the chest wall with leads extending to the ca rdiac chambers. Cardiomediastinal: The heart is moderately enlarged. Pulmonary vasculature is prominent. Atherosclero tic calcification of the aortic arch noted. Lungs: Small bilateral pleural effusions and bilateral lower lung zone pulmonary opacities noted. No pneumothorax. Bones/soft tissues: No acute abnormality is noted. IMPRESSION: 1. Stable moderate cardiomegaly, mild pulmonary venous congestion, moderate bilateral pleural effusio ns and bilateral lower lung zone pulmonary opacities may represent atelectasis or pneumonia. No signi ficant perihilar edema. There may be an element of interstitial edema.
== END | disposition home or self-care (01) ==
LOC: CHF HDHVI 08:34
PROVIDERS: ATTEND Internal Medicine Cardiovascular Disease
DX: I11.0 Hypertensive heart disease with heart failure (principal); I50.23 Acute on chronic systolic (congestive) heart failure; I25.5 Ischemic cardiomyopathy; I25.10 Atherosclerotic heart disease of native coronary artery without angina pectoris; I25.2 Old myocardial infarction; J90 Pleural effusion, not elsewhere classified; Z79.899 Other long term (current) drug therapy
CPT/HCPCS: 71046; 96365; 96366; 96375; G0463; J1250; 96374

== ENCOUNTER → 2024-02-27 | Outpatient (CLI) | payer MEDICARE ==
[2024-02-27] VITALS (12 sets, daily range): BP systolic 90–110; BP diastolic 51–69; PULSE 70–90; RESP 18; O2SAT 96
[~2024-02-27] VITALS: Ht 30.5 cm; Wt 85.8 kg
[~2024-02-27] MED LIST changes: +DOPamine 1600MCG/ML D5W 250 ML IV ONE
[2024-02-27] MEDS: DOBUTamine 1000MCG/ML 250 ML IV ONE ×2 (08:40→08:44)
[2024-02-27] MEDS: BUMETANIDE INJECTION 10 ML ONE (09:30)
[2024-02-27] MEDS: TESTOSTERONE CYPIONATE 200 MG/ML 1ML VIAL IM ONE ×2 (09:31→09:50)
[2024-02-27] MEDS: CYANOCOBALAMIN (B-12) 1000 MCG/1 ML VIAL ONE (09:31)
[2024-02-27] MEDS: CYANOCOBALAMIN (B-12) 1000 MCG/1 ML VIAL IM ONE (09:53)
[2024-02-27] MEDS: BUMETANIDE 2.5mg/10ml (0.25 mg/ml) INJ IV ONE (10:01)
[2024-02-27] MEDS: POTASSIUM CHL 20 Meq TABLET PO ONE (10:01)
== END | disposition home or self-care (01) ==
LOC: CHF HDHVI 08:34
PROVIDERS: ATTEND Internal Medicine Cardiovascular Disease
DX: I11.0 Hypertensive heart disease with heart failure (principal); I50.23 Acute on chronic systolic (congestive) heart failure; E29.1 Testicular hypofunction; I25.10 Atherosclerotic heart disease of native coronary artery without angina pectoris; I25.5 Ischemic cardiomyopathy; I25.2 Old myocardial infarction; Z79.899 Other long term (current) drug therapy
CPT/HCPCS: 96365; 96366; 96372; 96375; G0463; J1071; J1250; J3420

== ENCOUNTER → 2024-03-03 | Outpatient (CLI) | payer MEDICARE ==
[2024-03-03] VITALS (12 sets, daily range): BP systolic 93–111; BP diastolic 55–68; PULSE 65–77; RESP 18; O2SAT 96
[~2024-03-03] MED LIST changes: -DOPamine 1600MCG/ML D5W 250 ML IV ONE
[2024-03-03] MEDS: DOBUTamine 1000MCG/ML 250 ML IV ONE ×2 (10:00→10:17)
[2024-03-03] MEDS: BUMETANIDE INJECTION 10 ML ONE (11:09)
[2024-03-03] MEDS: POTASSIUM CHL 20 Meq TABLET PO ONE ×2 (11:09→11:16)
[2024-03-03] MEDS: BUMETANIDE 2.5mg/10ml (0.25 mg/ml) INJ IV ONE (11:15)
== END | disposition home or self-care (01) ==
LOC: CHF HDHVI 10:03
PROVIDERS: ATTEND Internal Medicine Cardiovascular Disease
DX: I11.0 Hypertensive heart disease with heart failure (principal); I50.23 Acute on chronic systolic (congestive) heart failure; I25.10 Atherosclerotic heart disease of native coronary artery without angina pectoris; I25.5 Ischemic cardiomyopathy; I25.2 Old myocardial infarction; Z79.899 Other long term (current) drug therapy
CPT/HCPCS: 96365; 96366; 96375; G0463; J1250; 96374

== ENCOUNTER → 2024-03-10 | Outpatient (CLI) | payer MEDICARE ==
[2024-03-10] VITALS (10 sets, daily range): BP systolic 98–106; BP diastolic 49–63; PULSE 69–73; RESP 18; O2SAT 98
[2024-03-10] MEDS: POTASSIUM CHL 20 Meq TABLET PO ONE ×2 (11:30→12:50)
[2024-03-10] MEDS: DOBUTamine 1000MCG/ML 250 ML IV ONE ×2 (11:45→11:51)
[2024-03-10] MEDS: BUMETANIDE 2.5mg/10ml (0.25 mg/ml) INJ IV ONE (12:30)
[2024-03-10] MEDS: BUMETANIDE INJECTION 10 ML ONE ×2 (12:50→13:48)
== END | disposition home or self-care (01) ==
LOC: CHF HDHVI 11:32
PROVIDERS: ATTEND Internal Medicine Cardiovascular Disease
DX: I11.0 Hypertensive heart disease with heart failure (principal); I50.23 Acute on chronic systolic (congestive) heart failure; I25.5 Ischemic cardiomyopathy; I25.10 Atherosclerotic heart disease of native coronary artery without angina pectoris; I25.2 Old myocardial infarction; Z79.899 Other long term (current) drug therapy
CPT/HCPCS: 96365; 96366; 96375; G0463; J1250; 96374

== ENCOUNTER 2024-03-15 13:29 | Inpatient (IN) | payer MEDICARE ==
[~2024-03-15] VITALS: Ht 167.6 cm; Wt 74.8 kg
[2024-03-15] MEDS ORDERED: MORPHINE SULFATE INJ 2 MG/ml SYRG IV PRN (15:00)
[2024-03-15] MEDS ORDERED: NITROGLYCERIN 0.4 MG SL TAB SL PRN (15:00)
[2024-03-15] MEDS: DOBUTamine 1000MCG/ML 250 ML IV SCH (15:00)
[2024-03-15 16:22] VITALS: BP 123/81; PULSE 67; RESP 18; TEMP 97.5; O2SAT 92
[2024-03-15] MEDS: metFORMIN HYDROCHLORIDE 500 MG TAB PO ONE (16:50)
[2024-03-15] MEDS: FUROSEMIDE INJECTION 100 MG in SODIUM CHL 0.9% 100 ML IV SCH (16:51)
[2024-03-15 17:00] VITALS: BP 134/63; PULSE 60; TEMP 98.6; O2SAT 99
--- NOTE | 2024-03-15 19:29 | DVH ---
CHEST RADIOGRAPH Indication: chf Technique: Single frontal view of the chest was obtained COMPARISON: XY CHEST PORTABLE on DOS: 12/14/23, XY CHEST XRAY 1 VIEW on DOS: 12/14/23, XY CHEST XRAY 1 VIEW on DOS: 12/13/23, XY CHEST XRAY 1 VIEW on DOS: 12/10/23, XY CHEST PORTABLE on DOS: 12/07/23 FINDINGS: Lines and Tubes: Left-sided pacemaker/ AICD with cardiac leads. Dom go Lungs: Moderate interstitial pulmonary edema. Pleura: Small bilateral pleural effusions. No pneumothorax. Cardiomediastinal contours: Cardiomegaly Bones: Unremarkable IMPRESSION: 1. Moderate interstitial pulmonary edema in the setting of cardiomegaly. 2. Small bilateral pleural effusions
[2024-03-15 19:40] VITALS: PULSE 70
[2024-03-15] MEDS: FLUTICASONE PROP NASAL SPR 0.05 % (50MCG) 16GM EACHNOSTRI SCH (20:41)
[2024-03-15 21:00] VITALS: BP 100/65; PULSE 73; RESP 19; TEMP 98.1; O2SAT 100
[2024-03-16] VITALS (8 sets, daily range): BP systolic 101–111; BP diastolic 56–65; PULSE 62–75; RESP 16–20; TEMP 97.5–98.5; O2SAT 95–99
[2024-03-16] MEDS: TEMAZEPAM 15 MG CAP PO PRN (00:20)
[2024-03-16 06:24] LABS: Basophils # (auto) 0 10 ^3/uL (0-0.2); Basophils % (auto) 0.2 % (0.0-2.0); Eosinophils # (auto) 0.1 10 ^3/uL (0-0.8); Hematocrit 30.7 % (41.0-53.0); Hemoglobin 9.8 g/dL (13.5-17.5); Lymphocytes # (auto) 0.4 10 ^3/uL (0.4-5.4); Lymphocytes % (auto) 8.3 % (10.0-50.0); Mean Corpuscular Hemoglobin 31.9 pg (28.0-32.0); Mean Corpuscular Volume 99.8 fL (80.0-100.0); Monocytes # (auto) 0.6 10 ^3/uL (0-1.3); Monocytes % (auto) 10.9 % (0.0-12.0); Neutrophils # (auto) 4.2 10 ^3/uL (1.6-8.6); Neutrophils % (auto) 79.6 % (37.0-80.0); Nucleated Red Blood Cells % 0.1 %; Platelet Count (auto) 197 10^3/uL (140-450); Red Blood Cells 3.08 10^6/uL (4.5-5.90); Red Cell Distribution Width 17.5 % (11.8-14.3); White Blood Cell 5.3 10^3/uL (4.4-10.8)
[2024-03-16] MEDS: AMIODARONE HCL 200 MG TAB PO SCH (08:19)
[2024-03-16] MEDS: CHOLECALCIFEROL (VITD3) 1,000UNIT=25mCg TAB PO SCH (08:19)
[2024-03-16] MEDS: FLUoxetine HCL 10 MG CAP PO SCH (08:19)
[2024-03-16] MEDS: CARBIDOPA W LEVODOPA 25/100mg TABLET PO SCH ×2 (08:20→20:29)
[2024-03-16] MEDS: DIGOXIN 0.125 MG TAB PO SCH (08:20)
[2024-03-17] VITALS (10 sets, daily range): BP systolic 87–113; BP diastolic 53–75; PULSE 63–82; RESP 16–20; TEMP 97.8–98.6; O2SAT 97–100
[2024-03-17 08:20] LABS: Basophils # (auto) 0 10 ^3/uL (0-0.2); Basophils % (auto) 0.5 % (0.0-2.0); Eosinophils # (auto) 0.1 10 ^3/uL (0-0.8); Hematocrit 31.1 % (41.0-53.0); Hemoglobin 10.3 g/dL (13.5-17.5); Lymphocytes # (auto) 0.3 10 ^3/uL (0.4-5.4); Mean Corpuscular Hemoglobin 32.8 pg (28.0-32.0); Mean Corpuscular Volume 99.4 fL (80.0-100.0); Monocytes # (auto) 0.5 10 ^3/uL (0-1.3); Monocytes % (auto) 10.5 % (0.0-12.0); Neutrophils # (auto) 4.2 10 ^3/uL (1.6-8.6); Nucleated Red Blood Cells % 0.1 %; Platelet Count (auto) 196 10^3/uL (140-450); Red Blood Cells 3.13 10^6/uL (4.5-5.90); Red Cell Distribution Width 17.6 % (11.8-14.3); White Blood Cell 5.2 10^3/uL (4.4-10.8)
[2024-03-17] MEDS: POTASSIUM CHL 20MEQ/100ML 100 ML IV SCH (09:30)
[2024-03-17 10:07] LABS: Albumin 3.6 g/dL (3.2-4.8); Alkaline Phosphatase 71 U/L (46-116); Anion Gap 8 (5-15); BUN/Creatinine Ratio 11.9 (10.0-20.0); Blood Urea Nitrogen 18 mg/dL (9-23); Calcium 9.4 mg/dL (8.7-10.4); Carbon Dioxide 35 mmol/L (20-31); Chloride 96 mmol/L (98-107); Glucose 98 mg/dL (74-106); Potassium 3.4 mmol/L (3.5-5.1); Sodium 139 mmol/L (136-145)
[2024-03-17 10:08] LABS: Aspartate Aminotransferase 16 U/L (13-40)
[2024-03-17 10:09] LABS: Total Protein 5.8 g/dL (5.7-8.2)
[2024-03-17 10:10] LABS: Alanine Aminotransferase < 9 U/L (7-40)
--- NOTE | 2024-03-17 13:15 | DVHPN2 ---
Progress Note - Dictate Date Seen: Mar 16, 2024 Medical Necessity Reason Pt with a Central, PICC or Fol: No Subjective INCREASING SOB HX OF LEFT PLEURAL EFFUSION S/P THORACENTESIS NOW WITH RAPID RECURRENCE DISCUSSED WITH DR ROBERTS FOR CHEST TUBE PLACEMENT PMH LEFT PLEURAL EFFUSION HTN CAD ISCHEMIC CM vital signs Vital Sign Date Time Temp Pulse Resp B/P (MAP) Pulse Ox O2 Delivery O2 Flow Rate FiO2 03/17/24 12:59 98.1 71 16 113/68 (83) 98 98.1 03/16/24 19:50 Nasal Cannula* 3 32 Total Intake and Output 03/16/24 03/16/24 03/17/24 14:59 22:59 06:59 Intake Total 88 ml 217 ml 200 ml Output Total 500 ml 800 ml Balance 88 ml -283 ml -600 ml medications Current Medications Medications Dose Ordered Sig/Kasey Route Start Time Stop Time Status Last Admin Dose Admin Nitroglycerin 0.4 mg Q5MINP PRN SL 03/15/24 15:00 Morphine Sulfate 2 mg Q30M PRN IV 03/15/24 15:00 Furosemide 100 mg/ Sodium Chloride 110 ml @ 22 mls/hr Q5H IV 03/15/24 15:00 03/17/24 09:30 22 MLS/HR Dobutamine HCl/ Dextrose 250 ml @ 13.425 mls/ hr [id number] IV 03/15/24 15:00 03/17/24 03:03 13.425 MLS/HR Amiodarone HCl 200 mg DAILY PO 03/16/24 10:00 03/17/24 10:13 200 MG Cholecalciferol 2,000 unit DAILY PO 03/16/24 10:00 03/17/24 10:08 2,000 UNIT Digoxin 0.125 mg DAILY PO 03/16/24 10:00 03/17/24 10:09 0.125 MG Fluoxetine HCl 10 mg DAILY PO 03/16/24 10:00 03/16/24 08:19 10 MG Fluticasone Propionate 50 mcg Q12HR EACHNOSTRI 03/15/24 22:00 03/17/24 10:17 50 MCG Temazepam 15 mg HSPRN PRN PO 03/15/24 22:30 03/16/24 20:29 15 MG Carbidopa/Levodopa 2 tab BID PO 03/16/24 22:00 03/17/24 10:08 2 TAB Potassium Chloride 100 ml @ 50 mls/hr Q2H IV 03/17/24 09:30 03/17/24 15:29 objective VITAL SIGNS: Blood pressure is 116/80, pulse of 70 and regular. Intraventricular conduction delay. Respirations 20, temperature 98.4. HEENT: Pupils are equal and reactive. Funduscopic exam is benign. Sclerae are anicteric. Extraocular muscles are intact. Tympanic membranes are negative. Nasal passages are intact. Sinuses are nontender. Oral mucosa moist. Posterior pharynx without any exudates. NECK: No nuchal rigidity. No cervical, axillary or supraclavicular adenopathy. Thyroid is within normal limits. JVD about 2 cm above the angle of Andrea. Thyroid is within normal limits. PULMONARY: Clear to auscultation. No egophony, no E to A changes. No rhonchi, no wheezes. Tympanic to percussion. CARDIOVASCULAR: Regular rate. PMI is diffuse, laterally displaced. There is a soft 2/6 systolic murmur along the left sternal border. ABDOMEN: Obese, unable to appreciate an organomegaly. Liver approximately 5 cm in span. Spleen tip nonpalpable. Stool guaiac is negative. No suprapubic tenderness, no CVA tenderness and no epigastric tenderness. EXTREMITIES: 1+ edema. 2+ pulses bilaterally. NEUROLOGIC: DTRs are 2+ symmetrical. Cranial nerves 2-12 within normal limits. Sensory, motor modalities are intact. Negative for Babinski. Negative for Romberg. No ataxia. MUSCULOSKELETAL: Normal development. No cachexia. Strength 5/5 in both upper and lower extremities. laboratory and microbiology Laboratory Tests 03/17/24 07:30 Test 03/17/24 07:30 Range/Units Serum Glucose 98 74-106 mg/dL Problem List INCREASING SOB HX OF LEFT PLEURAL EFFUSION S/P THORACENTESIS HFrEF ANASARCA ACUTE DECOMPENSATION PMH LEFT PLEURAL EFFUSION HTN CAD ISCHEMIC CM ANEMIA HYPOKALEMIA Assessment/Plan DOBUTAMINE LASIX DRIP MONITOR K AND RENAL FUNCTION REPEAT CXR Plan discussed with: Patient Critical Care Time(min): 35 STEFANY RANKIN MD Mar 17, 2024 13:15
[2024-03-17] MEDS: IPRATROPIUM BROM 0.5 MG/2.5ML INH SOL NEB PRN (15:25)
[2024-03-17] MEDS: POTASSIUM CHL 20 Meq TABLET PO ONE (17:40)
[2024-03-18] VITALS (10 sets, daily range): BP systolic 99–112; BP diastolic 60–69; PULSE 61–74; RESP 17–20; TEMP 97.4–98.2; O2SAT 90–100
[2024-03-18 06:47] LABS: Basophils # (auto) 0 10 ^3/uL (0-0.2); Basophils % (auto) 0.2 % (0.0-2.0); Eosinophils # (auto) 0.2 10 ^3/uL (0-0.8); Eosinophils % (auto) 2.9 % (0.0-7.0); Hematocrit 29.4 % (41.0-53.0); Hemoglobin 9.8 g/dL (13.5-17.5); Lymphocytes # (auto) 0.3 10 ^3/uL (0.4-5.4); Lymphocytes % (auto) 5.9 % (10.0-50.0); Mean Corpuscular Hemoglobin 32.6 pg (28.0-32.0); Mean Corpuscular Hgb Conc. 33.3 g/dL (32.0-36.0); Mean Corpuscular Volume 98.2 fL (80.0-100.0); Monocytes # (auto) 0.6 10 ^3/uL (0-1.3); Monocytes % (auto) 10.8 % (0.0-12.0); Neutrophils # (auto) 4.1 10 ^3/uL (1.6-8.6); Neutrophils % (auto) 80.2 % (37.0-80.0); Platelet Count (auto) 192 10^3/uL (140-450); Red Cell Distribution Width 16.9 % (11.8-14.3); White Blood Cell 5.1 10^3/uL (4.4-10.8)
--- NOTE | 2024-03-18 13:04 | DVHPN2 ---
Progress Note - Dictate Date Seen: Mar 18, 2024 Medical Necessity Reason Pt with a Central, PICC or Fol: No Subjective INCREASING SOB HX OF LEFT PLEURAL EFFUSION S/P THORACENTESIS NOW WITH RAPID RECURRENCE DISCUSSED WITH DR ROBERTS FOR CHEST TUBE PLACEMENT PMH LEFT PLEURAL EFFUSION HTN CAD ISCHEMIC CM vital signs Vital Sign Date Time Temp Pulse Resp B/P (MAP) Pulse Ox O2 Delivery O2 Flow Rate FiO2 03/18/24 12:33 113/60 03/18/24 11:17 70 03/18/24 10:19 94 Nasal Cannula 3.0 03/18/24 10:19 32 03/18/24 09:00 97.8 17 97.8 Total Intake and Output 03/17/24 03/17/24 03/18/24 15:00 23:00 07:00 Intake Total 510 ml 125 ml Output Total 550 ml 950 ml Balance -40 ml -825 ml medications Current Medications Medications Dose Ordered Sig/Kasey Route Start Time Stop Time Status Last Admin Dose Admin Nitroglycerin 0.4 mg Q5MINP PRN SL 03/15/24 15:00 Morphine Sulfate 2 mg Q30M PRN IV 03/15/24 15:00 Furosemide 100 mg/ Sodium Chloride 110 ml @ 22 mls/hr Q5H IV 03/15/24 15:00 03/18/24 12:33 22 MLS/HR Dobutamine HCl/ Dextrose 250 ml @ 13.425 mls/ hr [id number] IV 03/15/24 15:00 03/17/24 22:59 13.425 MLS/HR Amiodarone HCl 200 mg DAILY PO 03/16/24 10:00 03/18/24 11:17 200 MG Cholecalciferol 2,000 unit DAILY PO 03/16/24 10:00 03/18/24 11:16 2,000 UNIT Digoxin 0.125 mg DAILY PO 03/16/24 10:00 03/18/24 11:17 0.125 MG Fluoxetine HCl 10 mg DAILY PO 03/16/24 10:00 03/17/24 14:59 10 MG Fluticasone Propionate 50 mcg Q12HR EACHNOSTRI 03/15/24 22:00 03/18/24 12:32 50 MCG Temazepam 15 mg HSPRN PRN PO 03/15/24 22:30 03/16/24 20:29 15 MG Carbidopa/Levodopa 2 tab BID PO 03/16/24 22:00 03/18/24 10:00 2 TAB Ipratropium [place] 0.5 mg Q6HPRN PRN NEB 03/17/24 14:15 03/17/24 15:25 0.5 MG objective VITAL SIGNS: Blood pressure is 116/80, pulse of 70 and regular. Intraventricular conduction delay. Respirations 20, temperature 98.4. HEENT: Pupils are equal and reactive. Funduscopic exam is benign. Sclerae are anicteric. Extraocular muscles are intact. Tympanic membranes are negative. Nasal passages are intact. Sinuses are nontender. Oral mucosa moist. Posterior pharynx without any exudates. NECK: No nuchal rigidity. No cervical, axillary or supraclavicular adenopathy. Thyroid is within normal limits. JVD about 2 cm above the angle of Andrea. Thyroid is within normal limits. PULMONARY: Clear to auscultation. No egophony, no E to A changes. No rhonchi, no wheezes. Tympanic to percussion. CARDIOVASCULAR: Regular rate. PMI is diffuse, laterally displaced. There is a soft 2/6 systolic murmur along the left sternal border. ABDOMEN: Obese, unable to appreciate an organomegaly. Liver approximately 5 cm in span. Spleen tip nonpalpable. Stool guaiac is negative. No suprapubic tenderness, no CVA tenderness and no epigastric tenderness. EXTREMITIES: 1+ edema. 2+ pulses bilaterally. NEUROLOGIC: DTRs are 2+ symmetrical. Cranial nerves 2-12 within normal limits. Sensory, motor modalities are intact. Negative for Babinski. Negative for Romberg. No ataxia. MUSCULOSKELETAL: Normal development. No cachexia. Strength 5/5 in both upper and lower extremities. laboratory and microbiology Laboratory Tests 03/18/24 05:00 03/17/24 07:30 Test 03/17/24 07:30 Range/Units Serum Glucose 98 74-106 mg/dL Problem List INCREASING SOB HX OF LEFT PLEURAL EFFUSION S/P THORACENTESIS HFrEF ANASARCA ACUTE DECOMPENSATION PMH LEFT PLEURAL EFFUSION HTN CAD ISCHEMIC CM ANEMIA HYPOKALEMIA Assessment/Plan DOBUTAMINE LASIX DRIP MONITOR K AND RENAL FUNCTION REPEAT CXR CORRECT K TOTAL OF 3L NEGATIVE BUT THIS IS AN ESTIMATE Plan discussed with: Patient Critical Care Time(min): 35 ARUNASALAM,STEFANY MD Mar 18, 2024 13:04
[2024-03-18 13:39] LABS: Sodium 140 mmol/L (136-145)
[2024-03-18 13:40] LABS: Anion Gap 5 (5-15); Calcium 9.1 mg/dL (8.7-10.4)
[2024-03-18 13:45] LABS: Blood Urea Nitrogen 19 mg/dL (9-23); Carbon Dioxide 39 mmol/L (20-31); Chloride 96 mmol/L (98-107); Glucose 122 mg/dL (74-106); Potassium 3.4 mmol/L (3.5-5.1)
--- NOTE | 2024-03-18 14:22 | CONS ---
Pharmacy Clinical Information: CQM HF. Per previous MD notes, patient takes entresto, spironolactone and ca rvedilol at home which might be resumed at discharge. Patient qualifies for an SGLT2 at this time, however, there is a possibility of chest tube placement in which case it may recommended to hold Jardiance up to 3 days prior to surgery. Once resolved, consider adding SGLT2 to patient's medication list if no other contraindications are present at the time. PERLA DEL ANGEL PHARMACIST Mar 18, 2024 14:22
[2024-03-19] VITALS (11 sets, daily range): BP systolic 101–106; BP diastolic 55–69; PULSE 59–88; RESP 16–19; TEMP 97.5–98.4; O2SAT 98–100
--- NOTE | 2024-03-19 09:59 | DVHPN2 ---
Progress Note - Dictate Date Seen: Mar 19, 2024 Medical Necessity Reason Pt with a Central, PICC or Fol: No Subjective INCREASING SOB HX OF LEFT PLEURAL EFFUSION S/P THORACENTESIS NOW WITH RAPID RECURRENCE DISCUSSED WITH DR ROBERTS FOR CHEST TUBE PLACEMENT PMH LEFT PLEURAL EFFUSION HTN CAD ISCHEMIC CM vital signs Vital Sign Date Time Temp Pulse Resp B/P (MAP) Pulse Ox O2 Delivery O2 Flow Rate FiO2 03/19/24 07:26 99 Nasal Cannula 3.0 03/19/24 07:26 32 03/19/24 05:00 97.5 59 19 104/69 (81) 97.5 Total Intake and Output 03/18/24 03/18/24 03/19/24 15:00 23:00 07:00 Intake Total 800 ml 235 ml Output Total 1075 ml 400 ml Balance -275 ml -165 ml medications Current Medications Medications Dose Ordered Sig/Kasey Route Start Time Stop Time Status Last Admin Dose Admin Nitroglycerin 0.4 mg Q5MINP PRN SL 03/15/24 15:00 Morphine Sulfate 2 mg Q30M PRN IV 03/15/24 15:00 Furosemide 100 mg/ Sodium Chloride 110 ml @ 22 mls/hr Q5H IV 03/15/24 15:00 03/19/24 04:00 22 MLS/HR Dobutamine HCl/ Dextrose 250 ml @ 13.425 mls/ hr [id number] IV 03/15/24 15:00 03/18/24 18:57 13.425 MLS/HR Amiodarone HCl 200 mg DAILY PO 03/16/24 10:00 03/18/24 11:17 200 MG Cholecalciferol 2,000 unit DAILY PO 03/16/24 10:00 03/18/24 11:16 2,000 UNIT Digoxin 0.125 mg DAILY PO 03/16/24 10:00 03/18/24 11:17 0.125 MG Fluoxetine HCl 10 mg DAILY PO 03/16/24 10:00 03/18/24 16:00 10 MG Fluticasone Propionate 50 mcg Q12HR EACHNOSTRI 03/15/24 22:00 03/18/24 22:00 50 MCG Temazepam 15 mg HSPRN PRN PO 03/15/24 22:30 03/16/24 20:29 15 MG Carbidopa/Levodopa 2 tab BID PO 03/16/24 22:00 123/24 22:00 2 TAB Ipratropium [place] 0.5 mg Q6HPRN PRN NEB 03/17/24 14:15 03/17/24 15:25 0.5 MG objective VITAL SIGNS: Blood pressure is 116/80, pulse of 70 and regular. Intraventricular conduction delay. Respirations 20, temperature 98.4. HEENT: Pupils are equal and reactive. Funduscopic exam is benign. Sclerae are anicteric. Extraocular muscles are intact. Tympanic membranes are negative. Nasal passages are intact. Sinuses are nontender. Oral mucosa moist. Posterior pharynx without any exudates. NECK: No nuchal rigidity. No cervical, axillary or supraclavicular adenopathy. Thyroid is within normal limits. JVD about 2 cm above the angle of Andrea. Thyroid is within normal limits. PULMONARY: Clear to auscultation. No egophony, no E to A changes. No rhonchi, no wheezes. Tympanic to percussion. CARDIOVASCULAR: Regular rate. PMI is diffuse, laterally displaced. There is a soft 2/6 systolic murmur along the left sternal border. ABDOMEN: Obese, unable to appreciate an organomegaly. Liver approximately 5 cm in span. Spleen tip nonpalpable. Stool guaiac is negative. No suprapubic tenderness, no CVA tenderness and no epigastric tenderness. EXTREMITIES: 1+ edema. 2+ pulses bilaterally. NEUROLOGIC: DTRs are 2+ symmetrical. Cranial nerves 2-12 within normal limits. Sensory, motor modalities are intact. Negative for Babinski. Negative for Romberg. No ataxia. MUSCULOSKELETAL: Normal development. No cachexia. Strength 5/5 in both upper and lower extremities. laboratory and microbiology Laboratory Tests 03/18/24 05:00 Test 03/18/24 05:00 Range/Units Serum Glucose 122 H 74-106 mg/dL Problem List INCREASING SOB HX OF LEFT PLEURAL EFFUSION S/P THORACENTESIS HFrEF ANASARCA ACUTE DECOMPENSATION PMH LEFT PLEURAL EFFUSION HTN CAD ISCHEMIC CM ANEMIA HYPOKALEMIA Assessment/Plan DOBUTAMINE LASIX DRIP MONITOR K AND RENAL FUNCTION REPEAT CXR CORRECT K TOTAL OF 3L NEGATIVE BUT THIS IS AN ESTIMATE STILL WITH SIGNIFICANT VOLUME OVERLOAD INCREASE DOBUTAMINE TO 5 MCG CORRECT K Plan discussed with: Patient Critical Care Time(min): 35 STEFANY RANKIN MD Mar 19, 2024 09:59
[2024-03-19] MEDS: POTASSIUM CHL 20 Meq TABLET PO SCH (11:14)
[2024-03-19] MEDS: SPIRONOLACTONE 25 MG TAB PO SCH (16:03)
[2024-03-19] MEDS: IVABRADINE 5 MG TAB PO SCH (16:04)
[2024-03-19 22:21] LABS: Sodium 141 mmol/L (136-145)
[2024-03-19 22:22] LABS: Calcium 9.2 mg/dL (8.7-10.4)
[2024-03-19 22:27] LABS: Anion Gap 4.99999 (5-15); BUN/Creatinine Ratio 13.1 (10.0-20.0); Blood Urea Nitrogen 18 mg/dL (9-23); Chloride 96 mmol/L (98-107); Glucose 116 mg/dL (74-106); Potassium 3.3 mmol/L (3.5-5.1)
[2024-03-19 22:31] LABS: Carbon Dioxide > 40 mmol/L (20-31)
[2024-03-20] VITALS (12 sets, daily range): BP systolic 93–112; BP diastolic 47–69; PULSE 71–98; RESP 18–19; TEMP 97.6–98.8; O2SAT 95–100
[2024-03-20] MEDS: acetaZOLAMIDE SODIUM 500 MG VL IV ONE (06:44)
--- NOTE | 2024-03-20 08:51 | DVH ---
CLINICAL INFORMATION: 73 years old, Male; MD request. TECHNIQUE: Single AP portable chest radiograph was obtained. COMPARISON: XY CHEST XRAY 1 VIEW on DOS: 03/15/24, XY CHEST PORTABLE on DOS: 12/14/23, XY CHEST XRAY 1 VIEW on DOS: 12/14/23 FINDINGS: Small bilateral pleural effusions with overlying atelectasis and consolidation are unchanged. Bilater al interstitial opacities and ill-defined airspace opacities again noted, may be slightly improved on the left compared to the prior exam. No other significant interval change. Cardiomegaly and promine nce of the pulmonary vasculature appears unchanged. IMPRESSION: Slightly improved opacities in the left lung compared to the prior exam. No other signif icant interval change as detailed above.
--- NOTE | 2024-03-20 10:47 | DVHPN2 ---
Progress Note - Dictate Date Seen: Mar 20, 2024 Medical Necessity Reason Pt with a Central, PICC or Fol: No Subjective INCREASING SOB HX OF LEFT PLEURAL EFFUSION S/P THORACENTESIS NOW WITH RAPID RECURRENCE DISCUSSED WITH DR ROBERTS FOR CHEST TUBE PLACEMENT PMH LEFT PLEURAL EFFUSION HTN CAD ISCHEMIC CM vital signs Vital Sign Date Time Temp Pulse Resp B/P (MAP) Pulse Ox O2 Delivery O2 Flow Rate FiO2 03/20/24 09:07 74 03/20/24 09:00 97.8 19 109/69 (82) 100 97.8 03/19/24 20:00 Nasal Cannula* 3 32 Total Intake and Output 03/19/24 03/19/24 03/20/24 15:00 23:00 07:00 Intake Total 110 ml 810 ml 910 ml Output Total 1075 ml Balance 110 ml -265 ml 910 ml medications Current Medications Medications Dose Ordered Sig/Kasey Route Start Time Stop Time Status Last Admin Dose Admin Nitroglycerin 0.4 mg Q5MINP PRN SL 03/15/24 15:00 Morphine Sulfate 2 mg Q30M PRN IV 03/15/24 15:00 Furosemide 100 mg/ Sodium Chloride 110 ml @ 22 mls/hr Q5H IV 03/15/24 15:00 03/20/24 05:00 22 MLS/HR Dobutamine HCl/ Dextrose 250 ml @ 13.425 mls/ hr [id number] IV 03/15/24 15:00 03/20/24 06:45 13.425 MLS/HR Amiodarone HCl 200 mg DAILY PO 03/16/24 10:00 03/20/24 09:07 200 MG Cholecalciferol 2,000 unit DAILY PO 03/16/24 10:00 03/20/24 09:05 2,000 UNIT Digoxin 0.125 mg DAILY PO 03/16/24 10:00 03/20/24 09:07 0.125 MG Fluoxetine HCl 10 mg DAILY PO 03/16/24 10:00 03/19/24 09:56 10 MG Fluticasone Propionate 50 mcg Q12HR EACHNOSTRI 03/15/24 22:00 03/20/24 09:08 50 MCG Temazepam 15 mg HSPRN PRN PO 03/15/24 22:30 03/20/24 02:08 15 MG Carbidopa/Levodopa 2 tab BID PO 03/16/24 22:00 03/20/24 09:23 2 TAB Ipratropium [place] 0.5 mg Q6HPRN PRN NEB 03/17/24 14:15 03/17/24 15:25 0.5 MG Potassium Chloride 40 meq BID PO 03/19/24 10:00 03/20/24 09:07 40 MEQ Ivabradine 5 mg BID PO 03/19/24 10:00 03/20/24 09:08 5 MG Spironolactone 25 mg DAILY PO 03/19/24 10:00 03/20/24 09:07 25 MG objective VITAL SIGNS: Blood pressure is 116/80, pulse of 70 and regular. Intraventricular conduction delay. Respirations 20, temperature 98.4. HEENT: Pupils are equal and reactive. Funduscopic exam is benign. Sclerae are anicteric. Extraocular muscles are intact. Tympanic membranes are negative. Nasal passages are intact. Sinuses are nontender. Oral mucosa moist. Posterior pharynx without any exudates. NECK: No nuchal rigidity. No cervical, axillary or supraclavicular adenopathy. Thyroid is within normal limits. JVD about 2 cm above the angle of Andrea. Thyroid is within normal limits. PULMONARY: Clear to auscultation. No egophony, no E to A changes. No rhonchi, no wheezes. Tympanic to percussion. CARDIOVASCULAR: Regular rate. PMI is diffuse, laterally displaced. There is a soft 2/6 systolic murmur along the left sternal border. ABDOMEN: Obese, unable to appreciate an organomegaly. Liver approximately 5 cm in span. Spleen tip nonpalpable. Stool guaiac is negative. No suprapubic tenderness, no CVA tenderness and no epigastric tenderness. EXTREMITIES: 1+ edema. 2+ pulses bilaterally. NEUROLOGIC: DTRs are 2+ symmetrical. Cranial nerves 2-12 within normal limits. Sensory, motor modalities are intact. Negative for Babinski. Negative for Romberg. No ataxia. MUSCULOSKELETAL: Normal development. No cachexia. Strength 5/5 in both upper and lower extremities. laboratory and microbiology Laboratory Tests 03/19/24 21:53 03/18/24 05:00 Test 03/19/24 21:53 Range/Units Serum Glucose 116 H 74-106 mg/dL Problem List INCREASING SOB HX OF LEFT PLEURAL EFFUSION S/P THORACENTESIS HFrEF ANASARCA ACUTE DECOMPENSATION PMH LEFT PLEURAL EFFUSION HTN CAD ISCHEMIC CM ANEMIA HYPOKALEMIA Assessment/Plan DOBUTAMINE LASIX DRIP MONITOR K AND RENAL FUNCTION REPEAT CXR CORRECT K TOTAL OF 3L NEGATIVE BUT THIS IS AN ESTIMATE STILL WITH SIGNIFICANT VOLUME OVERLOAD INCREASE DOBUTAMINE TO 5 MCG CORRECT K CONTRACTION ALKALOSIS ADD DIAMOX POOR PROGNOSIS CORRECT K Dietary Evaluation Review Comments: 1) Consider a Cardiac diet 2) Continue current plan of care Expected Outcomes/Goals: F/U in 3-5 days Plan discussed with: Patient, Spouse, Daughter Critical Care Time(min): 35 STEFANY RANKIN MD Mar 20, 2024 10:47
[2024-03-20] MEDS: POTASSIUM CHL 20 Meq TABLET PO ONE (12:46)
[2024-03-21] VITALS (12 sets, daily range): BP systolic 92–120; BP diastolic 49–70; PULSE 69–82; RESP 18–20; TEMP 97.3–98.3; O2SAT 96–100
[2024-03-21 06:49] LABS: Potassium 3.7 mmol/L (3.5-5.1); Sodium 140 mmol/L (136-145)
[2024-03-21 06:50] LABS: Anion Gap 5 (5-15); Calcium 9.4 mg/dL (8.7-10.4)
[2024-03-21 06:55] LABS: BUN/Creatinine Ratio 12.9 (10.0-20.0); Blood Urea Nitrogen 18 mg/dL (9-23)
[2024-03-21 06:57] LABS: Carbon Dioxide 39 mmol/L (20-31); Chloride 96 mmol/L (98-107); Glucose 108 mg/dL (74-106)
--- NOTE | 2024-03-21 13:36 | DVHPN2 ---
Progress Note - Dictate Date Seen: Mar 21, 2024 Medical Necessity Reason Pt with a Central, PICC or Fol: Yes Subjective INCREASING SOB HX OF LEFT PLEURAL EFFUSION S/P THORACENTESIS NOW WITH RAPID RECURRENCE DISCUSSED WITH DR ROBERTS FOR CHEST TUBE PLACEMENT PMH LEFT PLEURAL EFFUSION HTN CAD ISCHEMIC CM vital signs Vital Sign Date Time Temp Pulse Resp B/P (MAP) Pulse Ox O2 Delivery O2 Flow Rate FiO2 03/21/24 11:00 100/52 03/21/24 10:49 72 03/21/24 10:00 98 Nasal Cannula 3.0 03/21/24 10:00 32 03/21/24 09:00 97.7 18 97.7 Total Intake and Output 03/20/24 03/20/24 03/21/24 15:00 23:00 07:00 Intake Total 910 ml 1270 ml Output Total 1150 ml 2050 ml 1250 ml Balance -1150 ml -1140 ml 20 ml medications Current Medications Medications Dose Ordered Sig/Kasey Route Start Time Stop Time Status Last Admin Dose Admin Nitroglycerin 0.4 mg Q5MINP PRN SL 03/15/24 15:00 Morphine Sulfate 2 mg Q30M PRN IV 03/15/24 15:00 Furosemide 100 mg/ Sodium Chloride 110 ml @ 22 mls/hr Q5H IV 03/15/24 15:00 03/21/24 11:00 22 MLS/HR Dobutamine HCl/ Dextrose 250 ml @ 13.425 mls/ hr [id number] IV 03/15/24 15:00 03/21/24 05:45 13.425 MLS/HR Amiodarone HCl 200 mg DAILY PO 03/16/24 10:00 03/21/24 10:52 200 MG Cholecalciferol 2,000 unit DAILY PO 03/16/24 10:00 03/21/24 10:52 2,000 UNIT Digoxin 0.125 mg DAILY PO 03/16/24 10:00 03/21/24 10:49 0.125 MG Fluoxetine HCl 10 mg DAILY PO 03/16/24 10:00 03/21/24 10:00 10 MG Fluticasone Propionate 50 mcg Q12HR EACHNOSTRI 03/15/24 22:00 03/21/24 10:00 50 MCG Temazepam 15 mg HSPRN PRN PO 03/15/24 22:30 03/20/24 22:32 15 MG Carbidopa/Levodopa 2 tab BID PO 03/16/24 22:00 03/21/24 10:51 2 TAB Ipratropium [place] 0.5 mg Q6HPRN PRN NEB 03/17/24 14:15 03/17/24 15:25 0.5 MG Potassium Chloride 40 meq BID PO 03/19/24 10:00 03/21/24 10:51 40 MEQ Ivabradine 5 mg BID PO 03/19/24 10:00 03/21/24 10:00 5 MG Spironolactone 25 mg DAILY PO 03/19/24 10:00 03/20/24 09:07 25 MG objective VITAL SIGNS: Blood pressure is 116/80, pulse of 70 and regular. Intraventricular conduction delay. Respirations 20, temperature 98.4. HEENT: Pupils are equal and reactive. Funduscopic exam is benign. Sclerae are anicteric. Extraocular muscles are intact. Tympanic membranes are negative. Nasal passages are intact. Sinuses are nontender. Oral mucosa moist. Posterior pharynx without any exudates. NECK: No nuchal rigidity. No cervical, axillary or supraclavicular adenopathy. Thyroid is within normal limits. JVD about 2 cm above the angle of Andrea. Thyroid is within normal limits. PULMONARY: Clear to auscultation. No egophony, no E to A changes. No rhonchi, no wheezes. Tympanic to percussion. CARDIOVASCULAR: Regular rate. PMI is diffuse, laterally displaced. There is a soft 2/6 systolic murmur along the left sternal border. ABDOMEN: Obese, unable to appreciate an organomegaly. Liver approximately 5 cm in span. Spleen tip nonpalpable. Stool guaiac is negative. No suprapubic tenderness, no CVA tenderness and no epigastric tenderness. EXTREMITIES: 1+ edema. 2+ pulses bilaterally. NEUROLOGIC: DTRs are 2+ symmetrical. Cranial nerves 2-12 within normal limits. Sensory, motor modalities are intact. Negative for Babinski. Negative for Romberg. No ataxia. MUSCULOSKELETAL: Normal development. No cachexia. Strength 5/5 in both upper and lower extremities. laboratory and microbiology Laboratory Tests 03/21/24 06:03 03/18/24 05:00 Test 03/21/24 06:03 Range/Units Serum Glucose 108 H 74-106 mg/dL Problem List INCREASING SOB HX OF LEFT PLEURAL EFFUSION S/P THORACENTESIS HFrEF ANASARCA ACUTE DECOMPENSATION PMH LEFT PLEURAL EFFUSION HTN CAD ISCHEMIC CM ANEMIA HYPOKALEMIA Assessment/Plan DOBUTAMINE LASIX DRIP MONITOR K AND RENAL FUNCTION REPEAT CXR CORRECT K TOTAL OF 3L NEGATIVE BUT THIS IS AN ESTIMATE STILL WITH SIGNIFICANT VOLUME OVERLOAD INCREASE DOBUTAMINE TO 5 MCG CORRECT K CONTRACTION ALKALOSIS ADD DIAMOX POOR PROGNOSIS CORRECT K BETTER DIURESIS DIAMOX AGAIN CHECK LABS Dietary Evaluation Review Comments: 1) Consider a Cardiac diet 2) Continue current plan of care Expected Outcomes/Goals: F/U in 3-5 days Plan discussed with: Patient STEFANY RANKIN MD Mar 21, 2024 13:36
[2024-03-21] MEDS: acetaZOLAMIDE SODIUM 500 MG VL IV ONE (13:45)
[2024-03-22] VITALS (11 sets, daily range): BP systolic 85–105; BP diastolic 41–72; PULSE 67–86; RESP 18–19; TEMP 97.7–98.7; O2SAT 96–100
[2024-03-22 07:59] LABS: Calcium 9.6 mg/dL (8.7-10.4); Potassium 3.6 mmol/L (3.5-5.1); Sodium 141 mmol/L (136-145)
[2024-03-22 08:00] LABS: Anion Gap 7 (5-15)
[2024-03-22 08:05] LABS: Blood Urea Nitrogen 19 mg/dL (9-23); Glucose 97 mg/dL (74-106)
[2024-03-22 08:08] LABS: Carbon Dioxide 37 mmol/L (20-31); Chloride 97 mmol/L (98-107)
[2024-03-23] VITALS (11 sets, daily range): BP systolic 89–106; BP diastolic 51–66; PULSE 66–74; RESP 17–20; TEMP 97.5–98.5; O2SAT 91–100
[2024-03-24] VITALS (9 sets, daily range): BP systolic 93–104; BP diastolic 59–62; PULSE 67–71; RESP 17–18; TEMP 97.2–98.7; O2SAT 98–100
--- NOTE | 2024-03-24 13:17 | DVHPN2 ---
Progress Note - Dictate Date Seen: Mar 22, 2024 Medical Necessity Reason Pt with a Central, PICC or Fol: Yes Subjective INCREASING SOB HX OF LEFT PLEURAL EFFUSION S/P THORACENTESIS NOW WITH RAPID RECURRENCE DISCUSSED WITH DR ROBERTS FOR CHEST TUBE PLACEMENT PMH LEFT PLEURAL EFFUSION HTN CAD ISCHEMIC CM vital signs Vital Sign Date Time Temp Pulse Resp B/P (MAP) Pulse Ox O2 Delivery O2 Flow Rate FiO2 03/24/24 10:44 101/62 03/24/24 10:43 71 03/24/24 10:00 99 Nasal Cannula* 3 32 03/24/24 08:30 97.2 17 97.2 Total Intake and Output 03/23/24 03/23/24 03/24/24 15:00 23:00 07:00 Intake Total 110 ml 845 ml 120 ml Output Total 900 ml 1800 ml Balance 110 ml -55 ml -1680 ml medications Current Medications Medications Dose Ordered Sig/Kasey Route Start Time Stop Time Status Last Admin Dose Admin Nitroglycerin 0.4 mg Q5MINP PRN SL 03/15/24 15:00 Morphine Sulfate 2 mg Q30M PRN IV 03/15/24 15:00 Furosemide 100 mg/ Sodium Chloride 110 ml @ 22 mls/hr Q5H IV 03/15/24 15:00 03/24/24 10:44 22 MLS/HR Dobutamine HCl/ Dextrose 250 ml @ 13.425 mls/ hr [id number] IV 03/15/24 15:00 03/24/24 04:01 13.425 MLS/HR Amiodarone HCl 200 mg DAILY PO 03/16/24 10:00 03/24/24 10:44 200 MG Cholecalciferol 2,000 unit DAILY PO 03/16/24 10:00 03/24/24 10:43 2,000 UNIT Digoxin 0.125 mg DAILY PO 03/16/24 10:00 03/24/24 10:43 0.125 MG Fluoxetine HCl 10 mg DAILY PO 03/16/24 10:00 03/24/24 10:44 10 MG Fluticasone Propionate 50 mcg Q12HR EACHNOSTRI 03/15/24 22:00 03/24/24 10:44 50 MCG Carbidopa/Levodopa 2 tab BID PO 03/16/24 22:00 03/24/24 10:44 2 TAB Ipratropium [place] 0.5 mg Q6HPRN PRN NEB 03/17/24 14:15 03/17/24 15:25 0.5 MG Potassium Chloride 40 meq BID PO 03/19/24 10:00 03/24/24 10:44 40 MEQ Ivabradine 5 mg BID PO 03/19/24 10:00 03/24/24 10:45 5 MG Spironolactone 25 mg DAILY PO 03/19/24 10:00 03/24/24 10:43 25 MG objective VITAL SIGNS: Blood pressure is 116/80, pulse of 70 and regular. Intraventricular conduction delay. Respirations 20, temperature 98.4. HEENT: Pupils are equal and reactive. Funduscopic exam is benign. Sclerae are anicteric. Extraocular muscles are intact. Tympanic membranes are negative. Nasal passages are intact. Sinuses are nontender. Oral mucosa moist. Posterior pharynx without any exudates. NECK: No nuchal rigidity. No cervical, axillary or supraclavicular adenopathy. Thyroid is within normal limits. JVD about 2 cm above the angle of Andrea. Thyroid is within normal limits. PULMONARY: Clear to auscultation. No egophony, no E to A changes. No rhonchi, no wheezes. Tympanic to percussion. CARDIOVASCULAR: Regular rate. PMI is diffuse, laterally displaced. There is a soft 2/6 systolic murmur along the left sternal border. ABDOMEN: Obese, unable to appreciate an organomegaly. Liver approximately 5 cm in span. Spleen tip nonpalpable. Stool guaiac is negative. No suprapubic tenderness, no CVA tenderness and no epigastric tenderness. EXTREMITIES: 1+ edema. 2+ pulses bilaterally. NEUROLOGIC: DTRs are 2+ symmetrical. Cranial nerves 2-12 within normal limits. Sensory, motor modalities are intact. Negative for Babinski. Negative for Romberg. No ataxia. MUSCULOSKELETAL: Normal development. No cachexia. Strength 5/5 in both upper and lower extremities. laboratory and microbiology Laboratory Tests 03/22/24 06:42 03/18/24 05:00 Test 03/22/24 06:42 Range/Units Serum Glucose 97 74-106 mg/dL Problem List INCREASING SOB HX OF LEFT PLEURAL EFFUSION S/P THORACENTESIS HFrEF ANASARCA ACUTE DECOMPENSATION PMH LEFT PLEURAL EFFUSION HTN CAD ISCHEMIC CM ANEMIA HYPOKALEMIA Assessment/Plan DOBUTAMINE LASIX DRIP MONITOR K AND RENAL FUNCTION REPEAT CXR CORRECT K TOTAL OF 3L NEGATIVE BUT THIS IS AN ESTIMATE STILL WITH SIGNIFICANT VOLUME OVERLOAD INCREASE DOBUTAMINE TO 5 MCG CORRECT K CONTRACTION ALKALOSIS ADD DIAMOX POOR PROGNOSIS CORRECT K BETTER DIURESIS DIAMOX AGAIN CHECK LABS Dietary Evaluation Review Comments: 1) Consider a Cardiac diet 2) Continue current plan of care Expected Outcomes/Goals: F/U in 3-5 days Plan discussed with: Patient Critical Care Time(min): 35 STEFANY RANKIN MD Mar 24, 2024 13:17
--- NOTE | 2024-03-24 15:35 | DVH ---
CHEST RADIOGRAPH Indication: [LEURAL EFFUSION Technique: Single AP portable chest radiograph was obtained. Comparison: XY CHEST PORTABLE on DOS: 03/20/24, XY CHEST XRAY 1 VIEW on DOS: 03/15/24, XY CHEST PORTAB LE on DOS: 12/14/23, XY CHEST XRAY 1 VIEW on DOS: 12/14/23, XY CHEST XRAY 1 VIEW on DOS: 12/13/23, XY CH EST PORTABLE on DOS: 03/20/24 FINDINGS: Small bilateral pleural effusions with overlying atelectasis and consolidation are unchanged. Bilater al interstitial opacities and ill-defined airspace opacities again noted, may be slightly improved on the left compared to the prior exam. No other significant interval change. Cardiomegaly and promine nce of the pulmonary vasculature appears unchanged. IMPRESSION: Slightly improved opacities in the left lung compared to the prior exam. No other significant interv al change as detailed above.
[2024-03-24 16:26] LABS: Sodium 141 mmol/L (136-145)
[2024-03-24 16:27] LABS: Anion Gap 6 (5-15); Calcium 9.7 mg/dL (8.7-10.4)
[2024-03-24 16:32] LABS: BUN/Creatinine Ratio 15.9 (10.0-20.0)
[2024-03-24 16:35] LABS: Blood Urea Nitrogen 25 mg/dL (9-23); Carbon Dioxide 39 mmol/L (20-31); Chloride 96 mmol/L (98-107); Glucose 138 mg/dL (74-106)
--- NOTE | 2024-03-24 16:49 | DVHDS2 ---
Discharge Summary Date of Admission Mar 15, 2024 at 14:14 Date of Discharge: Mar 24, 2024 Admitting Diagnosis HFrEF ACUTE Labs/Diagnostic Data: Laboratory Results Test 03/24/24 15:55 03/18/24 05:00 03/17/24 07:30 Sodium Level 141 mmol/L (136-145) Potassium Level 4.0 mmol/L (3.5-5.1) Chloride Level 96 mmol/L (98-107) Carbon Dioxide Level 39 mmol/L (20-31) Anion Gap 6 (5-15) Blood Urea Nitrogen 25 mg/dL (9-23) Creatinine 1.57 mg/dL (0.700-1.30) Glomerular Filtration Rate Calc 47 mL/min (>90) BUN/Creatinine Ratio 15.9 (10.0-20.0) Serum Glucose 138 mg/dL (74-106) Calcium Level 9.7 mg/dL (8.7-10.4) B-Type Natriuretic Peptide 2216.19 pg/mL (0-100) White Blood Count 5.1 10^3/uL (4.4-10.8) Red Blood Count 3.00 10^6/uL (4.5-5.90) Hemoglobin 9.8 g/dL (13.5-17.5) Hematocrit 29.4 % (41.0-53.0) Mean Corpuscular Volume 98.2 fL (80.0-100.0) Mean Corpuscular Hemoglobin 32.6 pg (28.0-32.0) Mean Corpuscular Hemoglobin Concent 33.3 g/dL (32.0-36.0) Red Cell Distribution Width 16.9 % (11.8-14.3) Platelet Count 192 10^3/uL (140-450) Mean Platelet Volume 7.9 fL (6.9-10.8) Neutrophils (%) (Auto) 80.2 % (37.0-80.0) Lymphocytes (%) (Auto) 5.9 % (10.0-50.0) Monocytes (%) (Auto) 10.8 % (0.0-12.0) Eosinophils (%) (Auto) 2.9 % (0.0-7.0) Basophils (%) (Auto) 0.2 % (0.0-2.0) Neutrophils # (Auto) 4.1 10 ^3/uL (1.6-8.6) Lymphocytes # (Auto) 0.3 10 ^3/uL (0.4-5.4) Monocytes # (Auto) 0.6 10 ^3/uL (0-1.3) Eosinophils # (Auto) 0.2 10 ^3/uL (0-0.8) Basophils # (Auto) 0 10 ^3/uL (0-0.2) Nucleated Red Blood Cells 0.0 % Total Bilirubin 1.0 mg/dL (0.2-1.0) Aspartate Amino Transferase (AST) 16 U/L (13-40) Alanine Aminotransferase (ALT) < 9 U/L (7-40) Alkaline Phosphatase 71 U/L (46-116) Total Protein 5.8 g/dL (5.7-8.2) Albumin 3.6 g/dL (3.2-4.8) Other Laboratory Tests 03/24/24 15:55 03/18/24 05:00 Brief Hx & Hospital Course: INCREASING SOB HX OF LEFT PLEURAL EFFUSION S/P THORACENTESIS HFrEF ANASARCA ACUTE DECOMPENSATION PMH LEFT PLEURAL EFFUSION HTN CAD ISCHEMIC CM ANEMIA HYPOKALEMIA Assessment/Plan DOBUTAMINE LASIX DRIP MONITOR K AND RENAL FUNCTION REPEAT CXR CORRECT K TOTAL OF 3L NEGATIVE BUT THIS IS AN ESTIMATE STILL WITH SIGNIFICANT VOLUME OVERLOAD INCREASE DOBUTAMINE TO 5 MCG CORRECT K CONTRACTION ALKALOSIS ADD DIAMOX POOR PROGNOSIS CORRECT K BETTER DIURESIS DIAMOX AGAIN CHECK LABS NOW 7L NEGATIVE MAY DC HOME POOR PROGNOSIS Condition at Discharge: Poor Final Diagnosis/Problems List HFrEF ACUTE ASCITES PLEURAL EFFUSION Discharge Disposition: Home Discharge Instruct/Medications Diet: Cardiac 2g Na,low cholest Activity: Light activity Follow Up/Referral: SUNDAY Medications: RESUME HOME MEDS Discharge Statement: "Patient was advised to return to the ER or call 911 if any headaches, dizziness, shortness of breath, chest pain, abdominal pain, bleeding, fevers, or worsening of medical condition. Patient was counseled about treatment plan, medications, possible side effects, patientverbalized understanding. All questions were answered to the best of my ability. This discharge took greater then 30 minutes in planning, reviewing documentation, counseling the patient, and discussing with other team members." ASSESSMENT ASSESSMENT Assessment HFrEF ACUTE ASCITES PLEURAL EFFUSION STEAFNY RANKIN MD Mar 24, 2024 16:49
== END 2024-03-24 19:02 | disposition home or self-care (01) | DRG 291 ==
LOC: TELE 14:14 → TELE-EAST 14:28
PROVIDERS: ADMIT Internal Medicine Cardiovascular Disease; ATTEND Internal Medicine Cardiovascular Disease
DX: I11.0 Hypertensive heart disease with heart failure (principal); I50.21 Acute systolic (congestive) heart failure; E87.3 Alkalosis; R18.8 Other ascites; I25.10 Atherosclerotic heart disease of native coronary artery without angina pectoris; I25.5 Ischemic cardiomyopathy; Z88.0 Allergy status to penicillin
CPT/HCPCS: 36415; 71045; 80048; 80053; 83880; 84132; 85025; 94640; G0378; J3480

== ENCOUNTER → 2024-03-31 | Outpatient (CLI) | payer MEDICARE ==
[2024-03-31] VITALS (11 sets, daily range): BP systolic 94–106; BP diastolic 47–62; PULSE 70–73; RESP 18; O2SAT 98
[2024-03-31] MEDS: DOBUTamine 1000MCG/ML 250 ML IV ONE ×2 (09:47→09:56)
[2024-03-31] MEDS: TESTOSTERONE CYPIONATE 200 MG/ML 1ML VIAL IM ONE ×2 (10:53→13:57)
[2024-03-31] MEDS: CYANOCOBALAMIN (B-12) 1000 MCG/1 ML VIAL ONE (10:53)
[2024-03-31] MEDS: BUMETANIDE INJECTION 10 ML ONE (10:53)
[2024-03-31] MEDS: POTASSIUM CHL 20 Meq TABLET PO ONE ×2 (10:54→12:12)
[2024-03-31] MEDS: BUMETANIDE 2.5mg/10ml (0.25 mg/ml) INJ IV ONE (12:12)
[2024-03-31] MEDS: CYANOCOBALAMIN (B-12) 1000 MCG/1 ML VIAL IM ONE (13:58)
== END | disposition home or self-care (01) ==
LOC: CHF HDHVI 09:21
PROVIDERS: ATTEND Internal Medicine Cardiovascular Disease
DX: D64.9 Anemia, unspecified (principal); I50.23 Acute on chronic systolic (congestive) heart failure; R06.02 Shortness of breath; R60.9 Edema, unspecified; I25.10 Atherosclerotic heart disease of native coronary artery without angina pectoris; E29.1 Testicular hypofunction; Z79.899 Other long term (current) drug therapy
CPT/HCPCS: 96365; 96366; 96372; G0463; J1071; J1250; J3420

== ENCOUNTER → 2024-04-07 | Outpatient (CLI) | payer MEDICARE ==
[2024-04-07] VITALS (11 sets, daily range): BP systolic 90–108; BP diastolic 49–57; PULSE 77–87; RESP 18–82; O2SAT 95–98
[2024-04-07] MEDS: DOBUTamine 1000MCG/ML 250 ML IV ONE ×2 (09:11→09:27)
[2024-04-07] MEDS: POTASSIUM CHL 20 Meq TABLET PO ONE ×2 (10:45→11:13)
[2024-04-07] MEDS: BUMETANIDE INJECTION 10 ML ONE (10:45)
[2024-04-07] MEDS: BUMETANIDE 2.5mg/10ml (0.25 mg/ml) INJ IV ONE (11:12)
== END | disposition home or self-care (01) ==
LOC: CHF HDHVI 09:02
PROVIDERS: ATTEND Internal Medicine Cardiovascular Disease
DX: I11.0 Hypertensive heart disease with heart failure (principal); I50.23 Acute on chronic systolic (congestive) heart failure; I25.5 Ischemic cardiomyopathy; I25.10 Atherosclerotic heart disease of native coronary artery without angina pectoris; I25.2 Old myocardial infarction; Z79.899 Other long term (current) drug therapy
CPT/HCPCS: 96365; 96366; 96375; G0463; J1250; 96374

== ENCOUNTER → 2024-04-11 | Outpatient (CLI) | payer MEDICARE ==
[2024-04-11 11:00] VITALS: BP 111/69; PULSE 87; RESP 16; O2SAT 99
[2024-04-11] MEDS: BUMETANIDE INJECTION 10 ML ONE (11:06)
[2024-04-11] MEDS: metOLazone 5 MG TAB ONE (11:06)
[2024-04-11] MEDS: POTASSIUM CHL 20 Meq TABLET PO ONE ×2 (11:06→11:21)
[2024-04-11] MEDS: BUMETANIDE 2.5mg/10ml (0.25 mg/ml) INJ IV ONE (11:13)
[2024-04-11] MEDS: metOLazone 5 MG TAB PO ONE (11:21)
[2024-04-11 11:25] VITALS: BP 101/69; PULSE 86; RESP 16; O2SAT 99
--- NOTE | 2024-04-11 13:16 | DVH ---
EXAM: XY CHEST TWO VIEWS ROUTINE CLINICAL HISTORY: SOB COMPARISON: XY CHEST TWO VIEWS ROUTINE on DOS: 02/22/24, XY CHEST TWO VIEWS ROUTINE on DOS: 02/11/24, XY CHEST TWO VIEWS ROUTINE on DOS: 11/28/23, XY CHEST TWO VIEWS ROUTINE on DOS: 11/12/23, XY BILATERAL DECUBITUS CHEST XRAY on DOS: 11/02/23 TECHNIQUE: Frontal and lateral view of the chest was obtained FINDINGS: Lines and Tubes: Cardiac pacemaker projects over left chest wall. Lungs: Small bilateral pleural effusions. Bibasilar opacities Cardiomediastinal contours: Cardiomegaly. Bones: No acute osseous abnormality. IMPRESSION: Cardiomegaly and small bilateral pleural effusions.
== END | disposition home or self-care (01) ==
LOC: Rad HDHVI 10:58
PROVIDERS: ATTEND Internal Medicine Cardiovascular Disease
DX: I11.0 Hypertensive heart disease with heart failure (principal); I50.23 Acute on chronic systolic (congestive) heart failure; R60.9 Edema, unspecified; R06.02 Shortness of breath
CPT/HCPCS: 71046; 96374; G0463

== ENCOUNTER → 2024-04-14 | Outpatient (CLI) | payer MEDICARE ==
[2024-04-14] VITALS (11 sets, daily range): BP systolic 71–91; BP diastolic 39–58; PULSE 79–86; RESP 16; O2SAT 97
[2024-04-14] MEDS: DOBUTamine 1000MCG/ML 250 ML IV ONE ×2 (09:22→09:32)
[2024-04-14] MEDS: ALBUMIN 25% 100 ML IV ONE ×4 (12:22→13:12)
== END | disposition home or self-care (01) ==
LOC: CHF HDHVI 09:11
PROVIDERS: ATTEND Internal Medicine Cardiovascular Disease
DX: I11.0 Hypertensive heart disease with heart failure (principal); I50.23 Acute on chronic systolic (congestive) heart failure; I25.2 Old myocardial infarction; I25.10 Atherosclerotic heart disease of native coronary artery without angina pectoris; Z79.899 Other long term (current) drug therapy
CPT/HCPCS: 96365; 96366; 96367; G0463; J1250; P9047

== ENCOUNTER → 2024-04-18 | Outpatient (CLI) | payer MEDICARE ==
[2024-04-18 11:40] VITALS: BP 75/40; PULSE 72; RESP 16; O2SAT 94
[2024-04-18 11:56] VITALS: BP 80/50
== END | disposition home or self-care (01) ==
LOC: CHF HDHVI 11:35
PROVIDERS: ATTEND Internal Medicine Cardiovascular Disease
DX: I50.9 Heart failure, unspecified (principal)
CPT/HCPCS: G0463